=== PATIENT | male | born 1955 | race Caucasian/White ===

== ENCOUNTER 2022-09-03 10:38 | Inpatient (IN) | payer MEDICARE, SELFPAY ==
[2022-09-03] VITALS (13 sets, daily range): BP systolic 114–159; BP diastolic 74–106; PULSE 60–99; RESP 16–18; TEMP 36.7–36.8; O2SAT 95–100; BMI 27.4
--- NOTE | 2022-09-03 06:00 | USCV_ITS ---
Michael Miranda Age: 66 Gender: M : 1955 Exam Date: 09/03/2022 20:11 Ordering Phys: Katelyn Bernard MD Technologist: HERBERTH [place] [facility] [place]: slurred speech, dizziness today. 2021 - RT hemiparesis TIA. long-term smoker, continues smoking. No DM Risk Factors: slurred speech, dizziness today. 2021 - RT hemiparesis TIA. long-term smoker, continues smoking. No DM Previous Vascular Surgery: None Right Brachial BP: 135 / 81 Left Brachial BP: / Right Left Velocity (cm/s) Spectral Plaque Velocity (cm/s) Spectral Plaque Syst/Diast Broadening Syst/Diast Broadening 46.50/ 16.00 Min Homo Prox CCA 69.50 / 19.00 Min Homo 58.70/ 17.10 Min Hetro Mid CCA 77.70 / 25.60 Min Hetro 76.90/ 26.40 Mod Hetro Distal CCA 76.10 / 24.80 Mod Hetro 123.50/40.80 Mod Arun Prox ICA 131.20/ 34.70 Mod Arun 62.90/ 24.90 Mod Hetro Mid ICA 107.10/ 39.20 Mod Hetro 88.50/ 33.90 Min Hetro Distal ICA 83.20 / 34.10 Min Hetro 140.00 Min Hetro ECA 161.30 Min Hetro 1.61 ICA/CCA 1.69 Antegrade Vertebral Antegrade 53.80/ 20.70 cm/s 52.10/ 26.50 cm/s Tri Subclavian Tri 70.30 98.40 CONCLUSIONS Right ICA stenosis approximately 50%. Moderate calcified atheromatous plaque right carotid bulb/ICA. Left ICA stenosis 50-69%. Moderate calcified atheromatous plaque left carotid bulb/ICA. Normal antegrade Doppler flow noted in the right vertebral artery. Normal antegrade Doppler flow noted in the left vertebral artery. Jacob Sarmiento MD (Electronically Signed) Final Date: 04 September 2022 10:01 S
--- NOTE | 2022-09-03 10:45 | CT_ITS ---
WS: [id number] CT scan of the head, 09/03/2022 Clinical Data: Symptoms of acute stroke Comparison: None. DLP: 1144.5 mGy-cm All CT scans at [facility] use at least one of these dose optimization techniques: automated e xposure control; mA and/or kV adjustment per patient size (includes targeted exams where dose is matc hed to clinical indication); or iterative reconstruction. Findings: The ventricular system is mildly dilated without shift. No recent infarct or hemorrhage is seen. Ther e are no abnormal intracerebral masses. The cerebellum and brainstem are not remarkable. Bony windows of the skull and skull base show no fractures or erosions. The maxillary sinuses show al most total opacification. There is partial opacification of the ethmoid sinuses. The mastoid air cell s and internal auditory canals are normal. The sella turcica is intact. CT/CT head thrombolytic 95374 Impression: 1. Mild cerebral atrophy. 2. Chronic pansinusitis.
--- NOTE | 2022-09-03 10:45 | ECG_ITS ---
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 Measurements Intervals [place] Rate: 67 P: 77 [place]: 181 QRS: 49 QRSD: 95 T: 266 QT: 423 QTc: 447 Interpretive Statements SINUS RHYTHM ANTEROSEPTAL MYOCARDIAL INFARCTION , OF INDETERMINATE AGE [40+ ms Q WAVE IN V1-V4] MODERATE T-WAVE ABNORMALITY, CONSIDER LATERAL ISCHEMIA [-0.1+ mV T-WAVE IN I/aVL/V5/V6] MODERATE T-WAVE ABNORMALITY, CONSIDER INFERIOR ISCHEMIA [-0.1+ mV T-WAVE IN II/aVF] No previous ECG available for comparison Electronically Signed On 09-03-2022 23:09:14 CDT by Melody Jacobo M.D. [id number]
--- NOTE | 2022-09-03 10:50 | ED_ITS ---
HPI - Neuro Symptoms/Deficit General: Chief Complaint: Neuro Symptoms/Deficit Stated Complaint: TIA Time Seen by Provider: 09/03/22 10:45 Source: patient Mode of arrival: EMS History of Present Illness: 66-year-old male presents emergency room complaining difficulty speaking. He said woke up this morning and his speech seemed to be slurred. Last time he knows his speech seemed normal to him was around 8 PM last night his daughter noticed that his speech was slurred shortly after he got up this morning. He states he also felt a little bit dizzy sign difficulty with swallowing. He tells me if he still feels like his speech is slurred. Patient is a dentulous a little bit difficult to understand. There is no one at the bedside that can confirm his baseline speech pattern. He denies chest pain or abdominal pain or shortness of breath. Last Observed Normal: 20:00 Location: speech Severity: mild Relieving factors: none Exacerbating factors: none Associated symptoms: Deny chest pain, cough, diaphoresis, fevers/chills, headache(s), anorexia, malaise, nausea, seizures, short of breath, syncope, tingling, vertigo, vomiting or weakness Treatments Prior to Arrival: none Review of Systems Const: Denies: fever(s), chills, fatigue, malaise or diaphoresis ENMT: Denies: throat pain, ear or mastoid pain, nasal discharge or nasal congestion Card: Denies: chest pain, palpitations, irregular heart rhythm, edema or syncope Resp: Denies: dyspnea, productive cough or non-productive cough GI: Denies: abdominal pain, nausea or vomiting : Denies: flank pain, dysuria, urinary frequency or urinary urgency Skin/Breast: Denies: rash or pruritus Neuro: Reports: Slurred speech present; Denies: headache(s) or vertigo Psych: Reports: anxiety PFSH ED PFSH: Medical History (Updated 09/04/22 @ 06:13 by Getachew Curtis DO) HTN (hypertension) Hx of completed stroke NIH stroke score NIHSS: Level Of Consciousness - 1a: 0 Level Of Consciousness Questions - 1b: Both Correct Level Of Consciousness Commands - 1c: Both Correct Best Gaze - 2: Normal Visual [place] - 3: No Visual Loss Facial Palsy - 4: Normal Motor Arm Right - 5: No Drift Motor Arm Left - 5: No Drift Motor Leg Right - 6: No Drift Motor Leg Left - 6: No Drift Limb Ataxia - 7: Absent Sensory - 8: Normal Best Language - 9: No Aphasia Dysarthia - 10: Mild/Moderate Dysarthia Extinction And Inattention - 11: 0 Score: Total Score: 1 Physical Exam Const: GENERAL APPEARANCE: cooperative and comfortable ORIENTATION/CONSCIOUSNESS: Yes awake, Yes oriented to person, Yes oriented to place and Yes oriented to time HENMT: COMMON NORMALS: normocephalic, atraumatic and hearing grossly normal bilaterally HEAD & SCALP: normocephalic and atraumatic Resp: COMMON NORMALS: normal respiratory effort, No retractions, No use of accessory muscles and clear to auscultation bilaterally AUSCULTATION: clear to auscultation bilaterally Cardio: COMMON NORMALS: regular rate, regular rhythm and No murmurs present (Cardio) RATE: regular rate RHYTHM: regular rhythm GI: COMMON NORMALS: Soft to palpation and No hepatosplenomegaly present AUSCULTATION: Yes normoactive bowel sounds PALPATION: Yes Soft to palpation, No Tenderness to palpation present (GI), No Guarding due to palpation present (GI) and Yes No hepatosplenomegaly present Extremity: COMMON NORMALS: normal to inspection, capillary refill normal, no clubbing, cyanosis or edema, no calf tenderness and no pedal edema Neuro: SENSORIUM/ORIENTATION: Yes oriented to person, Yes oriented to place and Yes oriented to time Skin: COMMON NORMALS: no rashes or lesions noted GENERAL SKIN EXAM: no rashes or lesions noted Course Vital Signs: Vital signs: Vital Signs Temperature 98.0 F 09/04/22 05:46 Pulse Rate 75 09/04/22 05:46 Respiratory Rate 16 09/04/22 05:46 Blood Pressure 114/80 09/04/22 05:46 Pulse Oximetry 94 09/04/22 05:18 Oxygen Delivery Me thod 09/04/22 05:18 MDM - Neuro Symptoms/Deficit Medical Decision Making History of CVA with new onset of slurred speech. Family at the bedside states his speech is still slurred and has not resolved. He is outside the window for any tPA and stroke score is below what would be considered eligible for embolectomy. Repeat NIH evaluation after his initial work-up was completed and is unchanged. We will admit for evaluation for CVA patient tells me he is previously had a CVA but he is not taking any antiplatelet therapy or statin. He will need further evaluation and potential interventions for secondary prevention. Medical Records I reviewed the patient's medical records. Lab Data I reviewed the patient's lab results. 09/04/22 05:05 09/04/22 05:[address] 09/03/22 10:45 Impression: 1. Mild cerebral atrophy. 2. Chronic pansinusitis. Laboratory Results WBC 8.0 10^3/uL (4.0-10.0) 09/03/22 11:21 RBC 4.11 10^6/uL (4.1-5.3) 09/03/22 11:21 Hgb 13.6 g/dL (11.7-16.6) 09/03/22 11: Hct 39.6 % (42.0-52.0) L 09/03/22 11: MCV 96.4 fl (80-94) H 09/03/22 11:21 MCH 33.1 pg (28.0-34.0) 09/03/22 11:21 MCHC 34.3 g/dL (30.0-36.0) 09/03/22 11:21 RDW 12.5 % (12.1-15.1) 09/03/22 11:21 Plt Count 291 10^3/cmm (130-400) 09/03/22 11:21 MPV 9.9 fL (7.4-10.4) 09/03/22 11:21 Neut % (Auto) 77.4 % 09/03/22 11:21 Lymph % (Auto) 12.7 % 09/03/22 11:21 [place] % (Auto) 7.2 % 09/03/22 11:21 Eos % (Auto) 1.5 % 09/03/22 11:21 Baso % (Auto) 1.0 % 09/03/22 11:21 Neut # (Auto) 6.20 10^3/uL (1.8-7.7) 09/03/22 11:21 Lymph # (Auto) 1.0 10^3/uL (0.8-4.8) 09/03/22 11:21 [place] # (Auto) 0.6 10^3/uL (0.2-0.9) 09/03/22 11:21 Eos # (Auto) 0.1 10^3/uL (0.0-0.8) 09/03/22 11:21 Baso # (Auto) 0.1 10^3/uL (0.0-0.1) 09/03/22 11:21 Nucleated RBC % (auto) 0 % 09/03/22 11:21 Nucleated RBCs # 0.0 /100WBC 09/03/22 11:21 PT 14.30 SECONDS (12.1-14.9) 09/03/22 11:21 INR 1.07 (0.8-1.2) 09/03/22 11:21 APTT 28.2 SECONDS (23.9-36.7) 09/03/22 11:21 Sodium 134 mmol/L (136-145) L 09/03/22 11:21 Potassium 3.9 mmol/L (3.5-5.1) 09/03/22 11:21 Chloride 98 mmol/L (98-107) 09/03/22 11:21 Carbon Dioxide 26 mmol/L (22-29) 09/03/22 11:21 Anion Gap 13.9 (5-19) 09/03/22 11:21 BUN 7 mg/dL (8-23) L 09/03/22 11:21 Creatinine 0.8 mg/dL (0.7-1.2) 09/03/22 11:21 GFR Calculation 97.3 mL/min (90-130) 09/03/22 11:21 Glucose 91 mg/dL (65-115) 09/03/22 11:21 Calculated Osmolality 276 mOsm/kg (285-295) L 09/03/22 11:21 Calcium 9.1 mg/dL (8.5-10.5) 09/03/22 11:21 Total Bilirubin 0.6 mg/dL (0.15-1.2) 09/03/22 11:21 AST 22 U/L (0-40) 09/03/22 11:21 ALT 9 U/L (0-41) 09/03/22 11:21 Alkaline Phosphatase 94 U/L (40-130) 09/03/22 11:21 Total Protein 6.5 g/dL (6.6-8.7) L 09/03/22 11:21 Albumin 3.8 g/dL (3.5-5.2) 09/03/22 11:21 Globulin 2.7 g/dL (1.3-4.6) 09/03/22 11:21 Urine Color Yellow (Yellow) 09/03/22 12:31 Urine Appearance Clear (CLEAR) 09/03/22 12:31 Urine pH 6.5 (5-7) 09/03/22 12:31 Ur Specific [place] 1.005 (1.005-1.030) 09/03/22 12:31 Urine Protein Neg (Negative) 09/03/22 12:31 Urine Glucose (UA) Norm (Normal) 09/03/22 12:31 Urine Ketones 1+ (Negative) H 09/03/22 12:31 Urine Blood Neg (Negative) 09/03/22 12:31 Urine Nitrate Negative (Negative) 09/03/22 12:31 Urine Bilirubin Neg (Negative) 09/03/22 12:31 Urine Urobilinogen 4 mg/dL (Negative) H 09/03/22 12:31 Ur Leukocyte Esterase Negative (Negative) 09/03/22 12:31 Urine Opiates Screen Negative ng/mL (Negative) 09/03/22 12:31 Ur Barbiturates Screen Negative ng/mL (Negative) 09/03/22 12:31 Ur Phencyclidine Scrn Negative ng/mL (Negative) 09/03/22 12:31 Ur Amphetamines Screen Negative ng/mL (Negative) 09/03/22 12:31 U Benzodiazepines Scrn Negative ng/mL (Negative) 09/03/22 12:31 Urine Cocaine Screen Negative ng/mL (Negative) 09/03/22 12:31 U Marijuana (THC) Screen Positive ng/mL (Negative) H 09/03/22 12:31 Discharge Plan Discharge Patient Disposition: Admitted As Inpatient Admit Provider: Katelyn Bernard Clinical Impression: CVA (cerebral vascular accident) Condition: Stable Coding Level of Care Code 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
--- NOTE | 2022-09-03 11:03 | PC.PHAR ---
MEDICATIONS VERIFIED USING EXTERNAL MED LIST LAST FILL[facility]
[2022-09-03 11:30] LABS: Basophils # 0.1 10^3/uL (0.0-0.1); Eosinophils # 0.1 10^3/uL (0.0-0.8); Eosinophils % 1.5 %; Hematocrit 39.6 % (42.0-52.0); Hemoglobin 13.6 g/dL (11.7-16.6); Lymphocytes % 12.7 %; Mean Corpuscular HGB Conc 34.3 g/dL (30.0-36.0); Mean Corpuscular Hemoglobin 33.1 pg (28.0-34.0); Mean Corpuscular Volume 96.4 fl (80-94); Mean Platelet Volume 9.9 fL (7.4-10.4); Monocytes # 0.6 10^3/uL (0.2-0.9); Monocytes % 7.2 %; Neutrophils % 77.4 %; Nucleated Red Blood Cells % 0 %; Platelet Count 291 10^3/cmm (130-400); Red Blood Count 4.11 10^6/uL (4.1-5.3); Red Cell Distribution Width 12.5 % (12.1-15.1)
[2022-09-03 11:42] LABS: INR 1.07 (0.8-1.2); Partial Thromboplastin Time 28.2 SECONDS (23.9-36.7)
[2022-09-03 11:49] LABS: Alanine Aminotransferase 9 U/L (0-41); Albumin Level 3.8 g/dL (3.5-5.2); Alkaline Phosphatase 94 U/L (40-130); Anion Gap 13.9 (5-19); Aspartate Amino Transferase 22 U/L (0-40); Blood Urea Nitrogen 7 mg/dL (8-23); Calcium 9.1 mg/dL (8.5-10.5); Carbon Dioxide 26 mmol/L (22-29); Chloride 98 mmol/L (98-107); Globulin 2.7 g/dL (1.3-4.6); Glomerular Filtration Rate 97.3 mL/min (90-130); Glucose 91 mg/dL (65-115); Osmolality Calculated 276 mOsm/kg (285-295); Potassium 3.9 mmol/L (3.5-5.1); Sodium 134 mmol/L (136-145); Total Bilirubin 0.6 mg/dL (0.15-1.2); Total Protein 6.5 g/dL (6.6-8.7)
[2022-09-03 12:40] LABS: Add Urine Microscopic? NO; Charge for UA Resulting for Rev
[2022-09-03 12:49] LABS: Bilirubin Urine Neg (Negative); Blood Urine Neg (Negative); Glucose Urine UA Norm (Normal); Ketones Urine 1+ (Negative); Leukocyte Esterase Urine Negative (Negative); Nitrate Urine Negative (Negative); Protein Urine Neg (Negative); Specific Gravity, Urine 1.005 (1.005-1.030); Urine Appearance Clear (CLEAR); Urine Color Yellow (Yellow); Urobilinogen Urine 4 mg/dL (Negative); pH Urine 6.5 (5-7)
[2022-09-03 13:06] LABS: Amphetamines Screen Urine Negative (Negative); Barbiturates Screen Urine Negative (Negative); Benzodiazepines Screen Urine Negative (Negative); Cocaine Screen Urine Negative (Negative); Opiate Screen Urine Negative (Negative); PCP Screen Urine Negative (Negative); THC Screen Urine Positive (Negative)
--- NOTE | 2022-09-03 19:52 | USCV_ITS ---
RubenMichael Age: 66 Gender: M : 1955 Exam Date: 09/03/2022 20:43 Ordering Phys: Katelyn Bernard MD Technologist: HERBERTH [place] [facility] [place] Indication: dizzines, slurred speech today. 2021 RT hemiparesis TIA. Long-term smoker, continues smoking, no DM. BP: 135 / 81 HR: 65 Rhythm: Sinus Technical Quality: Adequate MEASUREMENTS (Male / Female) Normal Values 2D ECHO LV Diastolic Diameter PLAX 4.2 cm 4.2 - 5.9 / 3.9 - 5.3 cm LV Systolic Diameter PLAX 3.0 cm IVS Diastolic Thickness 1.2 cm 0.6 - 1.0 / 0.6 - 0.9 cm IVS Systolic Thickness 1.9 cm LVPW Diastolic Thickness 1.5 cm 0.6 - 1.0 / 0.6 - 0.9 cm LVPW Systolic Thickness 1.7 cm LVOT Diameter 1.9 cm LV Ejection Fraction 2D Teich 56.7 % LV Ejection Fraction MOD 2C 48.9 % LV Ejection Fraction 2C AL 48.9 % LA Diameter 3.5 cm LA Width 3.8 cm LA Height 3.8 cm RA Width 3.4 cm RA Height 4.0 cm Aorta at Sinotubular Diameter 3.2 cm IVC Diameter 1.1 cm M-MODE Aortic Annulus Diameter 3.5 cm LA Ao Ratio MM 0.9 DOPPLER AV Peak Velocity 105.0 cm/s LVOT Peak Velocity 72.0 cm/s AV Area Cont Eq vti 2.0 cm squared AV Area Cont Eq pk 2.0 cm squared MV Area PHT 3.7 cm squared Mitral E to A Ratio 0.8 MV E' Velocity 39.5 cm/s Mitral E to MV E' Ratio 9.6 Mitral E to LV E' Lateral Ratio 7.9 Mitral E to LV E' Septal Ratio 12.5 TR Peak Velocity 211.7 cm/s TR Peak Gradient 17.9 mmHg TV Peak E Velocity 51.0 cm/s Right Atrial Pressure 5.0 mmHg Pulmonary Artery Systolic Pressu 22.9 mmHg PV Peak Velocity 85.0 cm/s RV Acceleration Time 0.1 s RV Ejection Time 0.3 s RV AcT/ET 0.3 FINDINGS Left Ventricle Left ventricle is normal in size. LV systolic function is moderate to severely reduced with EF of 30-35%. Severe hypokinesis of mid to apical anterior, anterolateral, apical and inferoseptal hernandez are seen. Right Ventricle Normal in size and function Right Atrium Normal in size Left Atrium Normal in size Mitral Valve Structurally normal mitral valve. Mild mitral regurgitation. Aortic Valve No significant stenosis or regurgitation seen. Tricuspid Valve Trace tricuspid regurgitation. Insufficient TR jet to evaluate RVSP. Pulmonic Valve Not well visualized Pericardium Normal Aorta Normal in size IVC Appears to be normal CONCLUSIONS LV systolic function is moderate to severely reduced with EF of 30 to 35%. Above mentioned regional wall motion abnormalities are noted Mild mitral regurgitation Trace tricuspid regurgitation No comparison studies are available. Chandrakant Méndez MD (Electronically Signed) Final Date: 04 September 2022 10:23 S
[2022-09-03] MEDS: atorvastatin 40 mg Tablet PO (21:36)
[2022-09-03] MEDS: enoxaparin 40 mg/0.4 mL Syringe SUBCUT (21:37)
[2022-09-03] MEDS: sodium chloride 0.9% 1,000 ML 100 ML IV (21:38)
--- NOTE | 2022-09-03 22:54 | P.HP_ITS ---
Providers/Chief Complaint Admitting Physician: Katelyn Bernard MD Chief Complaint: TIA History of Present Illness Michael Miranda is a 66 year old male who presented to ER with slurred speech reportedly new onset, last known normal at 8 pm on 09/02/22. Out of tPA window. He is somewhat overweight historian therefore difficult to get an exact history from him. He states that last week he established care with a new primary care provider. He had previously lived in [place], recently moved to the area 3 months ago. States that he was on Klonopin and Abilify but recently his Klonopin was discontinued and instead he was started on clonidine. He seems to think that since making this change she has been having some slurred speech and trouble with his vision. He also feels off balance. He also reports some palpitations. Denies any chest pain dyspnea syncope. Review of Systems General: Reports: 10 or more systems reviewed and unremarkable except in HPI and below Const: Denies: fever(s), chills or body aches Eyes: Denies: change in vision, blurry vision or photophobia ENMT: Reports: hoarseness; Denies: throat pain, enlarged tonsils, odynophagia or nasal congestion Card: Denies: chest pain, palpitations, irregular heart rhythm, edema, swelling of feet/ankles, lightheadedness, pre-syncope, dyspnea on exertion or orthopnea Resp: Denies: dyspnea, productive cough, non-productive cough, wheezing, stridor, pain on inspiration, change in phlegm color, hemoptysis or chest congestion GI: Denies: abdominal pain, nausea, vomiting, hematemesis, coffee ground emesis, dysphagia, heartburn, diarrhea, constipation, GI cramping, change in stool character, hematochezia or melena : Denies: flank pain, dysuria, urinary frequency, urinary urgency, urinary hesitancy or hematuria Musc: Denies: neck pain, back pain, extremity pain, joint swelling, joint warmth or deformity Neuro: Denies: headache(s), numbness in extremities, weakness in extremities, sensory changes, difficulty walking, frequent falls, dizziness, vertigo, behavioral changes, Slurred speech present or seizure-like activity Psych: Denies: anxiety, depression, suicidal ideation or homicidal ideation Endo: Denies: polyuria, polydipsia, tired all the time, cold intolerance or hot flashes Russell/Lymph: Denies: easy bruising or easy bleeding Medications/Allergies Home Medications Medication Instructions Recorded Confirmed Last Taken Type aripiprazole 10 mg tablet 10 mg PO DAILY 09/03/22 09/03/22 Unknown History clonidine HCl 0.1 mg tablet 0.1 mg PO BEDTIME 09/03/22 09/03/22 09/02/22 History fluticasone fur. 200 mcg-umeclid 1 inh inhalation DAILY 09/03/22 09/03/22 09/03/22 History 62.5 mcg-vilant 25 mcg inhalat.powder (Trelegy Ellipta) trazodone 100 mg tablet 200 mg PO BEDTIME 09/03/22 09/03/22 09/02/22 History PFSH Acute PFSH: Medical History HTN (hypertension) Hx of completed stroke Vitals/I&O/Wt Last Vital Signs Temp 98.0 F 09/03/22 22:22 Pulse 63 09/03/22 22:22 Resp 17 09/03/22 22:22 BP 123/79 09/03/22 22:22 Pulse Ox 95 09/03/22 22:22 O2 Del Method 09/03/22 22:22 Weight last 48 hrs Weight 77.111 kg Physical Exam Narrative: General: No acute distress, AO x3, edentulous HEENT: PERRLA, pupils bilaterally equal and reactive, pallors not present Chest: Normal vesicular breath sounds, no added sounds, equal good air entry bilaterally CVS: S1-S2 regular, no murmurs, no tachycardia, no gallops, no rubs Abdomen: Soft, nontender, no organomegaly, bowel sounds present Neuro: No focal deficits, no facial deformity, AO x3, power 5/5 in all limbs Data 09/03/22 11:21 09/03/22 11:21 A&P Assessment and plan (1) CVA (cerebral vascular accident): CT head without acute events admit to telemetery monitoring carotid artery US, echocardiogram neuro checks q4h PT/OT/Speech eval nursing dysphagia screen permissive HTN to be allowed first 48 hrs ASA 81, atorvastatin 40mg daily check lipid panel, Hba1c Holding home dose clonidine for permissive HTN Attestations Medical Necessity Statement*: observation, anticipate less than 2 midnight stay Coding Level of Care Code Acute Code for Chg Fwd Diagnoses CVA (cerebral vascular accident) I63.9
[2022-09-03] MEDS: trazodone 100 mg Tablet 200 MG PO (23:10)
[2022-09-04] VITALS (14 sets, daily range): BP systolic 103–155; BP diastolic 67–95; PULSE 49–103; RESP 16–19; TEMP 36.5–36.8; O2SAT 94–99
[2022-09-04] MEDS: ALPRAZolam 0.5 mg Tablet PO (01:00)
[2022-09-04 05:13] LABS: Basophils # 0.1 10^3/uL (0.0-0.1); Basophils % 1.3 %; Eosinophils # 0.3 10^3/uL (0.0-0.8); Eosinophils % 4.9 %; Hematocrit 36.6 % (42.0-52.0); Hemoglobin 12.5 g/dL (11.7-16.6); Lymphocytes # 1.6 10^3/uL (0.8-4.8); Lymphocytes % 22.8 %; Mean Corpuscular HGB Conc 34.2 g/dL (30.0-36.0); Mean Corpuscular Hemoglobin 33.2 pg (28.0-34.0); Mean Corpuscular Volume 97.1 fl (80-94); Mean Platelet Volume 9.9 fL (7.4-10.4); Monocytes # 0.6 10^3/uL (0.2-0.9); Monocytes % 9.2 %; Neutrophils # 4.26 10^3/uL (1.8-7.7); Neutrophils % 61.5 %; Nucleated Red Blood Cells % 0 %; Platelet Count 261 10^3/cmm (130-400); Red Blood Count 3.77 10^6/uL (4.1-5.3); Red Cell Distribution Width 12.5 % (12.1-15.1); White Blood Count 6.9 10^3/uL (4.0-10.0)
--- NOTE | 2022-09-04 05:21 | ECG_ITS ---
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 Measurements Intervals [place] Rate: 64 P: 86 AL: 167 QRS: 59 QRSD: 104 T: 260 QT: 496 QTc: 515 Interpretive Statements SINUS RHYTHM ANTEROSEPTAL MYOCARDIAL INFARCTION , PROBABLY RECENT [40+ ms Q WAVE IN V1-V4] ACUTE CO Compared to ECG 09/03/2022 10:52:03 T-wave abnormality no longer present Possible ischemia no longer present Myocardial infarct finding still present Electronically Signed On 09-04-2022 16:46:48 CDT by Chandrakant Méndez M.D. [id number]
[2022-09-04] MEDS: sodium chloride 0.9% 1,000 ML 100 ML IV (05:22)
[2022-09-04 05:24] LABS: Estmated Average Glucose 103; Hemoglobin A1C 5.2 % (4.0-6.0)
[2022-09-04 05:33] LABS: Alanine Aminotransferase 8 U/L (0-41); Albumin Level 3.1 g/dL (3.5-5.2); Alkaline Phosphatase 81 U/L (40-130); Anion Gap 12.8 (5-19); Aspartate Amino Transferase 19 U/L (0-40); Blood Urea Nitrogen 6 mg/dL (8-23); Calcium 8.3 mg/dL (8.5-10.5); Carbon Dioxide 25 mmol/L (22-29); Chloride 104 mmol/L (98-107); Chol HDL Ratio 3.25 mg/dL (1.0-5.00); Cholesterol 117 mg/dL (0-200); Globulin 2.1 g/dL (1.3-4.6); Glucose 91 mg/dL (65-115); HDL Cholesterol 36 mg/dL (60-100); LDL Cholesterol Calculated 68 mg/dL (50-129); LDL HDL Ratio 1.89 RATIO (0.00-3.22); Osmolality Calculated 283 mOsm/kg (285-295); Potassium 3.8 mmol/L (3.5-5.1); Sodium 138 mmol/L (136-145); Total Bilirubin 0.4 mg/dL (0.15-1.2); Total Protein 5.2 g/dL (6.6-8.7); Triglycerides 67 mg/dL (0-150)
[2022-09-04 05:58] LABS: Magnesium 1.6 mg/dL (1.7-2.3)
[2022-09-04] MEDS: aspirin 81 mg EC Tablet PO (09:30)
--- NOTE | 2022-09-04 15:58 | PM.PN ---
Subjective Subjective: Patient was noted to have multiple VPCs on telemetry monitoring along with being in bigeminy rhythm. Mag was low at 1.6 and has been supplemented with 1 g IV. In the interim patient's echocardiogram has returned and shows LV systolic dysfunction with moderate to severely reduced EF of 30 to 35%. There are regional wall motion abnormalities by way of severe hypokinesis of the mid to apical anterior anterolateral and apical and inferoseptal hernandez. Patient still denies any chest pain however states that on the day he had his stroke he had significant palpitations. History is also taken from his daughter today who states that patient did complain of some chest discomfort 3 days ago. He has no known past history of CAD or TX in the past. Daughter states that he was diagnosed with a possible stroke back in February. Carotid ultrasound today also shows left ICA 50 to 69% stenosis. His other past comorbidities include a history of schizophrenia, and generalized anxiety disorder for which he takes Klonopin 0.5 mg in the a.m. and 0.5 mg at night. For some reason it appears his Klonopin was recently replaced with clonidine. Patient and daughter are unclear about the reason for switch. They visited mental health clinic in [place] and reportedly this is where the change was made. His other medications are Abilify and trazodone. Medications: Reviewed: Yes Vitals/I&O/Wt Last Vital Signs Temp 97.8 F 09/04/22 12:04 Pulse 103 H 09/04/22 12:04 Resp 19 H 09/04/22 12:04 BP 144/91 09/04/22 12:04 Pulse Ox 96 09/04/22 12:04 O2 Del Method 09/04/22 12:04 09/04/22 09/04/22 09/04/22 06:59 14:59 22:59 Intake Total 773.333 / 773.333 412 / 412 Output Total 600 / 600 600 / 600 Balance 173.333 / 173.333 -188 / -188 Weight last 48 hrs Weight 77.111 kg Physical Exam Narrative: General: No acute distress, AO x3 HEENT: PERRLA, pupils bilaterally equal and reactive, pallors not present Chest: Normal vesicular breath sounds, no added sounds, equal good air entry bilaterally CVS: S1-S2 regular, no murmurs, no tachycardia, no gallops, no rubs Abdomen: Soft, nontender, no organomegaly, bowel sounds present Neuro: No focal deficits, no facial deformity, AO x3, power 5/5 in all limbs Data 09/04/22 05:05 09/04/22 05:05 A&P Assessment and plan (1) CVA (cerebral vascular accident): CT head without acute events His symptoms are that of slurred speech. No other focal motor deficits Per daughter he had difficulty even saying her name. Speech appears to have improved since onset of symptoms. He is edentulous. carotid artery US with 50 to 60% left ICA stenosis, will refer for outpatient evaluation with vascular surgery. Telemetry without A-fib but shows multiple VPCs and bigeminy rhythm. Echocardiogram shows severely reduced EF of 30 to 35% with regional wall motion abnormalities. Patient denies any past history of CAD, unclear timeline as to when this may have developed. We will check a troponin series to evaluate for any potential recent events. PT/OT/Speech eval appreciated Discontinue IV fluids given evidence of cardiomyopathy and low EF. Clinically patient is not in decompensated heart failure at this time Continue ASA 81, atorvastatin 40mg daily Within normal limit lipid panel, Hba1c (2) Ventricular bigeminy: Continue to monitor on telemetry. Correct magnesium with 1 g IV today. Potassium is within range at 3.8. May be related to cardiomyopathy (3) Hypomagnesemia: Replete with IV magnesium (4) VPC (ventricular premature complex): (5) Cardiomyopathy: EF of 30 to 35% with regional wall motion abnormalities. Patient denies any current chest pain. EKG showing T wave inversion, indeterminate age EKG and trop series ordered Continue ASA 81mg daily , lipitor 40mg daily Awaiting troponin series may may help establish timeline of events (6) Nicotine dependence: nicotine patch added (7) TIANA (generalized anxiety disorder): resume home dose of klonopin 0.5mg BID Attestations Medical Necessity Statement*: change to inpatient admission given changes on echo, further cardiac evaluation Coding Level of Care Code Acute Code for Chg Fwd Diagnoses CVA (cerebral vascular accident) I63.9 Ventricular bigeminy I49.8 Hypomagnesemia E83.42 VPC (ventricular premature complex) I49.3 Cardiomyopathy I42.9 Nicotine dependence F17.200 TIANA (generalized anxiety disorder) F41.1
--- NOTE | 2022-09-04 16:05 | ECG_ITS ---
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 Measurements Intervals [place] Rate: 65 P: 88 SC: 170 QRS: 83 QRSD: 99 T: 261 QT: 453 QTc: 472 Interpretive Statements SINUS RHYTHM LOW QRS VOLTAGE IN PRECORDIAL LEADS [QRS DEFLECTION < 1.0 mV IN CHEST LEADS] ANTEROSEPTAL MYOCARDIAL INFARCTION , OF INDETERMINATE AGE [40+ ms Q WAVE IN V1-V4] MARKED T-WAVE ABNORMALITY, CONSIDER LATERAL ISCHEMIA [-0.5+ mV T-WAVE IN I/aVL/V5/V6] MODERATE T-WAVE ABNORMALITY, CONSIDER INFERIOR ISCHEMIA [-0.1+ mV T-WAVE IN II/aVF] Compared to ECG 09/04/2022 05:58:10 Low QRS voltage now present T-wave abnormality now present Possible ischemia now present Myocardial infarct finding still present Electronically Signed On 09-04-2022 16:27:48 CDT by Chandrakant Méndez M.D. [id number]
[2022-09-04] MEDS: nicotine 21 mg Patch 1 PATCH TRANSDERMA (16:50)
[2022-09-04 16:54] LABS: Troponin(5th) Baseline 140 ng/L (0-15)
[2022-09-04] MEDS: CLONazepam 0.5 mg Tablet PO (16:57)
--- NOTE | 2022-09-04 17:27 | ECG_ITS ---
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 Measurements Intervals [place] Rate: 64 P: 93 MA: 182 QRS: 77 QRSD: 92 T: 259 QT: 468 QTc: 485 Interpretive Statements SINUS RHYTHM ANTEROSEPTAL MYOCARDIAL INFARCTION , PROBABLY RECENT [40+ ms Q WAVE IN V1-V4] ACUTE MO Compared to ECG 09/04/2022 16:05:07 T-wave abnormality no longer present Possible ischemia no longer present Myocardial infarct finding still present Electronically Signed On 09-05-2022 7:43:04 CDT by Chandrakant Méndez M.D. [email or web address]/[id number]
--- NOTE | 2022-09-04 17:48 | P.CONIM_ITS ---
Providers/Reason For Consult Consulting Physician/Specialty*: RANDELL Jacobo MD/cardiology Reason for Consult*: Patient mid to the hospital with a CVA, has an abnormal EKG and echocardiogram showing LV dysfunction Requesting Physician: Dr. Bernard Attending Physician: Katelyn Bernard MD History of Present Illness History of Present Illness Michael Miranda is a 66 year old male with a history of schizophrenia, hepatitis C and severe COPD was admitted to hospital with features of a CVA. His main symptom was slurred speech and some facial weakness. His symptoms are almost subsided at this time. His echocardiogram revealed severe diffuse hypokinesia of the LV apex with ejection fraction of around 30 to 35%. His EKG showed diffuse giant inversions in the leads V2 to V6, II, III and aVF. He had minimal ST elevation in these leads as well. Apparently he never had any chest pain. He is not short of breath. No previous history for coronary disease, myocardial infarction or congestive heart failure. He had an episode of heart pounding all the night when he had the CVA. History lasted for several minutes and he felt like the heart is going to come out of the chest . He never had this symptom prior to this or following this episode. He has a chronic cough from the COPD. He also is on medication for schizophrenia from the behavioral health clinic. He is a chronic smoker. He also smokes marijuana. He is currently on Chantix and and has been smoking only 2 cigarettes a day lately. No alcohol abuse or any other substance abuse. He is adopted and has no information with the family. He lives with his daughter. Review of Systems Narrative: CONSTITUTIONAL: No fever or chills. 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 ENT: No hoarseness of voice, auditory disturbances or sore throat. CARDIOVASCULAR: As mentioned above. RESPIRATORY: As mentioned above GASTROINTESTINAL: No hematemesis or melena. GENITOURINARY: No dysuria or hematuria. INTEGUMENTARY: No skin rashes or history of skin cancer. NEURO: As mentioned above PSYCHIATRIC: No history of psychosis or major depression. HEMATOLOGIC: No bleeding disorders or significant anemia. ENDOCRINE: No history of polyuria or polydipsia. MUSCULOSKELETAL: No recent joint pain or swelling. ALLERGY/IMMUNOLOGY: As mentioned above. Medications/Allergies Home Medications Medication Instructions Recorded Confirmed Last Taken Type aripiprazole 10 mg tablet 10 mg PO DAILY 09/03/22 09/03/22 Unknown History clonidine HCl 0.1 mg tablet 0.1 mg PO BEDTIME 09/03/22 09/03/22 09/02/22 History fluticasone fur. 200 mcg-umeclid 1 inh inhalation DAILY 09/03/22 09/03/22 09/03/22 History 62.5 mcg-vilant 25 mcg inhalat.powder (Trelegy Ellipta) trazodone 100 mg tablet 200 mg PO BEDTIME 09/03/22 09/03/22 09/02/22 History Allergies Allergy/AdvReac Type Severity Reaction Status Date / Time No Known Allergies Allergy Verified 09/04/22 20:53 Current Medications Generic Name Dose Route Start Last Admin Trade Name Freq PRN Reason Stop Dose Admin Aspirin 81 mg 09/04/22 09:00 09/04/22 09:30 Aspirin 81 Mg Ec Tablet PO 81 mg DAILY SUDHAKAR Administration Atorvastatin Calcium 40 mg 09/03/22 21:00 09/03/22 21:36 Atorvastatin 40 Mg Tablet PO 40 mg BEDTIME SUDHAKAR Administration Clonazepam 0.5 mg 09/04/22 15:55 09/04/22 16:57 Clonazepam 0.5 Mg Tablet PO 0.5 mg BID PRN Administration anxiety Enoxaparin Sodium 40 mg 09/03/22 19:52 09/03/22 21:37 Enoxaparin 40 Mg/0.4 Ml Syringe SUBCUT 40 mg Q24H SUDHAKAR Administration Nicotine 1 patch 09/04/22 16:41 09/04/22 16:50 Nicotine 21 Mg Patch TRANSDERMA 1 patch DAILY SUDHAKAR Administration Trazodone HCl 200 mg 09/03/22 23:00 09/03/22 23:10 Trazodone 100 Mg Tablet PO 200 mg BEDTIME SUDHAKAR Administration PFSH Acute PFSH: Medical History HTN (hypertension) Hx of completed stroke Vitals/I&O/Wt Last Vital Signs Temp 98.0 F 09/04/22 16:30 Pulse 59 L 09/04/22 16:30 Resp 17 09/04/22 16:30 BP 155/95 09/04/22 16:30 Pulse Ox 98 03/22/23 16:30 O2 Del Method 09/04/22 16:30 09/04/22 09/04/22 09/04/22 06:59 14:59 22:59 Intake Total 773.333 / 773.333 412 / 412 1400 / 1812 Output Total 600 / 600 600 / 600 Balance 173.333 / 173.333 -188 / -188 1400 / 1212 Weight last 48 hrs Weight 170 lb Physical Exam Narrative: GENERAL: The patient is alert and oriented times three. Not in any acute distress. HEENT: No significant pallor, icterus or lymphadenopathy.Oral cavity: There are no mucous membrane lesions. NECK: Trachea appears to be central. No masses noted. No JVD or thyromegaly appreciated. RESPIRATORY: Chest is symmetrical. No intercostals muscle retraction or any accessory muscle activation. There is no chest wall tenderness. Breath sounds are heard bilaterally. No rales or rhonchi heard. No evidence of any consolidation. BREASTS: Deferred. HEART: The heart sounds are normal. No S3 or S4. No significant murmurs. No pericardial rub ABDOMEN: No vessel pulsations or distention. No tenderness. No organomegaly appreciated. Bowel sounds are normally heard. : Deferred. RECTAL: Deferred. LYMPHATIC: No lymphadenopathy noted in the neck. EXTREMITIES: No edema or cyanosis. No clubbing. MUSCULOSKELETAL: No acute joint deformities or swelling SKIN: There are no significant rashes or ecchymosis NEUROPSYCHIATRIC: The patient is alert and oriented x3. Appears to be in a good mood. No tremors or rigidity noted. Data 09/04/22 05:05 09/04/22 05:05 Other Labs: Laboratory Last Values WBC 6.9 10^3/uL (4.0-10.0) 09/04/22 05:05 RBC 3.77 10^6/uL (4.1-5.3) L 09/04/22 05:05 Hgb 12.5 g/dL (11.7-16.6) 09/04/22 05:05 Hct 36.6 % (42.0-52.0) L 09/04/22 05:05 MCV 97.1 fl (80-94) H 09/04/22 05:05 MCH 33.2 pg (28.0-34.0) 09/04/22 05:05 MCHC 34.2 g/dL (30.0-36.0) 09/04/22 05:05 RDW 12.5 % (12.1-15.1) 09/04/22 05:05 Plt Count 261 10^3/cmm (130-400) 09/04/22 05:05 MPV 9.9 fL (7.4-10.4) 09/04/22 05:05 Neut % (Auto) 61.5 % 09/04/22 05:05 Lymph % (Auto) 22.8 % 09/04/22 05:05 [place] % (Auto) 9.2 % 09/04/22 05:05 Eos % (Auto) 4.9 % 09/04/22 05:05 Baso % (Auto) 1.3 % 09/04/22 05:05 Neut # (Auto) 4.26 10^3/uL (1.8-7.7) 09/04/22 05:05 Lymph # (Auto) 1.6 10^3/uL (0.8-4.8) 09/04/22 05:05 [place] # (Auto) 0.6 10^3/uL (0.2-0.9) 09/04/22 05:05 Eos # (Auto) 0.3 10^3/uL (0.0-0.8) 09/04/22 05:05 Baso # (Auto) 0.1 10^3/uL (0.0-0.1) 09/04/22 05:05 Nucleated RBC % (auto) 0 % 09/04/22 05:05 Nucleated RBCs # 0.0 /100WBC 09/04/22 05:05 PT 14.30 SECONDS (12.1-14.9) 09/03/22 11:21 INR 1.07 (0.8-1.2) 09/03/22 11:21 APTT 28.2 SECONDS (23.9-36.7) 09/03/22 11:21 Sodium 138 mmol/L (136-145) 09/04/22 05:05 Potassium 3.8 mmol/L (3.5-5.1) 09/04/22 05:05 Chloride 104 mmol/L (98-107) 09/04/22 05:05 Carbon Dioxide 25 mmol/L (22-29) 09/04/22 05:05 Anion Gap 12.8 (5-19) 09/04/22 05:05 BUN 6 mg/dL (8-23) L 09/04/22 05:05 Creatinine 0.9 mg/dL (0.7-1.2) 09/04/22 05:05 GFR Calculation 85.0 mL/min (90-130) L 09/04/22 05:05 Glucose 91 mg/dL (65-115) 09/04/22 05:05 Estimat Average Glucose 103 09/04/22 05:05 Hemoglobin A1c 5.2 % (4.0-6.0) 09/04/22 05:05 Calculated Osmolality 283 mOsm/kg (285-295) L 09/04/22 05:05 Calcium 8.3 mg/dL (8.5-10.5) L 09/04/22 05:05 Magnesium 1.6 mg/dL (1.7-2.3) L 09/04/22 05:05 Total Bilirubin 0.4 mg/dL (0.15-1.2) 09/04/22 05:05 AST 19 U/L (0-40) 09/04/22 05:05 ALT 8 U/L (0-41) 09/04/22 05:05 Alkaline Phosphatase 81 U/L (40-130) 09/04/22 05:05 Troponin T Baseline 140 ng/L (0-15) H* 09/04/22 15:45 Total Protein 5.2 g/dL (6.6-8.7) L 09/04/22 05:05 Albumin 3.1 g/dL (3.5-5.2) L 09/04/22 05:05 Globulin 2.1 g/dL (1.3-4.6) 09/04/22 05:05 Triglycerides 67 mg/dL (0-150) 09/04/22 05:05 Cholesterol 117 mg/dL (0-200) 09/04/22 05:05 LDL Cholesterol, Calc 68 mg/dL (50-129) 09/04/22 05:05 HDL Cholesterol 36 mg/dL (60-100) L 09/04/22 05:05 LDL/HDL Ratio 1.89 RATIO (0.00-3.22) 09/04/22 05:05 Cholesterol/HDL Ratio 3.25 mg/dL (1.0-5.00) 09/04/22 05:05 Urine Color Yellow (Yellow) 09/03/22 12:31 Urine Appearance Clear (CLEAR) 09/03/22 12:31 Urine pH 6.5 (5-7) 09/03/22 12:31 Ur Specific [place] 1.005 (1.005-1.030) 09/03/22 12:31 Urine Protein Neg (Negative) 09/03/22 12:31 Urine Glucose (UA) Norm (Normal) 09/03/22 12:31 Urine Ketones 1+ (Negative) H 09/03/22 12:31 Urine Blood Neg (Negative) 09/03/22 12:31 Urine Nitrate Negative (Negative) 09/03/22 12:31 Urine Bilirubin Neg (Negative) 09/03/22 12:31 Urine Urobilinogen 4 mg/dL (Negative) H 09/03/22 12:31 Ur Leukocyte Esterase Negative (Negative) 09/03/22 12:31 Urine Opiates Screen Negative ng/mL (Negative) 09/03/22 12:31 Ur Barbiturates Screen Negative ng/mL (Negative) 09/03/22 12:31 Ur Phencyclidine Scrn Negative ng/mL (Negative) 09/03/22 12:31 Ur Amphetamines Screen Negative ng/mL (Negative) 09/03/22 12:31 U Benzodiazepines Scrn Negative ng/mL (Negative) 09/03/22 12:31 Urine Cocaine Screen Negative ng/mL (Negative) 09/03/22 12:31 U Marijuana (THC) Screen Positive ng/mL (Negative) H 09/03/22 12:31 Echo: My impression: ?LV systolic function is moderate to severely reduced with EF of ?30 to 35%.? Above mentioned regional wall motion abnormalities ?are noted ?Mild mitral regurgitation ?Trace tricuspid regurgitation ?No comparison studies are available. EKG 1: My Interpretation: Normal this rhythm with a poor R wave progression anterolaterally and inferior T wave inversions with a minimal ST elevation A&P Assessment and plan (1) Cardiomyopathy: I reviewed the patient's echocardiogram. He was found to have severe diffuse hypokinesia of the LV apex. The features may suggest a Takotsubo syndrome. Lesli arently he never had chest pain. He has no evidence of heart failure. Hemodynamically seems to be stable. For further evaluation of his symptoms, a Myocardial perfusion imaging would be appropriate. I also may start him on spironolactone 25 mg p.o. daily (2) HTN (hypertension): The blood pressure is of stage II. I may start him on a small dose of her SHELLY inhibitor namely lisinopril 5 mg p.o. daily. I will be careful not to drop the blood pressure too low (3) Abnormal EKG: Most likely this is related to Takotsubo syndrome. Underlying coronary artery disease cannot be excluded. (4) VPC (ventricular premature complex): Currently asymptomatic. (5) CVA (cerebral vascular accident): His neurological symptoms have improved significantly. Plan I may go ahead and do a Myocardial perfusion imaging tomorrow to evaluate for any underlying coronary ischemia. May be kept on Mag-Tab SR 84 mg p.o. twice daily for the ventricular arrhythmia. He to be closely monitored on telemetry. Based on the perfusion scan results, further recommendations will be made. Currently the patient has no clinical evidence of any heart failure. Consult Attestations Medical Necessity Statement: Patient requires continued hospital stay for close monitoring and further management Coding Level of Care Code 45152 Diagnoses Cardiomyopathy I42.9 HTN (hypertension) I10 Abnormal EKG R94.31 VPC (ventricular premature complex) I49.3 CVA (cerebral vascular accident) I63.9
[2022-09-04] MEDS: enoxaparin 80 mg/0.8 mL Syringe SUBCUT (18:17)
[2022-09-04 18:55] LABS: Troponin 5 2HR Delta 7.4 ABS# (0-10)
[2022-09-04 18:56] LABS: Troponin 5 2HR 147.4 ng/L (0-15)
[2022-09-04] MEDS: ipratropium-albuterol 3 mL Neb INHALATION (20:30)
--- NOTE | 2022-09-04 20:37 | ECG_ITS ---
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 Measurements Intervals [place] Rate: 60 P: 79 MS: 158 QRS: 55 QRSD: 93 T: 252 QT: 452 QTc: 454 Interpretive Statements SINUS RHYTHM LOW QRS VOLTAGE IN PRECORDIAL LEADS [QRS DEFLECTION < 1.0 mV IN CHEST LEADS] ANTEROSEPTAL MYOCARDIAL INFARCTION , OF INDETERMINATE AGE [40+ ms Q WAVE IN V1-V4] MARKED T-WAVE ABNORMALITY, CONSIDER LATERAL ISCHEMIA [-0.5+ mV T-WAVE IN I/aVL/V5/V6] MODERATE T-WAVE ABNORMALITY, CONSIDER INFERIOR ISCHEMIA [-0.1+ mV T-WAVE IN II/aVF] Compared to ECG 09/04/2022 17:27:42 Low QRS voltage now present T-wave abnormality now present Possible ischemia now present Myocardial infarct finding still present Electronically Signed On 09-05-2022 7:42:39 CDT by Chandrakant Méndez M.D. [id number]
[2022-09-04] MEDS: trazodone 100 mg Tablet 200 MG PO (20:49)
[2022-09-04] MEDS: atorvastatin 40 mg Tablet PO (20:49)
[2022-09-04] MEDS: metoprolol tartrate 25 mg Tablet 12.5 MG PO (20:49)
[2022-09-04] MEDS: lisinopril 5 mg Tablet PO (20:50)
[2022-09-04 21:48] LABS: Troponin 5 6HR 164.5 ng/L (0-15); Troponin 5 6HR Delta 24.5 ng/L (0-12)
--- NOTE | 2022-09-04 22:20 | PC.NURSE ---
Referred pt to physician for review of elevated troponins and delta, as well as bradycardia. Pt to remain on telemetry, con't to monitor for s/sx of CP, SOB.
[2022-09-05] VITALS (11 sets, daily range): BP systolic 94–119; BP diastolic 59–82; PULSE 56–73; RESP 16–19; TEMP 36.4–36.7; O2SAT 95–98
[2022-09-05] MEDS: CLONazepam 0.5 mg Tablet PO ×3 (00:59→21:09)
[2022-09-05] MEDS: ipratropium-albuterol 3 mL Neb INHALATION ×3 (01:09→20:39)
[2022-09-05] MEDS: enoxaparin 80 mg/0.8 mL Syringe SUBCUT ×2 (06:19→18:31)
--- NOTE | 2022-09-05 06:27 | ECG_ITS ---
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 Interpretive Statements NAME OF STUDY: LEXISCAN SESTAMIBI STRESS TEST INDICATION: Cardiomyopathy, PROCEDURE: At the baseline, the EKG sinus rhythm with diffuse T wave inversions and half to [address] elevations .The baseline heart was 60 bpm with a blood pressue of 115/71 mm of Hg Lexiscan was infused over a period of 20 seconds. A total of 0.4 milligrams of Lexiscan was infused. The stress phase was continued for a total of 5 minutes. Heart rate at the end of the stress phase was 77 bpm with a blood pressure 108/64 mm of Hg. The EKG at the peak infusion revealed no significant changes. Sestamibi was injected 20 seconds after the Lexiscan infusion. Heart rate at the end of the recovery phase was 73 bpm with a blood pressure of 103/59 mm of Hg. occasional PVCs were noted during the recovery phase CONCLUSION: 1. No significant EKG changes with the LexiScan infusion 2. LexiScan induced occasional asymptomatic PVCs during the recovery phase 3. Normal blood pressure and heart rate response 4. Sestamibi/sestamibi perfusion scan pending; see separate report. Electronically Signed On 09-07-2022 14:16:21 CDT by Melody Jacobo M.D. [id number]
[2022-09-05] MEDS: regadenoson 0.4 Mg/5 ml Syringe IVP (07:19)
[2022-09-05] MEDS: lisinopril 5 mg Tablet PO (10:09)
[2022-09-05] MEDS: ARIPiprazole 10 mg Tablet PO (10:09)
[2022-09-05] MEDS: aspirin 81 mg EC Tablet PO (10:09)
[2022-09-05] MEDS: nicotine 21 mg Patch 1 PATCH TRANSDERMA (10:09)
[2022-09-05] MEDS: metoprolol tartrate 25 mg Tablet 12.5 MG PO ×2 (10:12→21:10)
--- NOTE | 2022-09-05 13:32 | PC.OT ---
OT TREATMENT HELD TODAY DUE TO ELEVATED TROPONIN LEVELS.
[2022-09-05] MEDS: diphenhydrAMINE 25 mg Capsule PO ×2 (15:12→21:09)
[2022-09-05] MEDS: predniSONE 20 mg Tablet 50 MG PO ×2 (15:12→21:09)
--- NOTE | 2022-09-05 17:20 | P.PN_ITS ---
Subjective Subjective: Overnight patient had evidence of increasing troponins, Lovenox had been added at full dose. This morning he is chest pain-free. He did undergo a stress test earlier today after cardiology consultation. Stress test shows signs of reversible ischemia. Patient is now being planned for an angiogr am. He is agreeable to proceed. Denies any current chest pain dyspnea or palpitations. His speech appears to be more clear today. Medications: Reviewed: Yes Vitals/I&O/Wt Last Vital Signs Temp 98.1 F 09/05/22 11:35 Pulse 65 09/05/22 14:00 Resp 16 09/05/22 13:27 BP 119/82 09/05/22 11:35 Pulse Ox 97 09/05/22 13:27 O2 Del Method 09/05/22 13:27 09/05/22 09/05/22 09/05/22 06:59 14:59 22:59 Intake Total 1200 / 3492 480 / 480 Output Total 1000 / 1600 Balance 200 / 1892 480 / 480 Physical Exam Narrative: General: No acute distress, AO x3 HEENT: PERRLA, pupils bilaterally equal and reactive, pallors not present Chest: Normal vesicular breath sounds, no added sounds, equal good air entry bilaterally CVS: S1-S2 regular, no murmurs, no tachycardia, no gallops, no rubs Abdomen: Soft, nontender, no organomegaly, bowel sounds present Neuro: No focal deficits, no facial deformity, AO x3, power 5/5 in all limbs Data 09/04/22 05:05 09/04/22 05:05 A&P Assessment and plan (1) Cardiomyopathy: EF of 30 to 35% with regional wall motion abnormalities. Likely ischemic cardiomyopathy from an NSTEMI. Elevated troponins, ST depression related to NSTEMI. Patient denies any current chest pain. Stress test this morning showed moderate to large area of reduced tracer uptake in the apical segments, mid anterior anteroseptal and inferoseptal segments with significant reversibility. Patient is planned for a cardiac cath tomorrow, reported past history of contrast allergy, will need premedication. Continue ASA 81mg daily, Lovenox 1 mg/kg every 12 hours, lipitor 40mg daily (2) CVA (cerebral vascular accident): CT head without acute events His symptoms are that of slurred speech. No other focal motor deficits. Slurred speech is also starting to clear up. Overall clinical presentation more consistent with a TIA. carotid artery US with 50 to 60% left ICA stenosis, will refer for outpatient evaluation with vascular surgery. Telemetry without A-fib but shows multiple VPCs and bigeminy rhythm. Echocardiogram shows severely reduced EF of 30 to 35% with regional wall motion abnormalities. PT/OT/Speech eval appreciated Continue ASA 81, atorvastatin 40mg daily Within normal limit lipid panel, Hba1c (3) Ventricular bigeminy: Related to cardiomyopathy (4) Hypomagnesemia: Replete with IV magnesium (5) VPC (ventricular premature complex): (6) Nicotine dependence: nicotine patch added (7) TIANA (generalized anxiety disorder): resume home dose of klonopin 0.5mg BID Attestations Medical Necessity Statement*: NSTEMI, plan for cardiac cath tomorrow Coding Level of Care Code Acute Code for Chg Fwd Diagnoses Cardiomyopathy I42.9 CVA (cerebral vascular accident) I63.9 Ventricular bigeminy I49.8 Hypomagnesemia E83.42 VPC (ventricular premature complex) I49.3 Nicotine dependence F17.200 TIANA (generalized anxiety disorder) F41.1
[2022-09-05] MEDS: famotidine 20 mg Tablet PO (17:30)
--- NOTE | 2022-09-05 18:37 | NMCV_ITS ---
NM jessee perf SPECT r/s* [id number] Michael Miranda Age: 66 Gender: M : 1955 Exam Date: 09/05/2022 06:26 Ordering Phys: Melody Jacobo MD ([email or web address]) Technologist: RADHA Malhotra Exam Location: [facility] Indications: CHEST PAIN STRESS TEST [facility] IMAGE PROTOCOL Rest/Stress 1 Lexiscan Day Radiopharmaceutical Dose (mCi) Administration Site Administered by Rest: Tc-99m 10.7 IV RADHA Yepez Sestamibi Stress:Tc-99m 32.6 IV RADHA Yepez Sestamibi Rest: 05-Sep-2022 60 Discovery 630 Stress: 05-Sep-2022 30 Discovery 630 0.4mg Lexiscan. Images obtained in supine and prone position. SPECT RESULTS Technical Quality: Excellent Raw Data Analysis: Normal Image Corrections: No attenuation or motion correction applied Summed Stress Score: 18 Summed Rest Score: 10 Summed Difference Score: 8 PERFUSION FINDINGS Moderate to severely decreased tracer uptake in all the apical segments including the LV apex. Minimal to moderately decreased tracer uptake in the mid anterior, anteroseptal and inferoseptal segments. Some reversibility was noted in all the segments. FUNCTIONAL RESULTS (calculated via Gated SPECT) Stress Image LV EF (%): 53 Stress EDV (mL):125 TID: 1.01 Stress ESV (mL):59 FUNCTIONAL FINDINGS: Segmental wall motion analysis revealed moderate diffuse hypokinesia of the LV apex. Moderate diffuse hypokinesia of the septum. IMPRESSIONS 1. Myocardial perfusion imaging revealing moderate to large area of moderate to severely decreased tracer uptake in all the apical segments, mid anterior, anteroseptal and inferoseptal segments with significant reversibility, suggesting myocardial scarring with ischemia in the distribution of all the 3 coronary arteries. The total ischemic burden was 35% of the total myocardium. 2. LV ejection fraction of 53%. 3. LV wall motion analysis revealed diffuse hypokinesia of the LV apex and septum 4. Mildly dilated LV cavity with end-systolic volume of 59 ml. No similar previous studies are available for comparison. Dr Melody Jacobo MD [facility] (Electronically Signed) Final Date: 05 September 2022 10:32 S
--- NOTE | 2022-09-05 20:50 | P.PN_ITS ---
Subjective Subjective: Abdomen Myocardial perfusion imaging today. He was found to have a moderate area of reversible defect in the distribution of all the 3 coronary arteries, involving 35% of the total myocardium. Patient is remaining pain- free. No fever, chills or cough. No other specific complaints. Medications: Medication Review Details: Current Medications Acetaminophen (Acetaminophen 325 Mg Tablet) 650 mg PO Q6H PRN PRN Reason: Mild/Mod Pain Or Temp >/= 101 Albuterol/Ipratropium (Ipratropium-Albuterol 3 Ml Neb) 3 ml INHALATION Q6H.RESP SUDHAKAR Last Admin: 09/05/22 20:39 Dose: 3 ml Aminophylline (Aminophylline 25 Mg/Ml Sdv 10 Ml) 25 mg IVP Q2M PRN PRN Reason: see dose instructions Stop: 09/06/22 06:27 Aripiprazole (Aripiprazole 10 Mg Tablet) 10 mg PO DAILY [facility] Last Admin: 09/05/22 10:09 Dose: 10 mg Aspirin (Aspirin 81 Mg Ec Tablet) 81 mg PO DAILY [facility] Last Admin: 09/05/22 10:09 Dose: 81 mg Aspirin (Aspirin 325 Mg Tablet) 325 mg PO ONCE ONE Stop: 09/05/22 20:50 Atorvastatin Calcium (Atorvastatin 40 Mg Tablet) 40 mg PO BEDTIME SUDHAKAR Last Admin: 09/04/22 20:49 Dose: 40 mg Clonazepam (Clonazepam 0.5 Mg Tablet) 0.5 mg PO BID PRN PRN Reason: anxiety Last Admin: 09/05/22 10:12 Dose: 0.5 mg Diphenhydramine HCl (Diphenhydramine 25 Mg Capsule) 25 mg PO Q8H SUDHAKAR Stop: 09/06/22 10:00 Last Admin: 09/05/22 15:12 Dose: 25 mg Enoxaparin Sodium (Enoxaparin 80 Mg/0.8 Ml Syringe) 80 mg SUBCUT Q12H SUDHAKAR Last Admin: 09/05/22 18:31 Dose: 80 mg Famotidine (Famotidine 20 Mg Tablet) 20 mg PO BID [facility] Last Admin: 09/05/22 17:30 Dose: 20 mg Sodium Chloride (Sodium Chloride 0.9%) 1,000 mls @ 50 mls/hr IV .Q20H ONE Stop: 09/06/22 16:48 Lisinopril (Lisinopril 5 Mg Tablet) 5 mg PO DAILY [facility] Last Admin: 09/05/22 10:09 Dose: 5 mg Metoprolol Tartrate (Metoprolol Tartrate 25 Mg Tablet) 12.5 mg PO BID@0900,2100 [facility] Last Admin: 09/05/22 10:12 Dose: 12.5 mg Nicotine (Nicotine 21 Mg Patch) 1 patch TRANSDERMA DAILY [facility] Last Admin: 09/05/22 10:09 Dose: 1 patch Nitroglycerin (Nitroglycerin 0.4 Mg Sublingual Tablet) 0.4 mg SUBLINGUAL Q5M PRN PRN Reason: CHEST PAIN Stop: 09/06/22 06:27 Ondansetron HCl (Ondansetron 2 Mg/Ml Sdv 2 Ml) 4 mg IVP Q2M PRN PRN Reason: NAUSEA Prednisone (Prednisone 20 Mg Tablet) 50 mg PO Q6H [facility] Stop: 09/06/22 10:00 Last Admin: 09/05/22 15:12 Dose: 50 mg Spironolactone (Spironolactone 25 Mg Tablet) 25 mg PO DAILY [facility] Trazodone HCl (Trazodone 100 Mg Tablet) 200 mg PO BEDTIME [facility] Last Admin: 09/04/22 20:49 Dose: 200 mg Vitals/I&O/Wt Last Vital Signs Temp 98.1 F 09/05/22 11:35 Pulse 62 09/05/22 20:40 Resp 16 09/05/22 20:40 BP 119/82 09/05/22 11:35 Pulse Ox 95 09/05/22 20:40 O2 Del Method 09/05/22 20:40 09/05/22 09/05/22 09/05/22 06:59 14:59 22:59 Intake Total 1200 / 3492 480 / 480 Output Total 1000 / 1600 240 / 240 Balance 200 / 1892 480 / 480 -240 / 240 Physical Exam Narrative: GENERAL: The patient is alert and oriented times three. Not in any acute distress. Has some generalized wasting HEENT: No significant pallor, icterus or lymphadenopathy.Oral cavity: There are no mucous membrane lesions. NECK: Trachea appears to be central. No masses noted. No JVD or thyromegaly a ppreciated. RESPIRATORY: Chest is symmetrical. No intercostals muscle retraction or any accessory muscle activation. There is no chest wall tenderness. Breath sounds are heard bilaterally. No rales or rhonchi heard. No evidence of any consolidation. BREASTS: Deferred. HEART: The heart sounds are normal. No S3 or S4. Short systolic murmur in the left sternal border. No diastolic murmurs.. No pericardial rub ABDOMEN: No vessel pulsations or distention. No tenderness. No organomegaly appreciated. Bowel sounds are normally heard. : Deferred. RECTAL: Deferred. LYMPHATIC: No lymphadenopathy noted in the neck. EXTREMITIES: No edema or cyanosis. No clubbing. MUSCULOSKELETAL: No acute joint deformities or swelling SKIN: There are no significant rashes or ecchymosis NEUROPSYCHIATRIC: The patient is alert and oriented x3. Appears to be in a good mood. No tremors or rigidity noted. Data 09/04/22 05:05 09/04/22 05:05 Other Labs: Laboratory Last Values WBC 6.9 10^3/uL (4.0-10.0) 09/04/22 05:05 RBC 3.77 10^6/uL (4.1-5.3) L 09/04/22 05:05 Hgb 12.5 g/dL (11.7-16.6) 09/04/22 05:05 Hct 36.6 % (42.0-52.0) L 09/04/22 05:05 MCV 97.1 fl (80-94) H 09/04/22 05:05 MCH 33.2 pg (28.0-34.0) 09/04/22 05:05 MCHC 34.2 g/dL (30.0-36.0) 09/04/22 05:05 RDW 12.5 % (12.1-15.1) 09/04/22 05:05 Plt Count 261 10^3/cmm (130-400) 09/04/22 05:05 MPV 9.9 fL (7.4-10.4) 09/04/22 05:05 Neut % (Auto) 61.5 % 09/04/22 05:05 Lymph % (Auto) 22.8 % 09/04/22 05:05 Hayes % (Auto) 9.2 % 09/04/22 05:05 Eos % (Auto) 4.9 % 09/04/22 05:05 Baso % (Auto) 1.3 % 09/04/22 05:05 Neut # (Auto) 4.26 10^3/uL (1.8-7.7) 09/04/22 05:05 Lymph # (Auto) 1.6 10^3/uL (0.8-4.8) 09/04/22 05:05 Hayes # (Auto) 0.6 10^3/uL (0.2-0.9) 09/04/22 05:05 Eos # (Auto) 0.3 10^3/uL (0.0-0.8) 09/04/22 05:05 Baso # (Auto) 0.1 10^3/uL (0.0-0.1) 09/04/22 05:05 Nucleated RBC % (auto) 0 % 09/04/22 05:05 Nucleated RBCs # 0.0 /100WBC 09/04/22 05:05 PT 14.30 SECONDS (12.1-14.9) 09/03/22 11:21 INR 1.07 (0.8-1.2) 09/03/22 11:21 APTT 28.2 SECONDS (23.9-36.7) 09/03/22 11:21 Sodium 138 mmol/L (136-145) 09/04/22 05:05 Potassium 3.8 mmol/L (3.5-5.1) 09/04/22 05:05 Chloride 104 mmol/L (98-107) 09/04/22 05:05 Carbon Dioxide 25 mmol/L (22-29) 09/04/22 05:05 Anion Gap 12.8 (5-19) 09/04/22 05:05 BUN 6 mg/dL (8-23) L 09/04/22 05:05 Creatinine 0.9 mg/dL (0.7-1.2) 09/04/22 05:05 GFR Calculation 85.0 mL/min (90-130) L 09/04/22 05:05 Glucose 91 mg/dL (65-115) 09/04/22 05:05 Estimat Average Glucose 103 09/04/22 05:05 Hemoglobin A1c 5.2 % (4.0-6.0) 09/04/22 05:05 Calculated Osmolality 283 mOsm/kg (285-295) L 09/04/22 05:05 Calcium 8.3 mg/dL (8.5-10.5) L 09/04/22 05:05 Magnesium 1.6 mg/dL (1.7-2.3) L 09/04/22 05:05 Total Bilirubin 0.4 mg/dL (0.15-1.2) 09/04/22 05:05 AST 19 U/L (0-40) 09/04/22 05:05 ALT 8 U/L (0-41) 09/04/22 05:05 Alkaline Phosphatase 81 U/L (40-130) 09/04/22 05:05 Troponin T Baseline 140 ng/L (0-15) H* 09/04/22 15:45 Troponin T 120 Minute 147.4 ng/L (0-15) H 09/04/22 18:07 Delta Troponin T 7.4 ABS# (0-10) 09/04/22 18:07 Troponin T Hi Sens 6Hr 164.5 ng/L (0-15) H 09/04/22 21:11 Troponin T Hi Sens 6Hr Delta 24.5 ng/L (0-12) H* 09/04/22 21:11 Total Protein 5.2 g/dL (6.6-8.7) L 09/04/22 05:05 Albumin 3.1 g/dL (3.5-5.2) L 09/04/22 05:05 Globulin 2.1 g/dL (1.3-4.6) 09/04/22 05:05 Triglycerides 67 mg/dL (0-150) 09/04/22 05:05 Cholesterol 117 mg/dL (0-200) 09/04/22 05:05 LDL Cholesterol, Calc 68 mg/dL (50-129) 09/04/22 05:05 HDL Cholesterol 36 mg/dL (60-100) L 09/04/22 05:05 LDL/HDL Ratio 1.89 RATIO (0.00-3.22) 09/04/22 05:05 Cholesterol/HDL Ratio 3.25 mg/dL (1.0-5.00) 09/04/22 05:05 Urine Color Yellow (Yellow) 09/03/22 12:31 Urine Appearance Clear (CLEAR) 09/03/22 12:31 Urine pH 6.5 (5-7) 09/03/22 12:31 Ur Specific [place] 1.005 (1.005-1.030) 09/03/22 12:31 Urine Protein Neg (Negative) 09/03/22 12:31 Urine Glucose (UA) Norm (Normal) 09/03/22 12:31 Urine Ketones 1+ (Negative) H 09/03/22 12:31 Urine Blood Neg (Negative) 09/03/22 12:31 Urine Nitrate Negative (Negative) 09/03/22 12:31 Urine Bilirubin Neg (Negative) 09/03/22 12:31 Urine Urobilinogen 4 mg/dL (Negative) H 09/03/22 12:31 Ur Leukocyte Esterase Negative (Negative) 09/03/22 12:31 Urine Opiates Screen Negative ng/mL (Negative) 09/03/22 12:31 Ur Barbiturates Screen Negative ng/mL (Negative) 09/03/22 12:31 Ur Phencyclidine Scrn Negative ng/mL (Negative) 09/03/22 12:31 Ur Amphetamines Screen Negative ng/mL (Negative) 09/03/22 12:31 U Benzodiazepines Scrn Negative ng/mL (Negative) 09/03/22 12:31 Urine Cocaine Screen Negative ng/mL (Negative) 09/03/22 12:31 U Marijuana (THC) Screen Positive ng/mL (Negative) H 09/03/22 12:31 Other data: MPI from today ?1.? Myocardial perfusion imaging revealing moderate to large area of moderate ?to severely decreased tracer uptake in all the apical segments, mid anterior, ?anteroseptal and inferoseptal segments with significant reversibility, ?suggesting myocardial scarring with ischemia in the distribution of all the 3 ?coronary arteries.? The total ischemic burden was 35% of the total myocardium. ?2.? LV ejection fraction of 53%. ?3.? LV wall motion analysis revealed diffuse hypokinesia of the LV apex and ?septum ?4.? Mildly dilated LV cavity with end-systolic volume of 59? ml. ?No similar previous studies are available for comparison. A&P Assessment and plan (1) Non-ST elevation myocardial infarction (NSTEMI) of indeterminate age: Patient was found to have elevated troponin T with a positive delta at 6 hours. The elevated troponin T along with the EKG may sinus tach non-ST elevation myocardial infarction. Patient may be continued on the current treatment of subcu Lovenox, beta-isaac, aspirin and statin (2) Cardiomyopathy: The Myocardial perfusion imaging was reviewed. Patient was found to have a moderate area of ischemia in the distribution of all the 3 coronary arteries. In view of the patient's LV dysfunction and abnormal Myocardial perfusion imaging, he is at high risk for recurrent coronary event. For further evaluation of his coronary status, cardiac catheterization would be appropriate. This was discussed the patient and his daughter in detail. The risk and benefits were discussed. The risk of bleeding, hematoma, vascular injury, myocardial infarction, myocardial perforation, malignant cardiac arrhythmias ,CVA, renal failure and other concomitant complications were explained in detail. Patient and the daughter understood this well and consented to proceed. We may go ahead and do schedule the procedure as early as possible. He has a history of some allergy. For this reason, we may premedicate him. Patient apparently had urticarial rashes with the seafood. Possibility of him developing dye reaction even after pretreatment also was discussed. These discussions were understood well. (3) HTN (hypertension): Patient is currently normotensive. May continue on the current medications. (4) Abnormal EKG: He EKG changes are suggestive of extensive anterolateral and inferior wall ischemia. (5) VPC (ventricular premature complex): Currently asymptomatic. (6) CVA (cerebral vascular accident): His neurological symptoms have improved significantly. Currently has no focal motor deficits. Possibility of recurrence of CVA with the cardiac elevation also was discussed. Patient and the family understood this well. Plan Based on the angiogram findings, further recommendations will be made. The plan was also discussed with Dr Bernard-concurred with the plan Attestations Medical Necessity Statement*: Patient requires continued hospital stay for close monitoring and further management Coding Level of Care Code 86899 Diagnoses Non-ST elevation myocardial infarction (NSTEMI) of indeterminate age Cardiomyopathy I42.9 HTN (hypertension) I10 Abnormal EKG R94.31 VPC (ventricular premature complex) I49.3 CVA (cerebral vascular accident) I63.9
[2022-09-05] MEDS: aspirin 325 mg Tablet PO (21:09)
[2022-09-05] MEDS: atorvastatin 40 mg Tablet PO (21:10)
[2022-09-05] MEDS: sodium chloride 0.9% 1,000 ML 50 ML IV (21:10)
[2022-09-05] MEDS: trazodone 100 mg Tablet 200 MG PO (21:11)
[2022-09-06] VITALS (16 sets, daily range): BP systolic 90–155; BP diastolic 52–93; PULSE 58–72; RESP 16–22; TEMP 36.2–36.8; O2SAT 95–100
[2022-09-06] MEDS: predniSONE 20 mg Tablet 50 MG PO (02:21)
[2022-09-06] MEDS: diphenhydrAMINE 25 mg Capsule PO (05:38)
--- NOTE | 2022-09-06 06:26 | XACV_ITS ---
Exam Room: [facility] Ht: 168 cm Wt: 77 kg BSA: 1.91 m2 Gender: Male : 1955 Any Known Allergies: No known allergies Exam Priority: Routine Procedure(s): Procedure Description: Diagnostic procedure Procedure Description: Left Heart Catheterization Procedure Description: Left ventriculography Procedure Description: Coronary Angiography Donnell DODD; Diagnostic Cath Status: Urgent Diagnostic Findings * The left main is a medium caliber short vessel with no significant stenotic lesion. * The left anterior descending artery is a medium caliber vessel which was found to have moderate diffuse calcification in the proximal to mid segment. Right after the second septal green end worker, the artery appears to be totally occluded. There is a large diagonal branch comes off the artery just before the occlusion and was found to have mild diffuse disease. The proximal and mid LAD was found to have diffused rounded 20 to 30% irregular narrowing. Grade 2 left to left and right to left collaterals were noted filling of the distal LAD. This appears to be a wraparound vessel. * The left left circumflex artery artery is a medium caliber nondominant vessel which also was found to have mild diffuse disease with moderate calcification in the proximal segment. No significant stenotic lesions. * The right coronary artery is a relatively large caliber dominant vessel with mild to moderate diffuse irregular narrowing in the proximal and mid segment. The lesions were ranging anywhere from 30 to 50%. The PDA and the PLV branches also were found to have mild diffuse disease. Zgjg-ew-jqwiz collaterals were noted filling of the distal LAD. PCI Status: Urgent Interventional Findings * Procedure detail:We engaged left main artery with XB 3.0 guide catheter. IV heparin was administered to maintain anticoagulation. 0.014 run-through guidewire was used to try to attempt crossing chronic total occlusion of mid LAD. It was unsuccessful. We escalated the wires to commercial helicopter pilot 50 and then to Fielder XT. Wires were going into dissection plane and could not be redirected into the true lumen distally. At this time we aborted further attempts at crossing the totally occluded segment. Medical management was decided. Guide wire and catheter were removed. Patient left the car barn laborer in a stable condition. . Conclusions 1. 66-year-old white male is admitted to hospital with strokelike symptoms. The echocardiogram revealed severe diffuse hypokinesia of the LV apex. Ejection fraction was around 30 to 35%. He also was found to have elevated troponin T with a significant delta at 6 hours. The Myocardial perfusion imaging revealed a moderate area of ischemia involving the apical region. In view of the patient's LV dysfunction and the abnormal perfusion scan, in order to further evaluate the coronary status, a cardiac catheterization was recommended. Patient underwent left heart catheterization with left and right coronary angiogram and LV angiogram today. The findings are as follows. 2. Subtotal occlusion of the mid LAD with a grade 2 left to left and right left collaterals. Moderate diffuse calcification in the proximal to mid left anterior descending artery. Mild to moderate diffuse disease in the other vessels. LV ejection fraction of 40%. Diffuse hypokinesia of the anteroapical region. LVEDP 21 mmHg. Based on his angiogram findings, it was thought to be appropriate to consider PCI of the LAD lesion. The angiogram was reviewed and discussed with Dr. Méndez. Dr. Méndez concurred with this plan. Dr. Méndez took over further management this patient at this point. 3. Unsuccessful revascularization attempt for HEALTH CARE COACH as wires could not cross the occluded segment. Recommendations * Aggressive medical therapy. If develops any symptoms in future, CABG vs HEALTH CARE COACH reattempt can be considered. * Dual antiplatelet therapy with aspirin and Plavix. * Guideline directed heart failure therapy. * Outpatient cardiology follow up in 4 weeks. Interventional RX Recommendation: medical therapy and/or counseling Diagnostic RX Recommendation: PCI w/o planned CABG Anticoagulation: Heparin Ventriculography Ejection Fraction: 40.0 % LV EDP: 21 mmHg Left Ventriculography Findings: * The LV gram was performed in the MORA projection. The LV cavity appears to be mildly dilated.The LV gram was of suboptimal quality. Moderate diffuse hypokinesia of the anteroapical segments are noted. Overall ejection fraction around 40%. No significant mitral valve prolapse or mitral regurgitation. The LVEDP was 21 mmHg. Pressures Phase:Rest AO : 105 / 56 ( 76 ) @ 8:36:00 AM 105 / 56 ( 76 ) @ 8:36:00 AM 104 / 59 ( 74 ) @ 8:49:00 AM LV : 107 / 9 / 19 @ 8:35:00 AM 104 / 10 / 21 @ 8:36:00 AM 104 / 11 / 21 @ 8:36:00 AM Valves Phase:DefaultPhase AV : 0.0 @ 8:30:02 AM 0.0 @ 8:30:02 AM AV Mean Gradient: 0.0 @ 8:30:02 AM 0.0 @ 8:30:02 AM Clinical Evaluation EBL: 5mL-10mL Procedural Details Procedure Consent Obtained. Admit Source: In Patient. Pre-Procedure Time Out. Identified patient by full name and date of as verbalized by the patient/guarantor. Does the consent match the physician's order: Yes. Accurate & Complete Informed Consent: Yes. Inpatient/Outpatient History & Physical on Chart: Yes. If H&P is completed, is and addenduem needed: No; If yes, is the addendum complete: N/A. Visualize and Verify Site with Patient/Guarantor: N/A. Relevant Radiology Images available: N/A. The risks, benefits, and alternatives of sedation and/or procedure were discussed by physician. The patient agrees to continue. Procedure started. [facility] Clinical Fraility Score: 4: Vulnerable. Childcare Center Administrator Indications: Worsening Angina. Chest Pain Symptom Assessment: Typical Angina Symptoms. Correct patient, site and procedure confirmed by cath team. Current diagnosis: Nstemi, abnormal stress test. PERRLA. Strong, equal hand spindraw operator bilaterally. Lungs clear x 5 lobes. IV Site on Arrival: 20 gauge in the right forearm. IV Fluids: 0.9% NaCl at KVO. 500 mL infused prior to car barn laborer. Pre Procedural Pulses: bilateral radial was 2+. Pre Procedural Pulses: bilateral dorsalis pedis was 3+. Pre Procedural Pulses: bilateral posterior tibial was 2+. Oxygen started at 2liters/min via nasal canula. right radial was prepped with chloroprep then draped in the usual sterile fashion. right groin was prepped with chloroprep then draped in the usual sterile fashion. Physician notified. Baseline sample Acquired. HR: 60 BPM. Physician arrived. Physician scrubbed in. Immediate Pre-Procedure Time Out. Correct Patient: Yes; Correct Procedure: Yes; Correct Site: Yes; Correct Patient Position: Yes; Correct Supplies: Yes; Dried Flammable Prep: Yes; Blood Products Available: N/A;. Lidocaine 1% infiltrated to the right radial. Arterial access obtained. A 5 guamanian Lucas catheter in over the exchange wire. Multiple views taken of left coronary artery. NS bolus discontinued. Rate now infusing at 75ml/hr. Catheter removed over the exchange wire. A 5 guamanian JR4 catheter in over wire. Multiple views taken of right coronary artery. Catheter removed over the exchange wire. A 5 guamanian Angled Pig catheter in over wire. Pigtail advanced to left ventricle. Wire out. EDP Sample taken: LV 107/9,19; HR: 52 BPM; SpO2: 94%. LV gram performed in MORA @ 10 mL/second for a total of 30 mL. EDP Sample taken: LV 104/10,21; HR: 51 BPM; SpO2: 93%. Pullback taken: LV 104/11,21; AO 105/56(76); Mean: 0mmHg, Peak to Peak: 0mmHg, SEP: 5sec/min; HR: 51 BPM; SpO2: 93%. Catheter removed over the exchange wire. Dr. Méndez arrived to review Cine films. Physician scrubbed out. Physician review of cine films. Inventory: Co-commercial helicopter pilot, Endoflator. Patient's family updated. Dr. Méndez scrubbed in to perform intervention. PCI Indication: NSTE. 6 guamanian XB 3 guide catheter was inserted over the wire. Runthrough guidewire was advanced through the guide catheter to lesion in the mid LAD. Human Resources Operations Manager 50 guidewire was advanced through the guide catheter to lesion in the mid LAD. Unable to cross lesion with Human Resources Operations Manager 50. Human Resources Operations Manager 50 removed. Asahi Fielder XT guidewire was advanced through the guide catheter to lesion in the mid LAD. Unable to cross lesion in mid lad. Asahi fielder XT removed. Unable to cross. Runthrough wire out. Human Resources Operations Manager 50 advanced to lesion in mid LAD. OTW Sprinter balloon advanced over commercial helicopter pilot 50 and directed to lesion in the mid LAD. Human Resources Operations Manager 50 guidewire out. Runthrough wire in through OTW balloon. Unable to cross, Balloon and wire out. Angiography performed. Guide catheter over over exchange wire. A TR Band was successful obtaining hemostatsis at the Right Radial artery insertion site. Post Procedure: Pulses reassessed and unchanged. PERRLA. Strong, equal hand spindraw operator bilaterally. No VTE prophylaxis required. Medication's Wasted: Nitro = 49.6 mg, Fentanyl 50mcg, verapamil 5mg , Lidocaine 2ml, Heparin 1000 unit. Post-op diagnosis: Totally occluded mid LAD, status post unsuccessful revascularization attempt. Complications: None. Estimated blood loss: 5mL-10mL. Responsiveness - Normal response to verbal stimuli; alert and oriented, PERRLA. Airway - Unaffected, no intervention required; spontaneous ventilation. Circulation: W/N/L, pulses unchanged. Nausea/Vomiting: No. Total IV fluids: 190 mL. Procedure completed. Patient transferred by wheelchair to CPRU. Vital chart was stopped. Access Site Site: Right Radial artery Sheath Size: 6 Fr Hemostasis Method: TR Band Hemostasis Success: Successful Procedure Medications Start: 7:14 AM Stop: 7:14 AM Medication: Versed Amount: 1 mg Route: I.V. Start: 7:14 AM Stop: 7:14 AM Medication: Fentanyl Amount: 50 mcg Route: I.V. Start: 7:17 AM Stop: 7:17 AM Medication: Solu-Medrol (methylprednisolone) Amount: 125 mg Route: I.V. Start: 7:19 AM Stop: 7:19 AM Medication: Versed Amount: 1 mg Route: I.V. Start: 7:19 AM Stop: 7:19 AM Medication: Nitrogylcerin Amount: 200 mcg Route: I.A. Start: 7:20 AM Stop: 7:20 AM Medication: 0.9% Saline Amount: 250 ml Route: I.V. bolus Start: 7:29 AM Stop: 7:29 AM Medication: Heparin Amount: 5000 units Route: I.V. Start: 7:47 AM Stop: 7:47 AM Medication: Nitrogylcerin Amount: 200 mcg Route: I.A. Start: 7:48 AM Stop: 7:48 AM Medication: Heparin Amount: 3000 units Route: I.V. Start: 7:59 AM Stop: 7:59 AM Medication: Heparin Amount: 1000 units Route: I.V. Start: 8:08 AM Stop: 8:08 AM Medication: Heparin Amount: 1000 units Route: I.V. I, the attending physician, have reviewed and verified all procedure medications. Yes, all medications given per verbal order History/Risk Factors Hypertension: Yes Dyslipidemia: No Peripheral Arterial Disease (PAD): No Myocardial Infarction (AR): No Obesity: No Renal Disease: No Prior Interventions PCI: No CABG: No Valve Surgery: No Report Signatures Interventional Workflow Finalized by Chandrakant Méndez MD on 09/11/2022 12:50 PM Diagnostic Workflow Finalized by Dr Melody Jacobo MD [facility] on 09/06/2022 04:07 PM
--- NOTE | 2022-09-06 07:09 | P.HPUD_ITS ---
Surgery/Procedure H&P Update DATE OF PROCEDURE: September 06, 2022 DATE H&P PERFORMED: 09/04/22 H&P UPDATE INFORMATION: I have reviewed H&P completed within last 30 days, I have examined patient prior to procedure and No changes to prior documentation PREOP DIAGNOSIS: ASHD PRIMARY INDICATION FOR PROCEDURE: NSTEMI/Cardiomyopathy/ abnormal stress test PLANNED PROCEDURE: [facility] with coronary angio and possible PCI PATIENT REASSESSED PRIOR TO SEDATION, WITH NO CHANGE NOTED: Yes PHYSICAL EXAM: alert, oriented x 3, clear to auscultation bilaterally and regular rate & rhythm AIRWAY EVAL/ANESTHESIA PLAN: normal airway, see other exam findings, ASA III, Monitored Anesthesia, Local Anesthesia, Risks, benefits & alternatives of sedation and/or procedure discussed and Patient agrees to continue as planned
--- NOTE | 2022-09-06 10:28 | PC.NURSE ---
Around 0845: Patient transferred to CPRU from dental laboratory technician post procedure. TR band to patients right wrist clean, dry, et intact. Pea-sized hematoma noted. No drainage. Vitals WDL. No c/o pain or discomfort. Will continue to monitor closely. Around 1000: Transfer orders received. TR band to patients right wrist clean, dry, et intact. No change to pea-sized hematoma. No drainage. Vitals WDL. No c/o pain or discomfort. Report given to CESAR Nash. Patient transferred from CPRU to CSU via wheelchair. All belongings sent with patients.
[2022-09-06] MEDS: nicotine 21 mg Patch 1 PATCH TRANSDERMA (11:45)
[2022-09-06] MEDS: ARIPiprazole 10 mg Tablet PO (11:46)
[2022-09-06] MEDS: ipratropium-albuterol 3 mL Neb INHALATION ×2 (13:34→21:08)
[2022-09-06] MEDS: CLONazepam 0.5 mg Tablet PO ×2 (14:23→22:24)
--- NOTE | 2022-09-06 15:08 | PM.PN ---
Subjective Subjective: Patient underwent a left heart catheterization with left and right coronary angiogram and LV angiogram today. He was found to have subtotal occlusion of the mid LAD with a grade 2 right to left and some left to left collaterals. Has only mild disease in the other vessels. PCI was attempted by Dr. Méndez. Unfortunately the lesions were a very heavily calcified. Medications: Medication Review Details: Current Medications Acetaminophen (Acetaminophen 325 Mg Tablet) 650 mg PO Q6H PRN PRN Reason: Mild/Mod Pain Or Temp >/= 101 Albuterol/Ipratropium (Ipratropium-Albuterol 3 Ml Neb) 3 ml INHALATION Q6H.RESP [facility] Last Admin: 09/06/22 13:34 Dose: 3 ml Aripiprazole (Aripiprazole 10 Mg Tablet) 10 mg PO DAILY [facility] Last Admin: 09/06/22 11:46 Dose: 10 mg Aspirin (Aspirin 81 Mg Ec Tablet) 81 mg PO DAILY [facility] Last Admin: 09/05/22 10:09 Dose: 81 mg Atorvastatin Calcium (Atorvastatin 40 Mg Tablet) 40 mg PO BEDTIME [facility] Last Admin: 09/05/22 21:10 Dose: 40 mg Clonazepam (Clonazepam 0.5 Mg Tablet) 0.5 mg PO BID PRN PRN Reason: anxiety Last Admin: 09/06/22 14:23 Dose: 0.5 mg Clopidogrel Bisulfate (Clopidogrel 75 Mg Tablet) 75 mg PO DAILY ONE Stop: 09/07/22 06:01 Famotidine (Famotidine 20 Mg Tablet) 20 mg PO BID [facility] Last Admin: 09/05/22 17:30 Dose: 20 mg Sodium Chloride (Sodium Chloride 0.9%) 1,000 mls @ 50 mls/hr IV .Q20H ONE Stop: 09/06/22 16:48 Last Admin: 09/05/22 21:10 Dose: 50 mls/hr Isosorbide Mononitrate (Isosorbide Mononitrate Er 30 Mg Tablet) 30 mg PO DAILY [facility] Losartan Potassium (Losartan 50 Mg Tablet) 25 mg PO DAILY [facility] Metoprolol Tartrate (Metoprolol Tartrate 25 Mg Tablet) 12.5 mg PO BID@0900,2100 [facility] Last Admin: 09/05/22 21:10 Dose: 12.5 mg Nicotine (Nicotine 21 Mg Patch) 1 patch TRANSDERMA DAILY [facility] Last Admin: 09/06/22 11:45 Dose: 1 patch Ondansetron HCl (Ondansetron 2 Mg/Ml Sdv 2 Ml) 4 mg IVP Q2M PRN PRN Reason: NAUSEA Spironolactone (Spironolactone 25 Mg Tablet) 25 mg PO DAILY [facility] Trazodone HCl (Trazodone 100 Mg Tablet) 200 mg PO BEDTIME [facility] Last Admin: 09/05/22 21:11 Dose: 200 mg Vitals/I&O/Wt Last Vital Signs Temp 97.4 F L 09/06/22 03:39 Pulse 63 09/06/22 13:37 Resp 16 09/06/22 13:37 BP 154/90 09/06/22 11:58 Pulse Ox 96 09/06/22 13:37 O2 Del Method 09/06/22 13:37 09/06/22 09/06/22 09/06/22 06:59 14:59 22:59 Intake Total 480 / 480 Balance 480 / 480 Physical Exam Narrative: GENERAL: The patient is alert and oriented times three. Not in any acute distress. Generalized emaciation is present HEENT: No significant pallor, icterus or lymphadenopathy.Oral cavity: There are no mucous membrane lesions. NECK: Trachea appears to be central. No masses noted. No JVD or thyromegaly appreciated. RESPIRATORY: Chest is symmetrical. No intercostals muscle retraction or any accessory muscle activation. There is no chest wall tenderness. Breath sounds are heard bilaterally. No rales or rhonchi heard. No evidence of any consolidation. BREASTS: Deferred. HEART: The heart sounds are normal. No S3 or S4. No significant murmurs. No pericardial rub ABDOMEN: No vessel pulsations or distention. No tenderness. No organomegaly appreciated. Bowel sounds are normally heard. : Deferred. RECTAL: Deferred. LYMPHATIC: No lymphadenopathy noted in the neck. EXTREMITIES: Right groin has no hematoma bleeding MUSCULOSKELETAL: No acute joint deformities or swelling SKIN: There are no significant rashes or ecchymosis NEUROPSYCHIATRIC: The patient is alert and oriented x3. Appears to be in a good mood. No tremors or rigidity noted. Data 09/04/22 05:05 09/04/22 05:05 Other Labs: Laboratory Last Values WBC 6.9 10^3/uL (4.0-10.0) 09/04/22 05:05 RBC 3.77 10^6/uL (4.1-5.3) L 09/04/22 05:05 Hgb 12.5 g/dL (11.7-16.6) 09/04/22 05:05 Hct 36.6 % (42.0-52.0) L 09/04/22 05:05 MCV 97.1 fl (80-94) H 09/04/22 05:05 MCH 33.2 pg (28.0-34.0) 09/04/22 05:05 MCHC 34.2 g/dL (30.0-36.0) 09/04/22 05:05 RDW 12.5 % (12.1-15.1) 09/04/22 05:05 Plt Count 261 10^3/cmm (130-400) 09/04/22 05:05 MPV 9.9 fL (7.4-10.4) 09/04/22 05:05 Neut % (Auto) 61.5 % 09/04/22 05:05 Lymph % (Auto) 22.8 % 09/04/22 05:05 [place] % (Auto) 9.2 % 09/04/22 05:05 Eos % (Auto) 4.9 % 09/04/22 05:05 Baso % (Auto) 1.3 % 09/04/22 05:05 Neut # (Auto) 4.26 10^3/uL (1.8-7.7) 09/04/22 05:05 Lymph # (Auto) 1.6 10^3/uL (0.8-4.8) 09/04/22 05:05 [place] # (Auto) 0.6 10^3/uL (0.2-0.9) 09/04/22 05:05 Eos # (Auto) 0.3 10^3/uL (0.0-0.8) 09/04/22 05:05 Baso # (Auto) 0.1 10^3/uL (0.0-0.1) 09/04/22 05:05 Nucleated RBC % (auto) 0 % 09/04/22 05:05 Nucleated RBCs # 0.0 /100WBC 09/04/22 05:05 PT 14.30 SECONDS (12.1-14.9) 09/03/22 11:21 INR 1.07 (0.8-1.2) 09/03/22 11:21 APTT 28.2 SECONDS (23.9-36.7) 09/03/22 11:21 Sodium 138 mmol/L (136-145) 09/04/22 05:05 Potassium 3.8 mmol/L (3.5-5.1) 09/04/22 05:05 Chloride 104 mmol/L (98-107) 09/04/22 05:05 Carbon Dioxide 25 mmol/L (22-29) 09/04/22 05:05 Anion Gap 12.8 (5-19) 09/04/22 05:05 BUN 6 mg/dL (8-23) L 09/04/22 05:05 Creatinine 0.9 mg/dL (0.7-1.2) 09/04/22 05:05 GFR Calculation 85.0 mL/min (90-130) L 09/04/22 05:05 Glucose 91 mg/dL (65-115) 09/04/22 05:05 Estimat Average Glucose 103 09/04/22 05:05 Hemoglobin A1c 5.2 % (4.0-6.0) 09/04/22 05:05 Calculated Osmolality 283 mOsm/kg (285-295) L 09/04/22 05:05 Calcium 8.3 mg/dL (8.5-10.5) L 09/04/22 05:05 Magnesium 1.6 mg/dL (1.7-2.3) L 09/04/22 05:05 Total Bilirubin 0.4 mg/dL (0.15-1.2) 09/04/22 05:05 AST 19 U/L (0-40) 09/04/22 05:05 ALT 8 U/L (0-41) 09/04/22 05:05 Alkaline Phosphatase 81 U/L (40-130) 09/04/22 05:05 Troponin T Baseline 140 ng/L (0-15) H* 09/04/22 15:45 Troponin T 120 Minute 147.4 ng/L (0-15) H 09/04/22 18:07 Delta Troponin T 7.4 ABS# (0-10) 09/04/22 18:07 Troponin T Hi Sens 6Hr 164.5 ng/L (0-15) H 09/04/22 21:11 Troponin T Hi Sens 6Hr Delta 24.5 ng/L (0-12) H* 09/04/22 21:11 Total Protein 5.2 g/dL (6.6-8.7) L 09/04/22 05:05 Albumin 3.1 g/dL (3.5-5.2) L 09/04/22 05:05 Globulin 2.1 g/dL (1.3-4.6) 09/04/22 05:05 Triglycerides 67 mg/dL (0-150) 09/04/22 05:05 Cholesterol 117 mg/dL (0-200) 09/04/22 05:05 LDL Cholesterol, Calc 68 mg/dL (50-129) 09/04/22 05:05 HDL Cholesterol 36 mg/dL (60-100) L 09/04/22 05:05 LDL/HDL Ratio 1.89 RATIO (0.00-3.22) 09/04/22 05:05 Cholesterol/HDL Ratio 3.25 mg/dL (1.0-5.00) 09/04/22 05:05 Urine Color Yellow (Yellow) 09/03/22 12:31 Urine Appearance Clear (CLEAR) 09/03/22 12:31 Urine pH 6.5 (5-7) 09/03/22 12:31 Ur Specific [place] 1.005 (1.005-1.030) 09/03/22 12:31 Urine Protein Neg (Negative) 09/03/22 12:31 Urine Glucose (UA) Norm (Normal) 09/03/22 12:31 Urine Ketones 1+ (Negative) H 09/03/22 12:31 Urine Blood Neg (Negative) 09/03/22 12:31 Urine Nitrate Negative (Negative) 09/03/22 12:31 Urine Bilirubin Neg (Negative) 09/03/22 12:31 Urine Urobilinogen 4 mg/dL (Negative) H 09/03/22 12:31 Ur Leukocyte Esterase Negative (Negative) 09/03/22 12:31 Urine Opiates Screen Negative ng/mL (Negative) 09/03/22 12:31 Ur Barbiturates Screen Negative ng/mL (Negative) 09/03/22 12:31 Ur Phencyclidine Scrn Negative ng/mL (Negative) 09/03/22 12:31 Ur Amphetamines Screen Negative ng/mL (Negative) 09/03/22 12:31 U Benzodiazepines Scrn Negative ng/mL (Negative) 09/03/22 12:31 Urine Cocaine Screen Negative ng/mL (Negative) 09/03/22 12:31 U Marijuana (THC) Screen Positive ng/mL (Negative) H 09/03/22 12:31 A&P Assessment and plan (1) Non-ST elevation myocardial infarction (NSTEMI) of indeterminate age: Patient s/p cardiac catheterization, revealing subtotal occlusion of the mid LAD. PCI was attempted but was unsuccessful. At this point, we may optimize the medical treatment. Patient may take the isosorbide mononitrate 30 mg p.o. daily. (2) Cardiomyopathy: Patient is on the spironolactone. As a bridge to worse Entresto, I may start him on losartan 25 mg p.o. daily. The blood pressure needs to be closely monitored. (3) HTN (hypertension): Patient is currently normotensive. May continue on the current medications. (4) Abnormal EKG: He EKG changes are suggestive of extensive anterolateral and inferior wall ischemia. (5) VPC (ventricular premature complex): Currently asymptomatic.May continue on the current medications. (6) CVA (cerebral vascular accident): The current management as per the primary attending. Plan Patient continues to improve with no new symptoms, he may be discharged home tomorrow. In the event of the patient developing any unusual chest pain, palpitations, SOB or any other new symptoms, advised to contact our office. I may see the patient back in the office in 6 months Appointment with the nurse practitioner at the [facility], in a week Attestations Medical Necessity Statement*: Patient requires continued hospital stay for close monitoring and further management Coding Level of Care Code 49355 Diagnoses Non-ST elevation myocardial infarction (NSTEMI) of indeterminate age Cardiomyopathy I42.9 HTN (hypertension) I10 Abnormal EKG R94.31 VPC (ventricular premature complex) I49.3 CVA (cerebral vascular accident) I63.9
[2022-09-06] MEDS: famotidine 20 mg Tablet PO (17:52)
--- NOTE | 2022-09-06 18:15 | P.PN_ITS ---
Subjective Subjective: patient udnerwent cardiac cath today, found to have subtotal occlusion of the LAD. Stents unable to be placed. Currently he is chest pain free, denies new complaints at this time Medications: Reviewed: Yes Medication Review Details: Current Medications Acetaminophen (Acetaminophen 325 Mg Tablet) 650 mg PO Q6H PRN PRN Reason: Mild/Mod Pain Or Temp >/= 101 Albuterol/Ipratropium (Ipratropium-Albuterol 3 Ml Neb) 3 ml INHALATION Q6H.RESP [facility] Last Admin: 09/06/22 13:34 Dose: 3 ml Aripiprazole (Aripiprazole 10 Mg Tablet) 10 mg PO DAILY [facility] Last Admin: 09/06/22 11:46 Dose: 10 mg Aspirin (Aspirin 81 Mg Ec Tablet) 81 mg PO DAILY [facility] Last Admin: 09/05/22 10:09 Dose: 81 mg Atorvastatin Calcium (Atorvastatin 40 Mg Tablet) 40 mg PO BEDTIME [facility] Last Admin: 09/05/22 21:10 Dose: 40 mg Clonazepam (Clonazepam 0.5 Mg Tablet) 0.5 mg PO BID PRN PRN Reason: anxiety Last Admin: 09/06/22 14:23 Dose: 0.5 mg Clopidogrel Bisulfate (Clopidogrel 75 Mg Tablet) 75 mg PO DAILY ONE Stop: 09/07/22 06:01 Famotidine (Famotidine 20 Mg Tablet) 20 mg PO BID [facility] Last Admin: 09/05/22 17:30 Dose: 20 mg Sodium Chloride (Sodium Chloride 0.9%) 1,000 mls @ 50 mls/hr IV .Q20H ONE Stop: 09/06/22 16:48 Last Admin: 09/05/22 21:10 Dose: 50 mls/hr Isosorbide Mononitrate (Isosorbide Mononitrate Er 30 Mg Tablet) 30 mg PO DAILY [facility] Losartan Potassium (Losartan 50 Mg Tablet) 25 mg PO DAILY [facility] Metoprolol Tartrate (Metoprolol Tartrate 25 Mg Tablet) 12.5 mg PO BID@0900,2100 [facility] Last Admin: 09/05/22 21:10 Dose: 12.5 mg Nicotine (Nicotine 21 Mg Patch) 1 patch TRANSDERMA DAILY [facility] Last Admin: 09/06/22 11:45 Dose: 1 patch Ondansetron HCl (Ondansetron 2 Mg/Ml Sdv 2 Ml) 4 mg IVP Q2M PRN PRN Reason: NAUSEA Spironolactone (Spironolactone 25 Mg Tablet) 25 mg PO DAILY [facility] Trazodone HCl (Trazodone 100 Mg Tablet) 200 mg PO BEDTIME [facility] Last Admin: 09/05/22 21:11 Dose: 200 mg Vitals/I&O/Wt Last Vital Signs Temp 97.4 F L 09/06/22 03:39 Pulse 63 09/06/22 13:37 Resp 16 09/06/22 13:37 BP 154/90 09/06/22 11:58 Pulse Ox 96 09/06/22 13:37 O2 Del Method 09/06/22 13:37 09/06/22 09/06/22 09/06/22 06:59 14:59 22:59 Intake Total 480 / 480 1000 / 1480 Output Total 250 / 250 Balance 480 / 480 750 / 1230 Physical Exam Narrative: General: No acute distress, AO x3 HEENT: PERRLA, pupils bilaterally equal and reactive, pallors not present Chest: Normal vesicular breath sounds, no added sounds, equal good air entry bilaterally CVS: S1-S2 regular, no murmurs, no tachycardia, no gallops, no rubs Abdomen: Soft, nontender, no organomegaly, bowel sounds present Neuro: No focal deficits, no facial deformity, AO x3, power 5/5 in all limbs Data 09/04/22 05:05 09/04/22 05:05 A&P Assessment and plan (1) Cardiomyopathy: EF of 30 to 35% with regional wall motion abnormalities. Likely ischemic cardiomyopathy from an NSTEMI. Elevated troponins, ST depression related to NSTEMI. Patient denies any current chest pain. Stress test this morning showed moderate to large area of reduced tracer uptake in the apical segments, mid anterior anteroseptal and inferoseptal segments with significant reversibility. Patient is planned for a cardiac cath tomorrow, reported past history of contrast allergy, will need premedication. Continue ASA 81mg daily, Lovenox 1 mg/kg every 12 hours, lipitor 40mg daily (2) CVA (cerebral vascular accident): CT head without acute events His symptoms are that of slurred speech. No other focal motor deficits. Slurred speech is also starting to clear up. Overall clinical presentation more consistent with a TIA. carotid artery US with 50 to 60% left ICA stenosis, will refer for outpatient evaluation with vascular surgery. Telemetry without A-fib but shows multiple VPCs and bigeminy rhythm. Echocardiogram shows severely reduced EF of 30 to 35% with regional wall motion abnormalities. PT/OT/Speech eval appreciated Continue ASA 81, atorvastatin 40mg daily Within normal limit lipid panel, Hba1c (3) Ventricular bigeminy: Related to cardiomyopathy (4) Hypomagnesemia: Replete with IV magnesium (5) VPC (ventricular premature complex): (6) Nicotine dependence: nicotine patch added (7) TIANA (generalized anxiety disorder): resume home dose of klonopin 0.5mg BID Plan Plan for today: found to have proximal LAd stenosis on cardiac cath, unable to be stented. Plan to continue medical managament. Currently chest pain free. Continue ASA, statin, added losartan and imdur. Attestations Medical Necessity Statement*: optimize medical management, s/p cardiac cath today, monitor over next 24 hrs, if remains chets pain free, plan for discharge in the upcoming 24 hrs Coding Level of Care Code Acute Code for [facility] Fwd Diagnoses Cardiomyopathy I42.9 CVA (cerebral vascular accident) I63.9 Ventricular bigeminy I49.8 Hypomagnesemia E83.42 VPC (ventricular premature complex) I49.3 Nicotine dependence F17.200 TIANA (generalized anxiety disorder) F41.1
[2022-09-06] MEDS: metoprolol tartrate 25 mg Tablet 12.5 MG PO (20:53)
[2022-09-06] MEDS: atorvastatin 40 mg Tablet PO (20:53)
[2022-09-06 21:00] LABS: Glucose Point of Care 180 mg/dL (70-110)
[2022-09-06] MEDS: trazodone 100 mg Tablet 200 MG PO (22:24)
[2022-09-07] VITALS (8 sets, daily range): BP systolic 108–153; BP diastolic 63–94; PULSE 57–80; RESP 16–19; TEMP 36.6–36.7; O2SAT 95–97
[2022-09-07] MEDS: clopidogrel 75 mg Tablet PO (05:13)
[2022-09-07 06:36] LABS: Glucose Point of Care 125 mg/dL (70-110)
--- NOTE | 2022-09-07 06:50 | P.PN_ITS ---
Subjective Subjective: Patient doing well. No chest pain. Vitals/I&O/Wt Last Vital Signs Temp 97.9 F 09/07/22 05:00 Pulse 57 L 09/07/22 06:00 Resp 19 H 09/07/22 05:00 BP 128/75 09/07/22 05:00 Pulse Ox 96 09/07/22 05:00 O2 Del Method 09/07/22 05:00 09/06/22 09/06/22 09/07/22 14:59 22:59 06:59 Intake Total 480 / 480 1720 / 2200 720 / 2920 Output Total 250 / 250 500 / 750 Balance 480 / 480 1470 / 1950 220 / 2170 Physical Exam Narrative: GENERAL: Patient is alert, awake and oriented x3. [] NECK: No jugular vein distension. [] HEENT: No cyanosis. No icterus. No pallor. [] HEART: Regular S1 and S2. No murmur, rub or gallop. [] LUNGS: Clear to auscultate bilaterally. [] CENTRAL NERVOUS SYSTEM: Grossly nonfocal. [] EXTREMITIES: Lower extremities with 1+ edema bilaterally. Pulses palpable in the lower extremities, both dorsalis pedis and posterior tibial. [] Data 09/04/22 05:05 09/04/22 05:05 A&P Assessment and plan (1) Non-ST elevation myocardial infarction (NSTEMI) of indeterminate age: Patient s/p cardiac catheterization, revealing [employer] of LAD that we attempted PCI but wire could not cross totally occluded segment (2) Cardiomyopathy: Continue losartan and metoprolol (3) HTN (hypertension): Patient is currently normotensive. May continue on the current medications. (4) Abnormal EKG: (5) VPC (ventricular premature complex): Currently asymptomatic. May continue on the current medications. (6) CVA (cerebral vascular accident): The current management as per the primary attending. Plan Patient is doing well. He is ready to be discharged from cardiology standpoint. Attestations Medical Necessity Statement*: Care expected to cross 2 midnights. Coding Level of Care Code Acute Code for [facility] Diagnoses Non-ST elevation myocardial infarction (NSTEMI) of indeterminate age Cardiomyopathy I42.9 HTN (hypertension) I10 Abnormal EKG R94.31 VPC (ventricular premature complex) I49.3 CVA (cerebral vascular accident) I63.9
[2022-09-07] MEDS: ipratropium-albuterol 3 mL Neb INHALATION (09:12)
[2022-09-07] MEDS: nicotine 21 mg Patch 1 PATCH TRANSDERMA (09:42)
[2022-09-07] MEDS: isosorbide mononitrate ER 30 mg Tablet PO (09:43)
[2022-09-07] MEDS: spironolactone 25 mg Tablet PO (09:44)
[2022-09-07] MEDS: famotidine 20 mg Tablet PO (09:44)
[2022-09-07] MEDS: losartan 50 mg Tablet 25 MG PO (09:44)
[2022-09-07] MEDS: aspirin 81 mg EC Tablet PO (09:44)
[2022-09-07] MEDS: CLONazepam 0.5 mg Tablet PO (10:04)
--- NOTE | 2022-09-07 10:48 | P.DS_ITS ---
Discharge Providers Date of Admission: 09/04/22 15:58 Date of Discharge: September 07, 2022 Attending Provider at Admission: Katelyn Bernard MD Attending Provider at Discharge: Katelyn Bernard MD Diagnoses at Discharge Discharge Diagnosis (1) Cardiomyopathy: Status: Acute (2) CVA (cerebral vascular accident): Status: Acute (3) Ventricular bigeminy: Status: Acute (4) Hypomagnesemia: Status: Acute (5) VPC (ventricular premature complex): Status: Acute (6) Nicotine dependence: Status: Acute (7) TIANA (generalized anxiety disorder): Status: Acute Reason for Visit Reason for Visit: TIA Hospital Course Hospital Course Mr. Miranda is a 66-year-old male who presented to the emergency room on September 03, 2022 initially with strokelike symptoms. He had complained of a slurred speech which was new onset. This was confirmed by his family. He was out of the tPA window as last known normal was over 24 hours ago. Patient thought his symptoms were related to switching his Klonopin to clonidine recently. He is a poor historian overall. He had complained of some vague chest palpitations on the day prior to admission. EKG here showed ST segment depression, with some progressive changes over the next 24 hours. Troponin series showed elevated troponins with a delta greater than 10 at 2 and 6 hrs. His echocardiogram showed signs of ischemic cardiomyopathy with EF of 30 to 35%. He is clinically euvolemic presently. Stress test was performed which returned abnormal. Patient underwent cardiac cath due to an NSTEMI on September 06, 2022. He was found to have a subtotal occlusion of the LAD, unfortunately was unable to be stented. Patient has been evaluated by cardiology, medical management is recommended for now. Patient is being discharged with several new medications including aspirin, Plavix, atorvastatin, losartan, metoprolol, Aldactone. He has been resumed on his Klonopin at the time of discharge, a 5-day prescription has been provided, for further assessment and refills, referred to his primary care provider. Patient asked for referral to a new primary care physician in 1 has been provided to him. Uncertain why Klonopin was switched to clonidine, if this was an error or due to patient's hypertension. Since he is on multiple other meds new medications that affect blood pressure, his clonidine has now been discontinued. 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 Physical Exam Narrative: General: No acute distress, AO x3 HEENT: PERRLA, pupils bilaterally equal and reactive, pallors not present Chest: Normal vesicular breath sounds, no added sounds, equal good air entry bilaterally CVS: S1-S2 regular, no murmurs, no tachycardia, no gallops, no rubs Abdomen: Soft, nontender, no organomegaly, bowel sounds present Neuro: No focal deficits, no facial deformity, AO x3, power 5/5 in all limbs Discharge Data Studies Completed and Pending Completed Studies During Hospitalization Category Date Time Status CT head thrombolytic 75466 Stat Cat Scan 09/03/22 10:45 Completed Cardiac Stress Test MIBI [Sestamibi Stress Test Request Exams 09/05/22 06:27 Draft ] Routine NM jessee perf SPECT r/s* 39300 Routine Nuc Med 09/05/22 18:37 Completed CV carotid duplex BI* [id number] Routine Ultrasound 09/03/22 06:00 Completed CV. 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 Mild cerebral atrophy. 2. Chronic pansinusitis. Laboratory Results WBC 6.9 10^3/uL (4.0-10.0) 09/04/22 05:05 RBC 3.77 10^6/uL (4.1-5.3) L 09/04/22 05:05 Hgb 12.5 g/dL (11.7-16.6) 09/04/22 05:05 Hct 36.6 % (42.0-52.0) L 09/04/22 05:05 MCV 97.1 fl (80-94) H 09/04/22 05:05 MCH 33.2 pg (28.0-34.0) 09/04/22 05:05 MCHC 34.2 g/dL (30.0-36.0) 09/04/22 05:05 RDW 12.5 % (12.1-15.1) 09/04/22 05:05 Plt Count 261 10^3/cmm (130-400) 09/04/22 05:05 MPV 9.9 fL (7.4-10.4) 09/04/22 05:05 Neut % (Auto) 61.5 % 09/04/22 05:05 Lymph % (Auto) 22.8 % 09/04/22 05:05 [place] % (Auto) 9.2 % 09/04/22 05:05 Eos % (Auto) 4.9 % 09/04/22 05:05 Baso % (Auto) 1.3 % 09/04/22 05:05 Neut # (Auto) 4.26 10^3/uL (1.8-7.7) 09/04/22 05:05 Lymph # (Auto) 1.6 10^3/uL (0.8-4.8) 09/04/22 05:05 [place] # (Auto) 0.6 10^3/uL (0.2-0.9) 09/04/22 05:05 Eos # (Auto) 0.3 10^3/uL (0.0-0.8) 09/04/22 05:05 Baso # (Auto) 0.1 10^3/uL (0.0-0.1) 09/04/22 05:05 Nucleated RBC % (auto) 0 % 09/04/22 05:05 Nucleated RBCs # 0.0 /100WBC 09/04/22 05:05 PT 14.30 SECONDS (12.1-14.9) 09/03/22 11:21 INR 1.07 (0.8-1.2) 09/03/22 11:21 APTT 28.2 SECONDS (23.9-36.7) 09/03/22 11:21 Sodium 138 mmol/L (136-145) 09/04/22 05:05 Potassium 3.8 mmol/L (3.5-5.1) 09/04/22 05:05 Chloride 104 mmol/L (98-107) 09/04/22 05:05 Carbon Dioxide 25 mmol/L (22-29) 09/04/22 05:05 Anion Gap 12.8 (5-19) 09/04/22 05:05 BUN 6 mg/dL (8-23) L 09/04/22 05:05 Creatinine 0.9 mg/dL (0.7-1.2) 09/04/22 05:05 GFR Calculation 85.0 mL/min (90-130) L 09/04/22 05:05 Glucose 91 mg/dL (65-115) 09/04/22 05:05 POC Glucose 125 mg/dL (70-110) H 09/07/22 06:29 Estimat Average Glucose 103 09/04/22 05:05 Hemoglobin A1c 5.2 % (4.0-6.0) 09/04/22 05:05 Calculated Osmolality 283 mOsm/kg (285-295) L 09/04/22 05:05 Calcium 8.3 mg/dL (8.5-10.5) L 09/04/22 05:05 Magnesium 1.6 mg/dL (1.7-2.3) L 09/04/22 05:05 Total Bilirubin 0.4 mg/dL (0.15-1.2) 09/04/22 05:05 AST 19 U/L (0-40) 09/04/22 05:05 ALT 8 U/L (0-41) 09/04/22 05:05 Alkaline Phosphatase 81 U/L (40-130) 09/04/22 05:05 Troponin T Baseline 140 ng/L (0-15) H* 09/04/22 15:45 Troponin T 120 Minute 147.4 ng/L (0-15) H 09/04/22 18:07 Delta Troponin T 7.4 ABS# (0-10) 09/04/22 18:07 Troponin T Hi Sens 6Hr 164.5 ng/L (0-15) H 09/04/22 21:11 Troponin T Hi Sens 6Hr Delta 24.5 ng/L (0-12) H* 09/04/22 21:11 Total Protein 5.2 g/dL (6.6-8.7) L 09/04/22 05:05 Albumin 3.1 g/dL (3.5-5.2) L 09/04/22 05:05 Globulin 2.1 g/dL (1.3-4.6) 09/04/22 05:05 Triglycerides 67 mg/dL (0-150) 09/04/22 05:05 Cholesterol 117 mg/dL (0-200) 09/04/22 05:05 LDL Cholesterol, Calc 68 mg/dL (50-129) 09/04/22 05:05 HDL Cholesterol 36 mg/dL (60-100) L 09/04/22 05:05 LDL/HDL Ratio 1.89 RATIO (0.00-3.22) 09/04/22 05:05 Cholesterol/HDL Ratio 3.25 mg/dL (1.0-5.00) 09/04/22 05:05 Urine Color Yellow (Yellow) 09/03/22 12:31 Urine Appearance Clear (CLEAR) 09/03/22 12:31 Urine pH 6.5 (5-7) 09/03/22 12:31 Ur Specific [place] 1.005 (1.005-1.030) 09/03/22 12:31 Urine Protein Neg (Negative) 09/03/22 12:31 Urine Glucose (UA) Norm (Normal) 09/03/22 12:31 Urine Ketones 1+ (Negative) H 09/03/22 12:31 Urine Blood Neg (Negative) 09/03/22 12:31 Urine Nitrate Negative (Negative) 09/03/22 12:31 Urine Bilirubin Neg (Negative) 09/03/22 12:31 Urine Urobilinogen 4 mg/dL (Negative) H 09/03/22 12:31 Ur Leukocyte Esterase Negative (Negative) 09/03/22 12:31 Urine Opiates Screen Negative ng/mL (Negative) 09/03/22 12:31 Ur Barbiturates Screen Negative ng/mL (Negative) 09/03/22 12:31 Ur Phencyclidine Scrn Negative ng/mL (Negative) 09/03/22 12:31 Ur Amphetamines Screen Negative ng/mL (Negative) 09/03/22 12:31 U Benzodiazepines Scrn Negative ng/mL (Negative) 09/03/22 12:31 Urine Cocaine Screen Negative ng/mL (Negative) 09/03/22 12:31 U Marijuana (THC) Screen Positive ng/mL (Negative) H 09/03/22 12:31 Additional Data from Hospital Stay [address] [address] Nuclear Medicine Report Signed Patient: Michael Miranda Unit #: [id number] : 1955 Age/Sex: 66 / M ADM Date: 09/03/22 [facility]: [facility] Room/Bed: 277-[address]: Katelyn Bernard MD Ordering Provider/Ordering MD: Melody Jacobo MD Date of Service: 09/05/22 Procedure(s): NM jessee perf SPECT r/s* [id number] Accession Number(s): [id number] Report Number: [id number] ?NM jessee perf SPECT r/s* [id number] ?Michael Miranda ?Age:? ? 66 ? ? Gender: ? ? M ?:? ? 1955 ?Exam Date: ? ? 09/05/2022 06:26 ?Ordering Phys: ? ? Melody Jacobo ? Tino REYES ? ([email or web address]) ?Technologist:? ? ? Ailyn Torrez, ? HUNTER TRAPPER ?Exam Location:? ? ? [facility] ?MRN:? ? [id number] ?Account Number: ? ? ? [id number] ?Indications:? ? ? CHEST PAIN ?STRESS TEST ?[facility] ?IMAGE PROTOCOL? ? ? Rest/Stress 1? Lexiscan ? Day ? Radiopharmaceutical ? Dose (mCi) ? Administration Site ? ? ? Administered by ?Rest:? Tc-99m? 10.7 ? IV? RADHA Yepez ? Sestamibi ?Stress:Tc-99m? 32.6 ? IV? RADHA Yepez ? Sestamibi ?Rest:? ? 05-Sep-2022 ? 60 ? Discovery 630 ?Stress: ? ? 05-Sep-2022? 30 ? Discovery 630 ?0.4mg Lexiscan. Images obtained in supine and prone position. ?SPECT RESULTS ?Technical Quality: ? ? ? Excellent ?Raw Data Analysis:? ? ? Normal ?Image Corrections:? ? ? No attenuation or motion correction applied ?Summed Stress Score:? 18 ?Summed Rest Score: ? ? ? 10 ?Summed Difference Score: ? 8 ?PERFUSION FINDINGS ?Moderate to severely decreased tracer uptake in all the apical segments ?including the LV apex.? Minimal to moderately decreased tracer uptake in the ?mid anterior, anteroseptal and inferoseptal segments.? Some reversibility was ?noted in all the segments. ?FUNCTIONAL RESULTS ? ? (calculated via Gated SPECT) ? Stress Image LV EF (%):? ? 53 ? Stress EDV (mL):125? TID:? 1.01 ? Stress ESV (mL):59 ?FUNCTIONAL FINDINGS: ?Segmental wall motion analysis revealed moderate diffuse hypokinesia of the LV ?apex.? Moderate diffuse hypokinesia of the septum. ?IMPRESSIONS ?1.? Myocardial perfusion imaging revealing moderate to large area of moderate ?to severely decreased tracer uptake in all the apical segments, mid anterior, ?anteroseptal and inferoseptal segments with significant reversibility, ?suggesting myocardial scarring with ischemia in the distribution of all the 3 ?coronary arteries.? The total ischemic burden was 35% of the total myocardium. ?2.? LV ejection fraction of 53%. ?3.? LV wall motion analysis revealed diffuse hypokinesia of the LV apex and ?septum ?4.? Mildly dilated LV cavity with end-systolic volume of 59? ml. ?No similar previous studies are available for comparison. Procedures Performed Cardiac cath Vitals Last Vital Signs Temp 97.8 F 09/07/22 08:38 Pulse 80 09/07/22 09:12 Resp 16 09/07/22 09:12 BP 153/94 09/07/22 08:38 Pulse Ox 96 09/07/22 09:12 O2 Del Method 09/07/22 09:12 Discharge Plan Discharge Patient Disposition: Home Condition: Stable Prescriptions: New losartan 50 mg Tablet 25 mg PO DAILY 30 Days Qty: 30 0RF isosorbide mononitrate 30 mg Tablet Extended Release 24 Hr 30 mg PO DAILY 30 Days Qty: 30 2RF clonazepam 0.5 mg Tablet 0.5 mg PO BID PRN (Reason: anxiety) 5 Days Qty: 10 0RF clopidogrel 75 mg Tablet 75 mg PO DAILY 30 Days Qty: 30 2RF aspirin 81 mg Tablet,Delayed Release (Dr/Ec) 81 mg PO DAILY 30 Days Qty: 30 2RF famotidine 20 mg Tablet 20 mg PO BID 30 Days Qty: 60 2RF metoprolol tartrate 25 mg Tablet 25 mg PO BID@0900,2100 30 Days Qty: 60 2RF spironolactone 25 mg Tablet 25 mg PO DAILY 30 Days Qty: 30 0RF atorvastatin 40 mg Tablet 40 mg PO BEDTIME 30 Days Qty: 30 2RF Continued trazodone 100 mg tablet 200 mg PO BEDTIME aripiprazole 10 mg Tablet 10 mg PO DAILY Discontinued clonidine HCl 0.1 mg tablet 0.1 mg PO BEDTIME Trelegy Ellipta 200-62.5-25 mcg blister with device 1 inh INHALATION DAILY Discharge Orders: Discharge Order (Routine); Ordered 09/07/22 Ordered By: Katelyn Bernard Other Ambulatory Orders: Comprehensive Metabolic Panel (Routine) Timeframe: 3 Days Facility: [facility] - Location: Lab - Main Lab Ordered By: Katelyn Bernard Referrals: [facility] [Other] (You have been arranged with [facility] for home health services. If you have any questions or concerns please reach out to them at [phone].) Angelica Alfaro NP [Referring] - Nikkie Melendez FNP [Nurse Practitioner] - 09/12/22 11:15 am Justice Sprague MD [Physician] - 6 Weeks Discharge Diet: Cardiac Discharge Activity: Resume usual activity Patient Instructions: Ischemic Stroke (DC), Opioid Safety Discharge Attestations Time Spent in Discharge Care*: greater than 30 min Quality Metrics Clinical Quality Measures [ Acute Myocardial Infaction { Clinical Trial Participant: No; Contraindication to aspirin: None; Aspirin prescribed; Contraindication to statin: None; Statin prescribed; Contraindication to PCI: None; PCI performed;}] Coding Level of Care Code Acute Code for [facility] Fwd Diagnoses Cardiomyopathy I42.9 CVA (cerebral vascular accident) I63.9 Ventricular bigeminy I49.8 Hypomagnesemia E83.42 VPC (ventricular premature complex) I49.3 Nicotine dependence F17.200 TIANA (generalized anxiety disorder) F41.1
[2022-09-07 11:05] LABS: Glucose Point of Care 106 mg/dL (70-110)
--- NOTE | 2022-09-07 11:19 | PC.SOCIAL ---
IMM Update pg 2 of IMM updated and reviewed w/ patient. Copy provided and Copy dated, initialed and placed in chart.
[2022-09-07] MEDS: metoprolol tartrate 25 mg Tablet PO (11:54)
[2022-09-07 12:27] LABS: Alanine Aminotransferase 19 U/L (0-41); Albumin Level 3.5 g/dL (3.5-5.2); Alkaline Phosphatase 83 U/L (40-130); Blood Urea Nitrogen 15 mg/dL (8-23); Calcium 8.9 mg/dL (8.5-10.5); Carbon Dioxide 26 mmol/L (22-29); Chloride 95 mmol/L (98-107); Globulin 2.4 g/dL (1.3-4.6); Glomerular Filtration Rate 75.2 mL/min (90-130); Glucose 92 mg/dL (65-115); Osmolality Calculated 268 mOsm/kg (285-295); Sodium 129 mmol/L (136-145); Total Bilirubin 0.3 mg/dL (0.15-1.2); Total Protein 5.9 g/dL (6.6-8.7)
[2022-09-07 12:34] LABS: Anion Gap 12.1 (5-19); Potassium 4.1 mmol/L (3.5-5.1)
[2022-09-07 12:35] LABS: Aspartate Amino Transferase 36 U/L (0-40)
== END 2022-09-07 13:00 | disposition home health service (06) | DRG 280 ==
LOC: ER 18:53 → MEDSURG 19:03 → CSU 09-06 10:37
PROVIDERS: Internal Medicine; Internal Medicine Cardiovascular Disease; Admitting Provider Student in an Organized Health Care Education/Training Program; Emergency Provider Family Medicine; Visit Provider Student in an Organized Health Care Education/Training Program
PROC: B2111ZZ Fluoroscopy of Multiple Coronary Arteries using Low Osmolar Contrast (ICD-10-PCS; principal; 2022-09-06 08:45)
DX: I21.4 Non-ST elevation (NSTEMI) myocardial infarction (principal); I50.21 Acute systolic (congestive) heart failure; G45.9 Transient cerebral ischemic attack, unspecified; I11.0 Hypertensive heart disease with heart failure; Z86.73 Personal history of transient ischemic attack (TIA), and cerebral infarction without residual deficits; F20.9 Schizophrenia, unspecified; F41.1 Generalized anxiety disorder; E83.42 Hypomagnesemia; I25.5 Ischemic cardiomyopathy; B19.20 Unspecified viral hepatitis C without hepatic coma; J44.9 Chronic obstructive pulmonary disease, unspecified; I25.10 Atherosclerotic heart disease of native coronary artery without angina pectoris
CPT/HCPCS: 36415; 36416; 70450; 78452; 80053; 80061; 80306; 81003; 82962; 83036; 83735; 84484; 85025; 85610; 85730; 92523; 92610; 93005; 93017; 93306; 93458; 93880; 94640; 96365; 96367; 96372; 96374; 96375; 97116; 97161; 97165; 99152; 99153; 99285; A9500; C1725; C1769; C1887; C1894; G0378; J1644; J1650; J2250; J2785; J2930; J3010; J3475; J3490; J7030; J7512; Q9967

== ENCOUNTER → 2022-09-12 11:08 | Outpatient (BNVA) | payer MEDICARE, SELFPAY | PROVIDERS: PCP Nurse Practitioner Family; Visit Provider Specialist | DX: I42.9 Cardiomyopathy, unspecified (principal); I10 Essential (primary) hypertension; F17.200 Nicotine dependence, unspecified, uncomplicated; Z79.82 Long term (current) use of aspirin; I25.2 Old myocardial infarction | CPT/HCPCS: 99214 ==

== ENCOUNTER 2024-01-19 04:57 | Observation (INO) | payer MEDICARE, SELFPAY ==
[2024-01-19] VITALS (89 sets, daily range): BP systolic 106–171; BP diastolic 55–98; PULSE 53–88; RESP 15–39; TEMP 36.5–37.3; O2SAT 90–98; BMI 19.3
--- NOTE | 2024-01-19 05:09 | ECG_ITS ---
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 Measurements Intervals [place] Rate: 75 P: 92 VA: 175 QRS: -31 QRSD: 149 T: 74 QT: 442 QTc: 495 Interpretive Statements SINUS RHYTHM WITH OCCASIONAL SUPRAVENTRICULAR PREMATURE COMPLEXES LEFT AXIS DEVIATION [QRS AXIS < -30] LEFT BUNDLE BRANCH BLOCK [120+ ms QRS DURATION, 80+ ms Q/S IN V1/V2, 85+ ms R IN I/aVL/V5/V6] Compared to ECG 09/04/2022 20:37:39 Left-axis deviation now present Left bundle-branch block now present Myocardial infarct finding no longer present T-wave abnormality no longer present Possible ischemia no longer present Electronically Signed On 01-19-2024 14:10:22 CDT by Evens Gloria M.D. [id number]
--- NOTE | 2024-01-19 05:17 | XRR_ITS ---
PROCEDURE INFORMATION: Exam: XR Chest Exam date and time: 01/19/2024 5:20 AM Age: 68 years old Clinical indication: Patient HX: C/O RT sided chest wall pain; Additional info: Right rib/chest pain TECHNIQUE: Imaging protocol: Radiologic exam of the chest. Views: 1 view. COMPARISON: No relevant prior studies available. FINDINGS: Lungs: Unremarkable. No consolidation. Pleural spaces: Unremarkable. No pleural effusion. No pneumothorax. Heart/Mediastinum: Unremarkable. No cardiomegaly. Bones/joints: Unremarkable. XR/XR chest 1V 36796 IMPRESSION: No acute findings.
--- NOTE | 2024-01-19 05:27 | ED_ITS ---
Documented by User: Ernesto Mcclure MD 01/19/24 05:35 HPI - General Adult 2 General: Chief complaint: General Medical Stated complaint: rib pain Time Seen by Provider: 01/19/24 05:16 Source: patient and EMS History of Present Illness: Patient is a 68-year-old male with a history of schizophrenia who also has a history of coronary artery disease with LA back in 2022 who presents with complaints of sharp right-sided chest pain. History is somewhat limited due to his mental health disease however he tells me that he thought he was having a heart attack tonight and woke up with sharp chest pain. He points to the right side of his chest as the location of his pain. He did not have this pain before going to bed. Onset (ago): minute(s) (~45) Radiation: non-radiation Associated symptoms: Reports chest pain; Deny nausea or vomiting Review of Systems 2 Const: Denies: fever(s) or chills Card: Reports: chest pain GI: Denies: abdominal pain, nausea or vomiting PFSH ED 2 PFSH: Medical History (Updated 01/19/24 @ 10:51 by Getachew Curtis DO) Schizophrenia Hyperlipidemia GERD (gastroesophageal reflux disease) Coronary artery disease Carotid artery disease Nicotine dependence Cardiomyopathy CVA (cerebral vascular accident) HTN (hypertension) Hx of completed stroke Surgical History (Updated 01/19/24 @ 10:25 by Dio Jordan MD) S/P cholecystectomy S/P tonsillectomy Social History (Updated 01/19/24 @ 10:26 by Dio Jordan MD) Smoking and tobacco/nicotine status: current every day tobacco/nicotine user Alcohol intake: never Substance/Drug Use: former Physical Exam 2 Const: COMMON NORMALS: no acute distress, average body habitus and alert O RIENTATION/CONSCIOUSNESS: Yes awake OTHER: Fairly disheveled 68-year-old male with history of schizophrenia in no acute distress HENMT: COMMON NORMALS: normocephalic and atraumatic HEAD & SCALP: n ormocephalic and atraumatic TEETH & GINGIVA: Yes edentulous Eye: COMMON NORMALS: conjunctivae normal CONJUNCTIVA: Yes conjunctivae normal Neck/C-Spine: GENERAL: Yes normal visual inspection Resp: COMMON NORMALS: normal respiratory effort, No retractions and No use of accessory muscles OTHER: Patient reports chest wall tenderness on the right lateral chest wall. No skin rashes or lesions. Cardio: COMMON NORMALS: regular rhythm and Peripheral pulses 2+ throughout RHYTHM: regular rhythm PERIPHERAL PULSES: Peripheral pulses 2+ throughout GI: COMMON NORMALS: Soft to palpation and non-tender PALPATION: Yes Soft to palpation Extremity: COMMON NORMALS: full ROM and no pedal edema Neuro: COMMON NORMALS: no focal motor deficits SENSORIUM/ORIENTATION: Yes alert Skin: COMMON NORMALS: no rashes or lesions noted GENERAL SKIN EXAM: no rashes or lesions noted Course 2 Vital Signs: Vital signs: Vital Signs Temperature 97.7 F 01/19/24 04:58 Pulse Rate 57 L 01/19/24 09:04 Respiratory Rate 18 01/19/24 10:11 Blood Pressure 168/81 01/19/24 08:41 Pulse Oximetry 95 01/19/24 10:11 Oxygen Delivery Me thod Room Air 01/19/24 08:57 MDM - General Adult Medical Decision Making Patient is a 68-year-old male with a history of schizophrenia as well as coronary artery disease who presents with chest pain that started upon waking early this morning. EKG is sinus rhythm with a left bundle branch block. No criteria meeting STEMI. Chest x-ray was obtained which does not show any acute cardiothoracic findings per my interpretation. Basic labs have been ordered including a CBC, CMP, lipase and troponin. Patient will be turned over to Dr. Curtis pending labs and repeat evaluation. Lab Data 01/19/24 05:54 01/19/24 05:54 Radiology Impressions Chest X-Ray 01/19/24 05:17 IMPRESSION: No acute findings. Laboratory Results WBC 7.74 10^3/uL (3.29-11.43) 01/19/24 05:54 RBC 2.92 10^6/uL (3.85-5.65) L 01/19/24 05:54 Hgb 9.90 g/dL (11.27-16.99) L 01/19/24 05:54 Hct 29.4 % (37-53) L 01/19/24 05:54 MCV 100.7 fl (82-101) 01/19/24 05:54 MCH 33.9 pg (27-33) H 01/19/24 05:54 MCHC 33.7 g/dL (30-55) 01/19/24 05:54 RDW 13.2 % (12.1-15.1) 01/19/24 05:54 Plt Count 273 10^3/cmm (157-399) 01/19/24 05:54 MPV 8.6 fL (7.4-10.4) 01/19/24 05:54 Neut % (Auto) 80.4 % 01/19/24 05:54 Lymph % (Auto) 8.0 % 01/19/24 05:54 Blanco % (Auto) 8.3 % 01/19/24 05:54 Eos % (Auto) 2.2 % 01/19/24 05:54 Baso % (Auto) 0.6 % 01/19/24 05:54 Neut # (Auto) 6.22 10^3/uL (1.8-7.7) 01/19/24 05:54 Lymph # (Auto) 0.6 10^3/uL (0.8-4.8) L 01/19/24 05:54 Blanco # (Auto) 0.6 10^3/uL (0.2-0.9) 01/19/24 05:54 Eos # (Auto) 0.2 10^3/uL (0.0-0.8) 01/19/24 05:54 Baso # (Auto) 0.1 10^3/uL (0.0-0.1) 01/19/24 05:54 Nucleated RBC % (auto) 0 % 01/19/24 05:54 Nucleated RBCs # 0.0 /100WBC 01/19/24 05:54 Sodium 127 mmol/L (136-145) L 01/19/24 05:54 Potassium 4.4 mmol/L (3.5-5.1) 01/19/24 05:54 Chloride 91 mmol/L (98-107) L 01/19/24 05:54 Carbon Dioxide 26 mmol/L (22-29) 01/19/24 05:54 Anion Gap 14.4 (5-19) 01/19/24 05:54 BUN 12 mg/dL (8-23) 01/19/24 05:54 Creatinine 0.7 mg/dL (0.7-1.2) 01/19/24 05:54 GFR Calculation 112.8 mL/min (90-130) 01/19/24 05:54 Glucose 100 mg/dL (65-115) 01/19/24 05:54 Calculated Osmolality 264 mOsm/kg (285-295) L 01/19/24 05:54 Calcium 8.6 mg/dL (8.5-10.5) 01/19/24 05:54 Total Bilirubin 0.2 mg/dL (0.15-1.2) 01/19/24 05:54 AST 20 U/L (0-40) 01/19/24 05:54 ALT 15 U/L (0-41) 01/19/24 05:54 Alkaline Phosphatase 100 U/L (40-130) 01/19/24 05:54 Troponin T Baseline 23 ng/L (0-15) H 01/19/24 05:54 Troponin T 120 Minute 23.06 ng/L (0-15) H 01/19/24 07:47 Delta Troponin T 0.06 ABS# (0-10) 01/19/24 07:47 Total Protein 5.0 g/dL (6.6-8.7) L 01/19/24 05:54 Albumin 3.1 g/dL (3.5-5.2) L 01/19/24 05:54 Globulin 1.9 g/dL (1.3-4.6) 01/19/24 05:54 Lipase 27 U/L (13-60) 01/19/24 05:54 XR interpretation done by ED provider, pending radiology final review ED provider radiology interpretation(s): Emphysematous changes, mild hyperexpansion noted, old healed rib fractures noted in the left ribs, no acute cardiothoracic findings noted. EKG Data EKG 1: I personally reviewed and interpreted this EKG as follows: EKG interpretation date: 01/19/24 EKG interpretation time: 05:31 Interpretation: Sinus rhythm, rate of 75 bpm. Left bundle branch block noted. Left bundle branch block is new compared to previous EKG in August 2022. Negative Sgarbossa criteria Computer generated interpretation: Chest X-Ray 01/19/24 05:17 IMPRESSION: No acute findings. Discharge Plan Discharge Patient Disposition: Admitted As Inpatient Admit Provider: Dio Jordan Clinical Impression: Chest pain, Cardiomyopathy, Coronary artery disease Condition: Stable Sign Out Sign Out Data: Patient Sign Out occurred on 01/19/24 at 06:13. Patient's care was discussed, and care was transferred from Ernesto Mcclure MD to Getachew Curtis DO. Coding Level of Care Code ED House Cleaner Supervisor for Chg Fwd Documented by User: Getachew Curtis DO 01/19/24 10:51 HPI - General Adult 2 General: Chief complaint: General Medical Stated complaint: rib pain Time Seen by Provider: 01/19/24 05:16 [facility] ED 2 PFSH: Medical History (Updated 01/19/24 @ 10:51 by Getachew Curtis DO) Schizophrenia Hyperlipidemia GERD (gastroesophageal reflux disease) Coronary artery disease Carotid artery disease Nicotine dependence Cardiomyopathy CVA (cerebral vascular accident) HTN (hypertension) Hx of completed stroke Surgical History (Updated 01/19/24 @ 10:25 by Dio Jordan MD) S/P cholecystectomy S/P tonsillectomy Social History (Updated 01/19/24 @ 10:26 by Dio Jordan MD) Smoking and tobacco/nicotine status: current every day tobacco/nicotine user Alcohol intake: never Substance/Drug Use: former Course 2 Vital Signs: Vital signs: Vital Signs Temperature 97.7 F 01/19/24 04:58 Pulse Rate 57 L 01/19/24 09:04 Respiratory Rate 18 01/19/24 10:11 Blood Pressure 168/81 01/19/24 08:41 Pulse Oximetry 95 01/19/24 10:11 Oxygen Delivery Me thod Room Air 01/19/24 08:57 MDM - General Adult Medical Decision Making Patient is a 68-year-old male with a history of schizophrenia as well as coronary artery disease who presents with chest pain that started upon waking early this morning. EKG is sinus rhythm with a left bundle branch block. No criteria meeting STEMI. Chest x-ray was obtained which does not show any acute cardiothoracic findings per my interpretation. Basic labs have been ordered including a CBC, CMP, lipase and troponin. Patient will be turned over to Dr. Curtis pending labs and repeat evaluation. Chart reviewed patient continues to have pain. Previously had angiogram which showed subtotal chronic occlusion of the proximal LAD they had attempted to cross the lesion to stent it but unable to do so and in the chart it recommended medical management and his symptoms persisted they would consider repeat attempt for stenting or possible referral for by single-vessel bypass. Discussed Dr. Méndez who had seen him previously and done his angiogram. He recommends admission for further evaluation due to possible repeat stress testing. Discussed Dr. Jordan. He asked that we have Dr. Méndez see the patient. Lab Data 01/19/24 05:54 01/19/24 05:54 Radiology Impressions Chest X-Ray 01/19/24 05:17 IMPRESSION: No acute findings. Laboratory Results WBC 7.74 10^3/uL (3.29-11.43) 01/19/24 05:54 RBC 2.92 10^6/uL (3.85-5.65) L 01/19/24 05:54 Hgb 9.90 g/dL (11.27-16.99) L 01/19/24 05:54 Hct 29.4 % (37-53) L 01/19/24 05:54 MCV 100.7 fl (82-101) 01/19/24 05:54 MCH 33.9 pg (27-33) H 01/19/24 05:54 MCHC 33.7 g/dL (30-55) 01/19/24 05:54 RDW 13.2 % (12.1-15.1) 01/19/24 05:54 Plt Count 273 10^3/cmm (157-399) 01/19/24 05:54 MPV 8.6 fL (7.4-10.4) 01/19/24 05:54 Neut % (Auto) 80.4 % 01/19/24 05:54 Lymph % (Auto) 8.0 % 01/19/24 05:54 Blanco % (Auto) 8.3 % 01/19/24 05:54 Eos % (Auto) 2.2 % 01/19/24 05:54 Baso % (Auto) 0.6 % 01/19/24 05:54 Neut # (Auto) 6.22 10^3/uL (1.8-7.7) 01/19/24 05:54 Lymph # (Auto) 0.6 10^3/uL (0.8-4.8) L 01/19/24 05:54 Blanco # (Auto) 0.6 10^3/uL (0.2-0.9) 01/19/24 05:54 Eos # (Auto) 0.2 10^3/uL (0.0-0.8) 01/19/24 05:54 Baso # (Auto) 0.1 10^3/uL (0.0-0.1) 01/19/24 05:54 Nucleated RBC % (auto) 0 % 01/19/24 05:54 Nucleated RBCs # 0.0 /100WBC 01/19/24 05:54 Sodium 127 mmol/L (136-145) L 01/19/24 05:54 Potassium 4.4 mmol/L (3.5-5.1) 01/19/24 05:54 Chloride 91 mmol/L (98-107) L 01/19/24 05:54 Carbon Dioxide 26 mmol/L (22-29) 01/19/24 05:54 Anion Gap 14.4 (5-19) 01/19/24 05:54 BUN 12 mg/dL (8-23) 01/19/24 05:54 Creatinine 0.7 mg/dL (0.7-1.2) 01/19/24 05:54 GFR Calculation 112.8 mL/min (90-130) 01/19/24 05:54 Glucose 100 mg/dL (65-115) 01/19/24 05:54 Calculated Osmolality 264 mOsm/kg (285-295) L 01/19/24 05:54 Calcium 8.6 mg/dL (8.5-10.5) 01/19/24 05:54 Total Bilirubin 0.2 mg/dL (0.15-1.2) 01/19/24 05:54 AST 20 U/L (0-40) 01/19/24 05:54 ALT 15 U/L (0-41) 01/19/24 05:54 Alkaline Phosphatase 100 U/L (40-130) 01/19/24 05:54 Troponin T Baseline 23 ng/L (0-15) H 01/19/24 05:54 Troponin T 120 Minute 23.06 ng/L (0-15) H 01/19/24 07:47 Delta Troponin T 0.06 ABS# (0-10) 01/19/24 07:47 Total Protein 5.0 g/dL (6.6-8.7) L 01/19/24 05:54 Albumin 3.1 g/dL (3.5-5.2) L 01/19/24 05:54 Globulin 1.9 g/dL (1.3-4.6) 01/19/24 05:54 Lipase 27 U/L (13-60) 01/19/24 05:54 EKG Data EKG 1: Computer generated interpretation: Chest X-Ray 01/19/24 05:17 IMPRESSION: No acute findings. Discharge Plan Discharge Patient Disposition: Admitted As Inpatient Admit Provider: Dio Jordan Clinical Impression: Chest pain, Cardiomyopathy, Coronary artery disease Condition: Stable Sign Out Sign Out Data: Patient Sign Out occurred on 01/19/24 at 06:13. Patient's care was discussed, and care was transferred from Ernesto Mcclure MD to Getachew Curtis DO. Coding Level of Care Code ED House Cleaner Supervisor for Chg Anne Marie
[2024-01-19] MEDS: aspirin 325 mg Tablet PO (05:35)
[2024-01-19 06:04] LABS: Basophils # 0.1 10^3/uL (0.0-0.1); Basophils % 0.6 %; Eosinophils # 0.2 10^3/uL (0.0-0.8); Eosinophils % 2.2 %; Hematocrit 29.4 % (37-53); Lymphocytes # 0.6 10^3/uL (0.8-4.8); Mean Corpuscular HGB Conc 33.7 g/dL (30-55); Mean Corpuscular Hemoglobin 33.9 pg (27-33); Mean Corpuscular Volume 100.7 fl (82-101); Mean Platelet Volume 8.6 fL (7.4-10.4); Monocytes # 0.6 10^3/uL (0.2-0.9); Monocytes % 8.3 %; Neutrophils # 6.22 10^3/uL (1.8-7.7); Neutrophils % 80.4 %; Nucleated Red Blood Cells % 0 %; Platelet Count 273 10^3/cmm (157-399); Red Blood Count 2.92 10^6/uL (3.85-5.65); Red Cell Distribution Width 13.2 % (12.1-15.1); White Blood Count 7.74 10^3/uL (3.29-11.43)
[2024-01-19 06:35] LABS: Alanine Aminotransferase 15 U/L (0-41); Albumin Level 3.1 g/dL (3.5-5.2); Alkaline Phosphatase 100 U/L (40-130); Anion Gap 14.4 (5-19); Aspartate Amino Transferase 20 U/L (0-40); Blood Urea Nitrogen 12 mg/dL (8-23); Calcium 8.6 mg/dL (8.5-10.5); Carbon Dioxide 26 mmol/L (22-29); Chloride 91 mmol/L (98-107); Creatinine Clr Calc Pharmacy 77.1507; Globulin 1.9 g/dL (1.3-4.6); Glomerular Filtration Rate 112.8 mL/min (90-130); Glucose 100 mg/dL (65-115); Lipase 27 U/L (13-60); Osmolality Calculated 264 mOsm/kg (285-295); Potassium 4.4 mmol/L (3.5-5.1); Sodium 127 mmol/L (136-145); Total Bilirubin 0.2 mg/dL (0.15-1.2)
[2024-01-19 06:36] LABS: Troponin(5th) Baseline 23 ng/L (0-15)
--- NOTE | 2024-01-19 07:37 | ECG_ITS ---
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 Measurements Intervals [place] Rate: 58 P: 86 AL: 183 QRS: 28 QRSD: 138 T: 79 QT: 443 QTc: 436 Interpretive Statements SINUS BRADYCARDIA INTRAVENTRICULAR CONDUCTION DELAY [130+ ms QRS DURATION] ANTEROSEPTAL MYOCARDIAL INFARCTION , OF INDETERMINATE AGE [40+ ms Q WAVE IN V1-V4] Compared to ECG 01/19/2024 05:09:19 Intraventricular conduction delay now present Myocardial infarct finding now present Sinus rhythm no longer present Left-axis deviation no longer present Left bundle-branch block no longer present Electronically Signed On 01-19-2024 14:16:50 CDT by Evens Gloria M.D. [id number]
[2024-01-19 08:08] LABS: Troponin 5 2HR 23.06 ng/L (0-15); Troponin 5 2HR Delta 0.06 ABS# (0-10)
[2024-01-19] MEDS: ipratropium-albuterol 3 mL Neb INHALATION ×4 (08:56→19:32)
[2024-01-19] MEDS: morphine 4 mg/mL SDV 1 mL 2 MG IVP ×2 (10:11→13:30)
--- NOTE | 2024-01-19 10:21 | P.HP_ITS ---
Providers/Chief Complaint 2 Admitting Physician: Dio Jordan MD Primary Care Provider: Angelica Alfaro NP Chief Complaint: rib pain History of Present Illness Michael Miranda is a 68 year old male with history of schizophrenia, carotid artery disease, coronary artery disease among others who presents to the hospital with chest discomfort. He reports he has been under quite a bit of stress lately, trying to quit smoking. He was coughing quite a bit yesterday, and finally had a cigarette which stopped the coughing. He states he used to smoke 2 to 3 packs/day and is cut down to about a half a pack a day. Around 2 AM he was sleeping, and had onset of chest discomfort all over his chest. It is difficult to quantify. He reports that it is better but he still has significant right- sided chest discomfort. No nausea or vomiting. I do not really get a history of any exertional chest discomfort from them. He cannot categorize the discomfort any further. History is somewhat difficult. Past history was significant for coronary cath in 09/05 where it was identified he had an ischemic cardiomyopathy with an EF of 35% and a chronic total occlusion of the LAD was most significant. This was attempted to be crossed but unsuccessful. It was recommended if he had further symptoms consideration of one-vessel bypass versus trying to cross the occlusion again. He denies any blood in stool, black or tarry stool, severe reflux. Review of Systems 2 General: Reports: 10 or more systems reviewed and unremarkable except in HPI and below Card: Reports: chest pain Resp: Reports: non-productive cough and wheezing; Denies: dyspnea or productive cough GI: Denies: abdominal pain, nausea, vomiting, hematochezia or melena Medications/Allergies Home Medications Medication Instructions Recorded Confirmed Last Taken Type aripiprazole 10 mg tablet 10 mg PO DAILY 09/03/22 09/12/22 Unknown History trazodone 100 mg tablet 200 mg PO BEDTIME 09/03/22 09/12/22 09/02/22 History aspirin 81 mg tablet,delayed 81 mg PO DAILY 30 days #30 tabs 09/07/22 09/12/22 Unknown Rx release atorvastatin 40 mg tablet 40 mg PO BEDTIME 30 days #30 tabs 09/07/22 09/12/22 Unknown Rx clopidogrel 75 mg tablet 75 mg PO DAILY 30 days #30 tabs 03/25/23 03/30/23 Unknown Rx famotidine 20 mg tablet 20 mg PO BID 30 days #60 tabs 09/07/22 09/12/22 Unknown Rx isosorbide mononitrate 30 mg 30 mg PO DAILY 30 days #30 tabs 09/07/22 09/12/22 Unknown Rx tablet,extended release 24 hr metoprolol tartrate 25 mg tablet 25 mg PO BID@0900,2100 30 days #60 09/07/22 09/12/22 Unknown Rx tabs clonazepam 0.5 mg tablet 0.25 mg PO BID 09/12/22 09/12/22 Unknown History Allergies Allergy/AdvReac Type Severity Reaction Status Date / Time shrimp Allergy Severe ALGY-Swell Verified 09/06/22 07:18 Lip/Tongue/Throat Penicillins Allergy Unknown Unknown Verified 09/12/22 11:18 PFSH Acute 2 PFSH: Medical History (Updated 01/19/24 @ 10:36 by Dio Jordan MD) Schizophrenia Hyperlipidemia GERD (gastroesophageal reflux disease) Coronary artery disease Carotid artery disease Nicotine dependence Cardiomyopathy CVA (cerebral vascular accident) HTN (hypertension) Hx of completed stroke Surgical History (Updated 01/19/24 @ 10:25 by Dio Jordan MD) S/P cholecystectomy S/P tonsillectomy Social History (Updated 01/19/24 @ 10:26 by Dio Jordan MD) Smoking and tobacco/nicotine status: current every day tobacco/nicotine user Alcohol intake: never Substance/Drug Use: former Vitals/I&O/Wt Last Vital Signs Temp 97.7 F 01/19/24 04:58 Pulse 57 L 01/19/24 09:04 Resp 18 01/19/24 10:11 BP 168/81 01/19/24 08:41 Pulse Ox 95 01/19/24 10:11 O2 Del Method Room Air 01/19/24 08:57 Weight last 48 hrs Weight 54.431 kg Physical Exam 2 Narrative: General exam is white male, somewhat emotional, describing right chest pain which is still present. HEENT: Atraumatic normocephalic. Oropharynx is clear. Neck is supple no lymphadenopathy thyromegaly Cardiovascular regular rate and rhythm, heart sounds distant. Chest is barrel- shaped. Some pain to palpation of his right chest. Lungs bilateral expiratory wheezes. No crackles. Abdomen is soft nontender with positive bowel sounds. No obvious organomegaly exams deferred Extremities no cyanosis clubbing edema, cap refill brisk Skin no rash Neuro no focal deficits. Data 01/19/24 05:54 01/19/24 05:54 Other Labs: Chest x-ray by my review demonstrates no infiltrate, COPD is noted Previous EF 35% in 09/05 Please see angiogram results 09/05 with chronic total occlusion of mid LAD Previous carotid ultrasound 09/05 demonstrated carotid artery disease 50 to 69% LFTs are normal Troponin 23 with repeat of 23 Albumin 3.1 Lipase 27 I have ordered a urinalysis EKG by my read demonstrates initial EKG with sinus rhythm, left axis deviation, left bundle branch block. Repeat EKG demonstrates sinus rhythm, borderline left axis deviation, borderline intraventricular conduction delay. Does not quite make the cut off for a left bundle. Q waves are noted anteriorly. Significant T wave inversion that was present in 2022 is gone away. A&P Assessment and plan (1) Chest pain: Patient is a difficult historian Chest discomfort currently seems more on the right side, and is reproducible with palpation Serial troponins and EKGs Continue Plavix and aspirin, as well as statin and beta-isaac Telemetry Cardiology consultation. Will discuss with them regarding repeating echocardiogram Qualifiers: Chest pain type: unspecified Qualified Code(s): R07.9 - Chest pain, unspecified (2) Elevated troponin: Appears to be a type II elevation, see above (3) Hyponatremia: Patient with hyponatremia. This could be secondary to significant free water intake, schizophrenia/antipsychotic Repeat BMP tomorrow Hold any IV fluids if possible (4) Anemia: Patient with anemia Check stool Hemoccult Iron studies as well as B12 and folate Monitor closely for any worsening considering antiplatelets, DVT prophylaxis, steroids Protonix 40 mg IV every 12 hours currently (5) Nicotine dependence: Nicotine patch Abstinence (6) COPD (chronic obstructive pulmonary disease): Presentation is also consistent with an acute COPD exacerbation DuoNeb every 4 hours, budesonide twice daily Prednisone 40 mg daily, first dose now No need for antibiotic at this time Plan Schizophrenia. Continue home medicine once list has been reconciled. Other medical problems as outlined in past medical history Attestations 2 Medical Necessity Statement*: Will need less than 2 midnight stay for evaluation and treatment of chest discomfort. Diagnoses Chest pain R07.9 Chest pain type: unspecified Elevated troponin R79.89 Hyponatremia E87.1 Anemia D64.9 Nicotine dependence F17.200 COPD (chronic obstructive pulmonary disease) J44.9 Time Spent (min) 54
[2024-01-19] MEDS: predniSONE 20 mg Tablet 40 MG PO (10:40)
--- NOTE | 2024-01-19 10:46 | PC.PHAR ---
[id number] OVER MED LIST TODAY. PT TAKES INVEGA 6MG TABLET CURRENTLY AND IS GETTING READY TO START INVEGA SUSTENNA INJECTIONS.
--- NOTE | 2024-01-19 11:26 | ECG_ITS ---
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 Measurements Intervals [place] Rate: 60 P: 88 DE: 195 QRS: 19 QRSD: 129 T: 83 QT: 419 QTc: 422 Interpretive Statements SINUS RHYTHM ANTEROSEPTAL MYOCARDIAL INFARCTION , OF INDETERMINATE AGE [40+ ms Q WAVE IN V1-V4] Compared to ECG 01/19/2024 07:37:04 Sinus bradycardia no longer present Intraventricular conduction delay no longer present Myocardial infarct finding still present Electronically Signed On 01-19-2024 14:17:05 CDT by Evens Gloria M.D. [id number]
[2024-01-19] MEDS: aspirin 81 mg EC Tablet PO (11:38)
[2024-01-19] MEDS: pantoprazole 40 mg SDV IVP ×2 (11:38→23:13)
[2024-01-19] MEDS: enoxaparin 40 mg/0.4 mL Syringe SUBCUT (11:38)
[2024-01-19 11:42] LABS: Ferritin 163 ng/mL (30-400); Iron 26 ug/dL (59-158); Total Iron Binding Capacity 199 mcg/dl; Unsaturated Iron Binding 173 ug/dL (112-347)
[2024-01-19 11:48] LABS: Thyroid Stimulating Hormone 7.18 uIU/mL (0.27-4.20)
[2024-01-19 11:58] LABS: Vitamin B12 420 pg/mL (232-1245)
[2024-01-19 11:59] LABS: Folate Level 12.7 ng/mL (4.5-32.2)
--- NOTE | 2024-01-19 12:05 | USCV_ITS ---
Michael Miranda Age: 68 Gender: M : 1955 Exam Date: 01/19/2024 12:33 Ordering Phys: Dio Jordan MD Technologist: Exam Location: [facility] – [place] Indication: BP: / HR: Rhythm: Sinus Technical Quality: Poor MEASUREMENTS (Male / Female) Normal Values FINDINGS Left Ventricle Right Ventricle Right Atrium Left Atrium Mitral Valve Aortic Valve Tricuspid Valve Pulmonic Valve Pericardium Aorta IVC CONCLUSIONS Technically very poor quality echocardiogram. Cardiac structures not visualized because of extremely limited ultrasonic windows.Can not assess LV systolic function Chandrakant Méndez MD (Electronically Signed) Final Date: 19 January 2024 18:12 S
[2024-01-19 12:23] LABS: Troponin 5 6HR 22.13 ng/L (0-15)
[2024-01-19 12:25] LABS: Troponin 5 6HR Delta -0.87 ng/L (0-12)
[2024-01-19] MEDS: nicotine 21 mg Patch 1 PATCH TRANSDERMA (12:29)
[2024-01-19] MEDS: iron sucrose 200 MG in sodium chloride 0.9% (100 ml) 100 ML 220 MG IV (13:32)
--- NOTE | 2024-01-19 13:56 | P.CONIM_ITS ---
Providers/Reason For Consult 2 Consulting Physician/Specialty*: Chandrakant Méndez MD/ Cardiology Reason for Consult*: Chest pain Requesting Physician: Dr Curtis Attending Physician: Dio Jordan MD Primary Care Provider: Angelica Alfaro NP History of Present Illness History of Present Illness Michael Miranda is a 68 year old male with past medical history of ischemic cardiomyopathy, [employer] who presented with chest pain symptoms. He woke up with significant chest discomfort all over the chest however currently having only right-sided chest pain. Worse with palpation and inspiration. No exertional symptoms. He has COPD as well. EKG shows sinus rhythm with prior anteroseptal infarct findings. Review of Systems 2 General: Reports: 10 or more systems reviewed and unremarkable except in HPI and below Card: Reports: chest pain Resp: Reports: non-productive cough and wheezing; Denies: dyspnea or productive cough GI: Denies: abdominal pain, nausea, vomiting, hematochezia or melena Medications/Allergies Home Medications Medication Instructions Recorded Confirmed Last Taken Type trazodone 100 mg tablet 200 mg PO BEDTIME 09/03/22 01/19/24 01/18/24 History clopidogrel 75 mg tablet 75 mg PO DAILY 30 days #30 tabs 09/07/22 01/19/24 01/18/24 Rx isosorbide mononitrate 30 mg 30 mg PO DAILY 30 days #30 tabs 09/07/22 01/19/24 01/18/24 Rx tablet,extended release 24 hr albuterol sulfate 90 mcg/actuation 1 - 2 puff inhalation .Q4-6H PRN 01/19/24 01/19/24 Unknown History aerosol inhaler COUGH/CONGESTION aspirin 81 mg tablet,delayed 81 mg PO QAM 01/19/24 01/19/24 01/18/24 History release fluticasone fur. 200 mcg-umeclid 1 inh inhalation DAILY 01/19/24 01/19/24 01/18/24 History 62.5 mcg-vilant 25 mcg inhalat.powder (Trelegy Ellipta) hydroxyzine pamoate 25 mg capsule 25 - 50 mg PO BEDTIME 01/19/24 01/19/24 01/18/24 History ibuprofen 800 mg tablet 800 mg PO Q8H PRN PAIN OR 01/19/24 01/19/24 Unknown History INFLAMMATION lamotrigine 150 mg tablet 150 mg PO DAILY 01/19/24 01/19/24 01/18/24 History mirtazapine 15 mg tablet 15 mg PO DAILY 01/19/24 01/19/24 01/18/24 History paliperidone 6 mg tablet,extended 6 mg PO DAILY 01/19/24 01/19/24 01/18/24 History release 24 hr paliperidone palmitate 156 mg/mL 156 mg IM .MONTHLY 01/19/24 01/19/24 Unknown History intramuscular syringe (Invega SustUnified Office) paliperidone palmitate 234 mg/1.5 234 mg IM .MONTHLY 01/19/24 01/19/24 Unknown History mL intramuscular syringe (Invega DataRank) varenicline 0.5 mg (11)-1 mg (42) See Rx Instructions .Route .COMPLEX 01/19/24 01/19/24 01/18/24 History tablets in a dose pack Allergies Allergy/AdvReac Type Severity Reaction Status Date / Time shrimp Allergy Severe ALGY-Swell Verified 09/06/22 07:18 Lip/Tongue/Throat Penicillins Allergy Unknown Unknown Verified 09/12/22 11:18 Current Medications Generic Name Dose Route Start Last Admin Trade Name Freq PRN Reason Stop Dose Admin Albuterol/Ipratropium 3 ml 01/19/24 11:11 01/19/24 11:30 Ipratropium-Albuterol 3 Ml Neb INHALATION 3 ml Q4H SUDHAKAR Administration Aspirin 81 mg 01/19/24 11:11 01/19/24 11:38 Aspirin 81 Mg Ec Tablet PO 81 mg DAILY SUDHAKAR Administration Enoxaparin Sodium 40 mg 01/19/24 11:11 01/19/24 11:38 Enoxaparin 40 Mg/0.4 Ml Syringe SUBCUT 40 mg Q24H SUDHAKAR Administration Morphine Sulfate 2 mg 01/19/24 11:11 01/19/24 13:30 Morphine 4 Mg/Ml Sdv 1 Ml IVP 2 mg Q4H PRN Administration SEVERE PAIN Nicotine 1 patch 01/19/24 12:25 01/19/24 12:29 Nicotine 21 Mg Patch TRANSDERMA 1 patch DAILY SUDHAKAR Administration Pantoprazole Sodium 40 mg 01/19/24 11:11 01/19/24 11:38 Pantoprazole 40 Mg Sdv IVP 40 mg Q12H SUDHAKAR Administration Prednisone 40 mg 01/19/24 10:30 01/19/24 10:40 Prednisone 20 Mg Tablet PO 40 mg DAILY SUDHAKAR Administration PFSH Acute 2 PFSH: Medical History Schizophrenia Hyperlipidemia GERD (gastroesophageal reflux disease) Coronary artery disease Carotid artery disease Nicotine dependence Cardiomyopathy CVA (cerebral vascular accident) HTN (hypertension) Hx of completed stroke Surgical History S/P cholecystectomy S/P tonsillectomy Social History Smoking and tobacco/nicotine status: current every day tobacco/nicotine user Alcohol intake: never Substance/Drug Use: former Vitals/I&O/Wt Last Vital Signs Temp 99.2 F 01/19/24 11:11 Pulse 68 01/19/24 11:37 Resp 16 01/19/24 11:30 BP 162/89 01/19/24 10:59 Pulse Ox 96 01/19/24 11:30 O2 Del Method Room Air 01/19/24 11:30 01/18/24 01/19/24 01/19/24 22:59 06:59 14:59 Intake Total 240 / 240 Output Total 300 / 300 Balance -60 / -60 Weight last 48 hrs Weight 122 lb 5.705 oz Weight 120 lb Physical Exam 2 Narrative: GENERAL: Patient is alert, awake and oriented x3. [] NECK: No jugular vein distension. [] HEENT: No cyanosis. No icterus. No pallor. [] HEART: Regular S1 and S2. No murmur, rub or gallop. [] LUNGS: Clear to auscultate bilaterally. [] CENTRAL NERVOUS SYSTEM: Grossly nonfocal. [] EXTREMITIES: Lower extremities with 1+ edema bilaterally Data 01/20/24 04:07 01/20/24 04:07 A&P Assessment and plan (1) Coronary artery disease: (2) Nicotine dependence: (3) Cardiomyopathy: (4) Chest pain: Qualifiers: Chest pain type: unspecified Qualified Code(s): R07.9 - Chest pain, unspecified (5) HTN (hypertension): Plan Patient's chest pain symptoms are atypical. Troponins have not trended up. Will obtain echocardiogram. If there is significant change, only then will need stress test. Low likelihood of CAD being because of his symptoms. Thank you for involving us with care of this patient. Will continue to follow. Please call with questions. Consult Attestations 2 Medical Necessity Statement: Care expected to cross 2 midnights. Coding Level of Care Code Acute Code for [facility] Fwd Diagnoses Coronary artery disease I25.10 Nicotine dependence F17.200 Cardiomyopathy I42.9 Chest pain R07.9 Chest pain type: unspecified HTN (hypertension) I10
[2024-01-19 15:45] LABS: Bilirubin Urine Negative (Negative); Blood Urine 2+ (Negative); Glucose Urine UA Negative (Normal); Ketones Urine Negative (Negative); Leukocyte Esterase Urine Negative (Negative); Nitrate Urine Negative (Negative); Protein Urine Negative (Negative); Specific Gravity, Urine 1.004 (1.005-1.030); Urine Appearance Clear (CLEAR); Urine Color Yellow (Yellow); Urobilinogen Urine 0.2 mg/dL (Negative)
[2024-01-19 15:51] LABS: Bacteria Urine None Seen /hpf; Hyaline Casts Urine 0-4 /lpf; RBC Urine 21-50 /hpf (0-2); Squamous Epithelial Cell Urine 0-5 /hpf (0-5); WBC Urine 0-5 /hpf (0-5)
[2024-01-19 15:57] LABS: Add Urine Culture? Yes
[2024-01-19] MEDS: oxyCODONE 5 mg IR Tab/Cap PO (18:21)
[2024-01-19] MEDS: budesonide 0.5 mg/2 mL Neb INHALATION (19:32)
[2024-01-19] MEDS: metoprolol tartrate 25 mg Tablet PO (20:06)
[2024-01-19] MEDS: atorvastatin 40 mg Tablet PO (20:06)
[2024-01-19] MEDS: LORazepam 0.5 mg Tablet PO (20:06)
--- NOTE | 2024-01-19 20:48 | PC.NURSE ---
Report called to CSU at this time
[2024-01-19] MEDS: trazodone 100 mg Tablet 200 MG PO (21:30)
[2024-01-20] VITALS (11 sets, daily range): BP systolic 135–140; BP diastolic 61–86; PULSE 54–73; RESP 20–26; TEMP 36.6–36.8; O2SAT 83–96
[2024-01-20] MEDS: ipratropium-albuterol 3 mL Neb INHALATION ×4 (01:12→11:42)
[2024-01-20 05:02] LABS: Basophils % 0.3 %; Eosinophils % 0.1 %; Hematocrit 30.4 % (37-53); Lymphocytes # 0.7 10^3/uL (0.8-4.8); Lymphocytes % 5.5 %; Mean Corpuscular HGB Conc 34.2 g/dL (30-55); Mean Corpuscular Hemoglobin 33.8 pg (27-33); Mean Corpuscular Volume 98.7 fl (82-101); Mean Platelet Volume 8.9 fL (7.4-10.4); Monocytes # 0.9 10^3/uL (0.2-0.9); Monocytes % 7.1 %; Neutrophils # 11.04 10^3/uL (1.8-7.7); Neutrophils % 86.5 %; Nucleated Red Blood Cells % 0 %; Platelet Count 327 10^3/cmm (157-399); Red Blood Count 3.08 10^6/uL (3.85-5.65); White Blood Count 12.77 10^3/uL (3.29-11.43)
[2024-01-20 05:29] LABS: Alanine Aminotransferase 18 U/L (0-41); Alkaline Phosphatase 98 U/L (40-130); Anion Gap 15.4 (5-19); Aspartate Amino Transferase 19 U/L (0-40); Blood Urea Nitrogen 13 mg/dL (8-23); Calcium 8.6 mg/dL (8.5-10.5); Carbon Dioxide 25 mmol/L (22-29); Chloride 94 mmol/L (98-107); Globulin 2.7 g/dL (1.3-4.6); Glomerular Filtration Rate 134.8 mL/min (90-130); Glucose 106 mg/dL (65-115); Magnesium 1.7 mg/dL (1.7-2.3); Osmolality Calculated 271 mOsm/kg (285-295); Potassium 4.4 mmol/L (3.5-5.1); Sodium 130 mmol/L (136-145); Total Bilirubin 0.2 mg/dL (0.15-1.2); Total Protein 5.7 g/dL (6.6-8.7)
--- NOTE | 2024-01-20 08:17 | PM.PN ---
Subjective Subjective: Patient is overall doing well. no chest pain Vitals/I&O/Wt Last Vital Signs Temp 98.2 F 01/20/24 04:00 Pulse 63 01/20/24 06:00 Resp 20 H 01/20/24 05:51 BP 135/61 01/20/24 04:00 Pulse Ox 93 01/20/24 05:51 O2 Del Method Nasal Cannula 01/20/24 05:51 O2 Flow Rate 2 01/20/24 05:51 01/19/24 01/20/24 01/20/24 22:59 06:59 14:59 Intake Total 240 / 590 Balance 240 / 290 Weight last 48 hrs Weight 126 lb Weight 122 lb 5.705 oz Weight 120 lb Physical Exam Narrative: GENERAL: Patient is alert, awake and oriented x3. [] NECK: No jugular vein distension. [] HEENT: No cyanosis. No icterus. No pallor. [] HEART: Regular S1 and S2. No murmur, rub or gallop. [] LUNGS: Clear to auscultate bilaterally. [] CENTRAL NERVOUS SYSTEM: Grossly nonfocal. [] EXTREMITIES: Lower extremities with 1+ edema bilaterally Data 01/20/24 04:07 01/20/24 04:07 A&P Assessment and plan (1) Coronary artery disease: (2) Nicotine dependence: (3) Cardiomyopathy: (4) Chest pain: Qualifiers: Chest pain type: unspecified Qualified Code(s): R07.9 - Chest pain, unspecified (5) HTN (hypertension): Plan Patient staying chest pain . Echo was very limited quality. At this time medical therapy is appropriate. Outpatient cardiology follow-up. Attestations Medical Necessity Statement*: Care expected to cross 2 midnights. Coding Level of Care Code Acute Code for [facility] Fwd Diagnoses Coronary artery disease I25.10 Nicotine dependence F17.200 Cardiomyopathy I42.9 Chest pain R07.9 Chest pain type: unspecified HTN (hypertension) I10
--- NOTE | 2024-01-20 08:20 | PM.DCS ---
Discharge Providers Date of Admission: 01/19/24 11:11 Date of Discharge: January 20, 2024 Attending Provider at Admission: Dio Jordan MD Attending Provider at Discharge: Dio Jordan MD Primary Care Provider: Angelica Alfaro NP Diagnoses at Discharge Discharge Diagnosis (1) Coronary artery disease: Status: Acute (2) Nicotine dependence: Status: Acute (3) Cardiomyopathy: Status: Acute (4) Chest pain: Status: Acute Qualifiers: Chest pain type: unspecified Qualified Code(s): R07.9 - Chest pain, unspecified (5) HTN (hypertension): Status: Acute Reason for Visit Reason for Visit: rib pain Hospital Course Hospital Course Michael is a 68-year-old white male with schizophrenia, carotid disease, coronary artery disease and cardiomyopathy) that presented to the hospital with chest discomfort. He reported he started having right sided chest discomfort after coughing yesterday. He has been trying to quit smoking. He has had no fevers or productivity to the cough. Even smoked a cigarette, felt better. He came in because of the chest discomfort, and there was concern as his troponin was elevated so he was admitted. During the course of his hospital stay, he had no significant concerning trend regarding his troponin. Cardiology evaluated him and thought this was atypical chest pain, not likely to be cardiac. Echocardiogram was performed, which did not demonstrate good enough quality to have a meaningful reading. Patient had no recurrent pain. Because of his wheezing on exam on admission he was treated for COPD exacerbation with nebs, and prednisone. By 8 he was markedly better, and it was thought he could be discharged home. Incidental findings during the hospital stay included microscopic hematuria for which she was referred to urology. He also has a history of laryngeal nodes for which he was referred to ENT. He will also see his primary care provider in 3 to 5 days. Anemia was found, iron deficient, for which she was given an iron infusion. I recommended he stop his ibuprofen which she was taking a significant amount each day and follow-up with his primary care provider. He will still need screening colonoscopy, possible EGD if he is not [place]. He and his sister were informed of the incidental findings, the hospital stay, and given the ability to ask questions and agreed with the plan. He is to stop smoking. He will follow-up with cardiology as well secondary to his cardiomyopathy which is ischemic. For his COPD exacerbation, he will discharge on 3 days of prednisone. Dose was lowered secondary to schizophrenia and concern of risk of psychosis with higher dose prednisone. Physical Exam Narrative: General exam no distress Neck is supple Cardiovascular regular rate rhythm Lungs clear Abdomen soft, benign Extremities no cyanosis clubbing edema Discharge Data Studies Completed and Pending Completed Studies During Hospitalization Category Date Time Status XR chest 1V [id number] Stat Exams 01/19/24 05:17 Completed CV. echo complete* [id number] Routine Ultrasound 01/19/24 12:05 Completed Pending at discharge Category Date Time Status Occult Blood Stool [Immunochemical Fecal OCB] Routine Lab 01/19/24 09:54 Uncollected Urine Culture Routine Lab 01/19/24 13:36 Received Radiology Impressions Chest X-Ray 01/19/24 05:17 IMPRESSION: No acute findings. Laboratory Results WBC 12.77 10^3/uL (3.29-11.43) H 01/20/24 04:07 RBC 3.08 10^6/uL (3.85-5.65) L 01/20/24 04:07 Hgb 10.40 g/dL (11.27-16.99) L 01/20/24 04:07 Hct 30.4 % (37-53) L 01/20/24 04:07 MCV 98.7 fl (82-101) 01/20/24 04:07 MCH 33.8 pg (27-33) H 01/20/24 04:07 MCHC 34.2 g/dL (30-55) 01/20/24 04:07 RDW 13.0 % (12.1-15.1) 01/20/24 04:07 Plt Count 327 10^3/cmm (157-399) 01/20/24 04:07 MPV 8.9 fL (7.4-10.4) 01/20/24 04:07 Neut % (Auto) 86.5 % 01/20/24 04:07 Lymph % (Auto) 5.5 % 01/20/24 04:07 [place] % (Auto) 7.1 % 01/20/24 04:07 Eos % (Auto) 0.1 % 01/20/24 04:07 Baso % (Auto) 0.3 % 01/20/24 04:07 Neut # (Auto) 11.04 10^3/uL (1.8-7.7) H 01/20/24 04:07 Lymph # (Auto) 0.7 10^3/uL (0.8-4.8) L 01/20/24 04:07 [place] # (Auto) 0.9 10^3/uL (0.2-0.9) 01/20/24 04:07 Eos # (Auto) 0.0 10^3/uL (0.0-0.8) 01/20/24 04:07 Baso # (Auto) 0.0 10^3/uL (0.0-0.1) 01/20/24 04:07 Nucleated RBC % (auto) 0 % 01/20/24 04:07 Nucleated RBCs # 0.0 /100WBC 01/20/24 04:07 Sodium 130 mmol/L (136-145) L 01/20/24 04:07 Potassium 4.4 mmol/L (3.5-5.1) 01/20/24 04:07 Chloride 94 mmol/L (98-107) L 01/20/24 04:07 Carbon Dioxide 25 mmol/L (22-29) 01/20/24 04:07 Anion Gap 15.4 (5-19) 01/20/24 04:07 BUN 13 mg/dL (8-23) 01/20/24 04:07 Creatinine 0.6 mg/dL (0.7-1.2) L 01/20/24 04:07 GFR Calculation 134.8 mL/min (90-130) H 01/20/24 04:07 Glucose 106 mg/dL (65-115) 01/20/24 04:07 Calculated Osmolality 271 mOsm/kg (285-295) L 01/20/24 04:07 Calcium 8.6 mg/dL (8.5-10.5) 01/20/24 04:07 Magnesium 1.7 mg/dL (1.7-2.3) 01/20/24 04:07 Iron 26 ug/dL (59-158) L 01/19/24 05:54 TIBC 199 mcg/dl 01/19/24 05:54 % Saturation 13.0 % (20-50) L 01/19/24 05:54 Unsat Iron Binding 173 ug/dL (112-347) 01/19/24 05:54 Ferritin 163 ng/mL (30-400) 01/19/24 05:54 Total Bilirubin 0.2 mg/dL (0.15-1.2) 01/20/24 04:07 AST 19 U/L (0-40) 01/20/24 04:07 ALT 18 U/L (0-41) 01/20/24 04:07 Alkaline Phosphatase 98 U/L (40-130) 01/20/24 04:07 Troponin T Baseline 23 ng/L (0-15) H 01/19/24 05:54 Troponin T 120 Minute 23.06 ng/L (0-15) H 01/19/24 07:47 Delta Troponin T 0.06 ABS# (0-10) 01/19/24 07:47 Troponin T Hi Sens 6Hr 22.13 ng/L (0-15) H 01/19/24 12:01 Troponin T Hi Sens 6Hr Delta -0.87 ng/L (0-12) L 01/19/24 12:01 Total Protein 5.7 g/dL (6.6-8.7) L 01/20/24 04:07 Albumin 3.0 g/dL (3.5-5.2) L 01/20/24 04:07 Globulin 2.7 g/dL (1.3-4.6) 01/20/24 04:07 Lipase 27 U/L (13-60) 01/19/24 05:54 Vitamin B12 420 pg/mL (232-1245) 01/19/24 05:54 Folate 12.7 ng/mL (4.5-32.2) 01/19/24 05:54 TSH 7.18 uIU/mL (0.27-4.20) H 01/19/24 05:54 Urine Color Yellow (Yellow) 01/19/24 13:36 Urine Appearance Clear (CLEAR) 01/19/24 13:36 Urine pH 8.0 (5-7) A 01/19/24 13:36 Ur Specific [place] 1.004 (1.005-1.030) L 01/19/24 13:36 Urine Protein Negative (Negative) 01/19/24 13:36 Urine Glucose (UA) Negative (Normal) 01/19/24 13:36 Urine Ketones Negative (Negative) 01/19/24 13:36 Urine Blood 2+ (Negative) A 01/19/24 13:36 Urine Nitrate Negative (Negative) 01/19/24 13:36 Urine Bilirubin Negative (Negative) 01/19/24 13:36 Urine Urobilinogen 0.2 mg/dL (Negative) 01/19/24 13:36 Ur Leukocyte Esterase Negative (Negative) 01/19/24 13:36 Urine RBC 21-50 /hpf (0-2) H 01/19/24 13:36 Urine WBC 0-5 /hpf (0-5) 01/19/24 13:36 Ur Squamous Epith Cells 0-5 /hpf (0-5) 01/19/24 13:36 Amorphous Sediment Not Reportable 01/19/24 13:36 Urine Bacteria None seen /hpf (NONE) 01/19/24 13:36 Hyaline Casts 0-4 /lpf H 01/19/24 13:36 Vitals Last Vital Signs Temp 98.2 F 01/20/24 04:00 Pulse 63 01/20/24 06:00 Resp 20 H 01/20/24 05:51 BP 135/61 01/20/24 04:00 Pulse Ox 93 01/20/24 05:51 O2 Del Method Nasal Cannula 01/20/24 05:51 O2 Flow Rate 2 01/20/24 05:51 Discharge Plan Discharge Patient Disposition: Home Condition: Stable Prescriptions: New albuterol sulfate 2.5 mg /3 mL (0.083 %) solution for nebulization 2.5 mg inhalation Q6H PRN (Reason: shortness of breath or wheezing) Qty: 180 0RF nicotine 21 mg/24 hr Patch 24 Hour 1 patch transdermal DAILY Qty: 14 0RF pantoprazole [Protonix] 40 mg tablet,delayed release (DR/EC) 40 mg PO DAILY Qty: 30 0RF prednisone 20 mg tablet 20 mg PO DAILY Qty: 3 0RF Continued trazodone 100 mg tablet 200 mg PO BEDTIME isosorbide mononitrate 30 mg Tablet Extended Release 24 Hr 30 mg PO DAILY 30 Days Qty: 30 2RF clopidogrel 75 mg Tablet 75 mg PO DAILY 30 Days Qty: 30 2RF aspirin 81 mg tablet,delayed release (DR/EC) 81 mg PO QAM lamotrigine 150 mg tablet 150 mg PO DAILY mirtazapine 15 mg tablet 15 mg PO DAILY albuterol sulfate 90 mcg/actuation HFA aerosol inhaler 1 - 2 puff INHALATION .Q4-6H PRN (Reason: COUGH/CONGESTION) hydroxyzine pamoate 25 mg capsule 25 - 50 mg PO BEDTIME varenicline 0.5 mg (11)- 1 mg (42) tablets,dose pack See Rx Instructions .ROUTE .COMPLEX Rx Instructions: TAKE DIRECTED PER PACKAGE INSTRUCTIONS paliperidone 6 mg tablet extended release 24 hr 6 mg PO DAILY Invega Sustenna 156 mg/mL syringe 156 mg IM .MONTHLY Invega Sustenna 234 mg/1.5 mL syringe 234 mg IM .MONTHLY Trelegy Ellipta 200-62.5-25 mcg blister with device 1 inh INHALATION DAILY Discontinued ibuprofen 800 mg tablet 800 mg PO Q8H PRN (Reason: PAIN OR INFLAMMATION) Discharge Orders: Discharge Order (Routine); Ordered 01/20/24 Ordered By: Dio Jordan Other Ambulatory Orders: DME: Nebulizer with Neb Kit (Order) Location: None Selected Ordered By: Dio Jordan Referrals: Angelica Alfaro NP [Primary Care Provider] - 4-7 days (CBC on follow-up, further evaluation of anemia) Nikkie Melendez FNP [Nurse Practitioner] - 2 weeks (Follow-up cardiomyopathy, ischemic) Discharge Diet: Cardiac Discharge Activity: Resume usual activity Patient Instructions: Opioid Safety Activity Restrictions/Additional Instructions: Stop ibuprofen. Take all medicine as prescribed Follow-up with your primary care provider 3 to 5 days ENT referral, history of laryngeal nodules Referral to urology, microscopic hematuria Return for any concerns Discharge Attestations Time Spent in Discharge Care*: greater than 30 min Quality Metrics Clinical Quality Measures [ No reported AMI, CVA or VTE this stay] Coding Level of Care Code 61631 Total time (in minutes) for Discharge: 35 Diagnoses Coronary artery disease I25.10 Nicotine dependence F17.200 Cardiomyopathy I42.9 Chest pain R07.9 Chest pain type: unspecified HTN (hypertension) I10
--- NOTE | 2024-01-20 08:22 | PC.SOCIAL ---
Nebulizer order faxed to HOME at this time.
[2024-01-20] MEDS: budesonide 0.5 mg/2 mL Neb INHALATION (08:44)
--- NOTE | 2024-01-20 08:57 | PC.CHAP ---
Pastoral Care Encounter/Spiritual Assessment Type of Contact [] Declined major case detective visit [] Patient/Family/Request visit [] Outpatient visit [] Follow-up visit [] Physician referral [] Code/Alert [x] Routine visit [] Staff referral [] Actively dying [] Patient sleeping [] Family support [] [] Out of room [] Palliative care [] [] Receiving care in room [] Pre-surgical visit [] Trauma [] Long length of stay [] ICU visit [] Other: Relational/Emotional Strength [x] Patient feels connected with others/family/visitors/staff [] Distress [] Loneliness/isolation [] Abandonment Spirituality of Patient [x] Person of [place] [] Attends [employer]ian of their [place] [x] Believes in Prayer [] Reads Bible or Christian materials [] There are Spiritual issues to be addressed Refuge Worker Interventions [x] Prayer [x] Active listening [x] Non-anxious presence [x] Spiritual/emotional support [] Crisis/trauma care [x] Spiritual counseling [] Bereavement support [] Provided bereavement packet [] Provided Bible/devotional materials [] Provided toy/stuffed animal, coloring book to patient or family member [] Provided Communion [] Anointing/[place] [] Salvation [x] Completed spiritual assessment [] Other: Impact on Illness or Injury [] Angry [] Fearful [] Anxious [] Often cries [] Exhaustion [] Unable to work [] Unable to attend presybeterian [] Unable to walk/stand [] Unable to read [] Unable to drive [] Unable to eat/drink [] Unable to sleep [] Unable to be with family [] Patient intubated [] Other: Summary Time spent with patient 10 min
[2024-01-20] MEDS: isosorbide mononitrate ER 30 mg Tablet PO (09:17)
[2024-01-20] MEDS: paliperidone ER 6 mg Tablet PO (09:17)
[2024-01-20] MEDS: lamoTRIgine 100 mg Tablet 150 MG PO (09:18)
[2024-01-20] MEDS: metoprolol tartrate 25 mg Tablet PO (09:19)
[2024-01-20] MEDS: mirtazapine 15 mg Tablet PO (09:19)
[2024-01-20] MEDS: predniSONE 20 mg Tablet 40 MG PO (09:19)
[2024-01-20] MEDS: aspirin 81 mg EC Tablet PO (09:19)
[2024-01-20] MEDS: clopidogrel 75 mg Tablet PO (09:19)
[2024-01-20] MEDS: nicotine 21 mg Patch 1 PATCH TRANSDERMA (09:20)
[2024-01-20] MEDS: enoxaparin 40 mg/0.4 mL Syringe SUBCUT (10:41)
[2024-01-20] MEDS: pantoprazole 40 mg SDV IVP (10:41)
--- NOTE | 2024-01-20 14:51 | PC.NURSE ---
Discharge instructions given and explained.pt verb understanding of instructions.discharged via w/c to exit.daughter to drive pt home.
== END 2024-01-20 14:30 | disposition home or self-care (01) ==
LOC: ER 06:33 → ICU 10:51 → CSU 01-20 05:41
PROVIDERS: Student in an Organized Health Care Education/Training Program; Admitting Provider Internal Medicine; Emergency Provider Family Medicine; PCP Nurse Practitioner Family; Visit Provider Internal Medicine
DX: I25.10 Atherosclerotic heart disease of native coronary artery without angina pectoris (principal); F17.200 Nicotine dependence, unspecified, uncomplicated; I42.9 Cardiomyopathy, unspecified; I10 Essential (primary) hypertension; F20.9 Schizophrenia, unspecified; Z86.73 Personal history of transient ischemic attack (TIA), and cerebral infarction without residual deficits; Z79.82 Long term (current) use of aspirin; J44.9 Chronic obstructive pulmonary disease, unspecified; D64.9 Anemia, unspecified; R79.89 Other specified abnormal findings of blood chemistry
CPT/HCPCS: 36415; 71045; 80053; 81001; 82607; 82728; 82746; 83540; 83550; 83690; 83735; 84443; 84484; 85025; 87086; 93005; 93306; 94640; 94760; 96365; 96372; 96375; 96376; 99285; G0378; J1650; J1756; J2270; J2470; J7512; J7626

== ENCOUNTER 2024-03-18 18:59 | Emergency (ER) | payer MEDICARE, SELFPAY ==
[2024-03-18] VITALS (8 sets, daily range): BP systolic 99–164; BP diastolic 52–105; PULSE 80–108; RESP 18–24; TEMP 36.6; O2SAT 82–97; BMI 22.6
--- NOTE | 2024-03-18 19:05 | W.ED.FALL ---
Documented by User: TAWNY Welch 03/19/24 00:18 HPI - Fall General: Chief Complaint: Fall Stated Complaint: Fall Time Seen by Provider: 03/18/24 19:01 History of Present Illness: 68-year-old male patient comes in today for injury secondary to a fall. Patient was walking down a hill on a gravel road when he tripped falling forward and striking his face against the ground. Patient states that he has difficulty with his balance and falls frequently. Patient denies loss of consciousness. Patient denies headache. Patient has multiple abrasions to the face, left nares, lower lip. Patient has significant swelling of the lower lip. Related Data Home Medications Medication Instructions Recorded Confirmed trazodone 100 mg tablet 200 mg PO BEDTIME 09/03/22 03/19/24 albuterol sulfate 90 mcg/actuation 1 - 2 puff inhalation .Q4-6H PRN 01/19/24 03/19/24 aerosol inhaler COUGH/CONGESTION aspirin 81 mg tablet,delayed 81 mg PO QAM 01/19/24 03/19/24 release fluticasone fur. 200 mcg-umeclid 1 inh inhalation DAILY 01/19/24 03/19/24 62.5 mcg-vilant 25 mcg inhalat.powder (Trelegy Ellipta) hydroxyzine pamoate 25 mg capsule 25 - 50 mg PO BEDTIME 01/19/24 03/19/24 mirtazapine 15 mg tablet 15 mg PO DAILY 01/19/24 03/19/24 paliperidone 6 mg tablet,extended 6 mg PO DAILY 01/19/24 03/19/24 release 24 hr varenicline 0.5 mg (11)-1 mg (42) See Rx Instructions .Route .COMPLEX 01/19/24 03/19/24 tablets in a dose pack Previous Rx's Medication Instructions Recorded clopidogrel 75 mg tablet 75 mg PO DAILY 30 days #30 tabs 09/07/22 albuterol sulfate 2.5 mg/3 mL 2.5 mg (3 mL) inhalation Q6H PRN 01/20/24 (0.083 %) solution for nebulization shortness of breath or wheezing #180 mL pantoprazole 40 mg tablet,delayed 40 mg PO DAILY #30 tabs 01/20/24 release (Protonix) hydrocodone 5 mg-acetaminophen 325 1 tab PO Q6H PRN pain #10 tabs 03/19/24 mg tablet levofloxacin 500 mg tablet 500 mg PO DAILY 7 days #7 tabs 03/19/24 Allergies Allergy/AdvReac Type Severity Reaction Status Date / Time shrimp Allergy Severe ALGY-Swell Verified 09/06/22 07:18 Lip/Tongue/Throat Penicillins Allergy Unknown Unknown Verified 09/12/22 11:18 Review of Systems General: Reports: 10 or more systems reviewed and unremarkable except in HPI and below PFSH ED PFSH: Medical History Schizophrenia Hyperlipidemia GERD (gastroesophageal reflux disease) Coronary artery disease Carotid artery disease Nicotine dependence Cardiomyopathy CVA (cerebral vascular accident) HTN (hypertension) Hx of completed stroke Surgical History S/P cholecystectomy S/P tonsillectomy Social History Smoking and tobacco/nicotine status: current every day tobacco/nicotine user Alcohol intake: never Substance/Drug Use: former Physical Exam Const: COMMON NORMALS: alert HENMT: HEAD & SCALP: no laceration NOSE: Epistaxis present on the left and Other nasal findings present (Large blood clot left nostril, superficial laceration left naris) GENERAL EAR: hearing grossly impaired MOUTH: other (Lower lip is swollen with bruising and hematoma) Neck/C-Spine: COMMON NORMALS: full ROM Chest: COMMONS NORMALS: normal inspection of the chest Resp: COMMON NORMALS: normal respiratory effort and clear to auscultation bilaterally AUSCULTATION: clear to auscultation bilaterally Cardio: COMMON NORMALS: regular rate RATE: regular rate Back/Pelvis: COMMON NORMALS: thoracic and lumbar spine normal to inspection Extremity: RIGHT UPPER EXTREMITY: Yes elbow joint (Lateral abrasion) and Yes wrist (Dorsal skin tear) Neuro: SENSORIUM/ORIENTATION: Yes alert Skin: NARRATIVE SKIN EXAM: Multiple abrasions to the face, lower lip, right elbow and forearm. Course Vital Signs: Vital signs: Vital Signs Temperature 98 F 03/18/24 19:05 Pulse Rate 85 03/19/24 08:22 Respiratory Rate 19 H 03/19/24 08:19 Blood Pressure 167/97 03/19/24 08:22 Pulse Oximetry 96 03/19/24 08:22 Oxygen Delivery Me thod Nasal Cannula 03/19/24 06:36 Oxygen Flow Rate 3 03/19/24 06:36 MDM - Fall Medical Decision Making 68-year-old male patient comes in today with injury to the face, head, and arm secondary to a fall. Patient tripped on some gravel and causing her to fall forward. Patient has some bleeding to the nostril on the left side, hematoma to the left lower lip, and abrasions to the left forearm and elbow. Differential diagnosis intracranial bleed, nasal bone fracture, nasal laceration, skin tears. CT of the head noted no intracranial abnormality. CT of cervical spine noted no cervical spine fracture. Facial CT noted a anterior nasal spine fracture and nasal bone fracture. Patient had a laceration of the nasal area with persistent bleeding. Patient does have a hematoma to the nasal septum. Patient also has a abrasion to the left lateral nose and a irregular laceration to the naris approximately 1 cm. 2009, patient saturations were noted to be in the 80s by nursing. Patient does routinely wear oxygen at home at 3 L per nasal cannula when needed. CT scan of the head came back negative for intracranial bleeding. Facial bones noted a nasal spine fracture and nasal bone fracture. Patient continued to have bleeding from the left naris. Laceration is noted to the naris. Probable septal hematoma is present. Hard to identify due to large amount of blood in the naris. Patient also has irregular laceration to the nare. Patient was advised external nose abrasion. Reviewed patient with Dr. Chicas about placing a Rhino Rocket he recommended consultation with [facility] ENT. Naris was packed with lidocaine and epinephrine impregnated gauze. 2029, 2% lidocaine with epinephrine saturated gauze was placed in the naris to help control bleeding. Some improvement was noted in the bleeding after placement of gauze. 2044, spoke with facial trauma at [facility] they recommended discussion further with ENT. 2099, bleeding persisted gauze was removed and a 7.5 cm AP Rhino Rocket was placed. 15 mL of air was placed in the reservoir. 2134, discussed patient with ENT at [facility], nurse practitioner Lianet, she recommended better control of patient's blood pressure and giving 1 g of TXA for better control of bleeding. At this time they did not accept patient for transfer stating the x-rays and fractures can be managed at a later date. 2349, bleeding is controlled. Patient's oxygen saturation is 97% on 3 L per nasal cannula. Patient is resting. Patient be discharged home with follow-up appointment for ear nose and throat at [facility]. They are to contact him in the morning to check on him in 2 give an appointment. Lab Data 03/19/24 05:51 03/18/24 20:25 Radiology Impressions Cervical Spine CT 03/18/24 19:06 IMPRESSION: 1. No acute cervical spine fracture. 2. Scarring versus bandlike consolidation in the right apex only partially visualized and incompletely assessed on this examination. If clinically indicated a dedicated chest CT on a nonemergent basis may be obtained for further evaluation. Elbow X-Ray 03/18/24 19:06 IMPRESSION: 1. There is a triangular shaped 4 mm density in the tissue just lateral to the lateral epicondyle. It is unclear whether this is a radiopaque foreign body or a chip of bone from the lateral epicondyle. Correlate clinically. 2. No joint effusion. 3. No fracture identified. Face CT 03/18/24 19:06 IMPRESSION: 1. Nasal bone fracture. 2. Anterior nasal spine fracture. 3. Soft tissue hematoma overlying the left mandible anteriorly with no underlying mandibular fracture. Head CT 03/18/24 19:06 IMPRESSION: 1. No acute intracranial abnormality. 2. Small-vessel ischemic disease. 3. Nasal bone fracture. Chest X-Ray 03/18/24 20:27 IMPRESSION: No acute findings. Hip/Pelvis X-Ray 03/18/24 22:40 IMPRESSION: 1. No acute fracture. 2. Severe degenerative changes in the right hip joint with sclerotic changes, severe joint space narrowing and osteophyte formations. Laboratory Results WBC 24.73 10^3/uL (3.29-11.43) H 03/19/24 05:51 RBC 2.68 10^6/uL (3.85-5.65) L 03/19/24 05:51 Hgb 8.70 g/dL (11.27-16.99) L 03/19/24 05:51 Hct 25.3 % (37-53) L 03/19/24 05:51 MCV 94.4 fl (82-101) 03/19/24 05:51 MCH 32.5 pg (27-33) 03/19/24 05:51 MCHC 34.4 g/dL (30-55) 03/19/24 05:51 RDW 13.7 % (12.1-15.1) 03/19/24 05:51 Plt Count 348 10^3/cmm (157-399) 03/19/24 05:51 MPV 9.3 fL (7.4-10.4) 03/19/24 05:51 Neut % (Auto) 93.6 % 03/19/24 05:51 Lymph % (Auto) 2.1 % 03/19/24 05:51 [place] % (Auto) 3.5 % 03/19/24 05:51 Eos % (Auto) 0.0 % 03/19/24 05:51 Baso % (Auto) 0.3 % 03/19/24 05:51 Neut # (Auto) 23.13 10^3/uL (1.8-7.7) H 03/19/24 05:51 Lymph # (Auto) 0.5 10^3/uL (0.8-4.8) L 03/19/24 05:51 [place] # (Auto) 0.9 10^3/uL (0.2-0.9) 03/19/24 05:51 Eos # (Auto) 0.0 10^3/uL (0.0-0.8) 03/19/24 05:51 Baso # (Auto) 0.1 10^3/uL (0.0-0.1) 03/19/24 05:51 Nucleated RBC % (auto) 0 % 03/19/24 05:51 Nucleated RBCs # 0.0 /100WBC 03/19/24 05:51 PT 14.70 SECONDS (12.1-14.9) 03/18/24 20:25 INR 1.12 (0.8-1.2) 03/18/24 20:25 Sodium 128 mmol/L (136-145) L 03/18/24 20:25 Potassium 4.4 mmol/L (3.5-5.1) 03/18/24 20:25 Chloride 92 mmol/L (98-107) L 03/18/24 20:25 Carbon Dioxide 26 mmol/L (22-29) 03/18/24 20:25 Anion Gap 14.4 (5-19) 03/18/24 20:25 BUN 13 mg/dL (8-23) 03/18/24 20:25 Creatinine 0.7 mg/dL (0.7-1.2) 03/18/24 20:25 GFR Calculation 112.8 mL/min (90-130) 03/18/24 20:25 Glucose 113 mg/dL (65-115) 03/18/24 20:25 Calculated Osmolality 267 mOsm/kg (285-295) L 03/18/24 20:25 Calcium 8.7 mg/dL (8.5-10.5) 03/18/24 20:25 Total Bilirubin 0.3 mg/dL (0.15-1.2) 03/18/24 20:25 AST 15 U/L (0-40) 03/18/24 20:25 ALT 9 U/L (0-41) 03/18/24 20:25 Alkaline Phosphatase 116 U/L (40-130) 03/18/24 20:25 Total Protein 6.7 g/dL (6.6-8.7) 03/18/24 20:25 Albumin 3.7 g/dL (3.5-5.2) 03/18/24 20:25 Globulin 3.0 g/dL (1.3-4.6) 03/18/24 20:25 Blood Type O Negative 03/18/24 20:51 Rho(D) Type Rh negative 03/18/24 20:51 Antibody Screen Negative 03/18/24 20:51 All radiology interpretation(s) finalized by discharge Discharge Plan Discharge Patient Disposition: Xfer Short-Term Hosp Clinical Impression: Epistaxis due to trauma Fracture of nasal bone Qualifiers: Encounter type: initial encounter Fracture type: open Qualified Code(s): S02.2XXB - Fracture of nasal bones, initial encounter for open fracture Fall Qualifiers: Encounter type: initial encounter Qualified Code(s): W19.XXXA - Unspecified fall, initial encounter Head injury Qualifiers: Encounter type: initial encounter Qualified Code(s): S09.90XA - Unspecified injury of head, initial encounter Condition: Stable Referrals: Angelica Alfaro NP [Primary Care Provider] - Wale Lacey DO [Referring] - Discharge Diet: Usual diet Discharge Activity: Increase activity as tolerated Patient Instructions: Epistaxis - Adult Activity Restrictions/Additional Instructions: meter supervisor prescription for antibiotics and take as directed. Use of medications for pain as needed. Allow the dried blood to flake off especially around the nose. Do not pick at your wounds. Soft diet until the laceration of the lip heals. May use ice or cold compresses for comfort. Drink plenty of water. The hearings reporter is to contact you in the morning to arrange for appointment for follow-up. Coding Level of Care Code ED Relocation Specialist for Chg Fwd Documented by User: Wiliam Robins DO 03/19/24 01:53 HPI - Fall General: Chief Complaint: Fall Stated Complaint: Fall Time Seen by Provider: 03/18/24 19:01 Related Data Home Medications Medication Instructions Recorded Confirmed trazodone 100 mg tablet 200 mg PO BEDTIME 09/03/22 03/19/24 albuterol sulfate 90 mcg/actuation 1 - 2 puff inhalation .Q4-6H PRN 01/19/24 03/19/24 aerosol inhaler COUGH/CONGESTION aspirin 81 mg tablet,delayed 81 mg PO QAM 01/19/24 03/19/24 release fluticasone fur. 200 mcg-umeclid 1 inh inhalation DAILY 01/19/24 03/19/24 62.5 mcg-vilant 25 mcg inhalat.powder (Trelegy Ellipta) hydroxyzine pamoate 25 mg capsule 25 - 50 mg PO BEDTIME 01/19/24 03/19/24 mirtazapine 15 mg tablet 15 mg PO DAILY 01/19/24 03/19/24 paliperidone 6 mg tablet,extended 6 mg PO DAILY 01/19/24 03/19/24 release 24 hr varenicline 0.5 mg (11)-1 mg (42) See Rx Instructions .Route .COMPLEX 01/19/24 03/19/24 tablets in a dose pack Previous Rx's Medication Instructions Recorded clopidogrel 75 mg tablet 75 mg PO DAILY 30 days #30 tabs 09/07/22 albuterol sulfate 2.5 mg/3 mL 2.5 mg (3 mL) inhalation Q6H PRN 01/20/24 (0.083 %) solution for nebulization shortness of breath or wheezing #180 mL pantoprazole 40 mg tablet,delayed 40 mg PO DAILY #30 tabs 01/20/24 release (Protonix) hydrocodone 5 mg-acetaminophen 325 1 tab PO Q6H PRN pain #10 tabs 03/19/24 mg tablet levofloxacin 500 mg tablet 500 mg PO DAILY 7 days #7 tabs 03/19/24 Allergies Allergy/AdvReac Type Severity Reaction Status Date / Time shrimp Allergy Severe ALGY-Swell Verified 09/06/22 07:18 Lip/Tongue/Throat Penicillins Allergy Unknown Unknown Verified 09/12/22 11:18 [facility]LY [facility] ED PFSH: Medical History Schizophrenia Hyperlipidemia GERD (gastroesophageal reflux disease) Coronary artery disease Carotid artery disease Nicotine dependence Cardiomyopathy CVA (cerebral vascular accident) HTN (hypertension) Hx of completed stroke Surgical History S/P cholecystectomy S/P tonsillectomy Social History Smoking and tobacco/nicotine status: current every day tobacco/nicotine user Alcohol intake: never Substance/Drug Use: former Course Vital Signs: Vital signs: Vital Signs Temperature 98 F 03/18/24 19:05 Pulse Rate 85 03/19/24 08:22 Respiratory Rate 19 H 03/19/24 08:19 Blood Pressure 167/97 03/19/24 08:22 Pulse Oximetry 96 03/19/24 08:22 Oxygen Delivery Me thod Nasal Cannula 03/19/24 06:36 Oxygen Flow Rate 3 03/19/24 06:36 MDM - Fall Medical Decision Making 68-year-old male patient comes in today with injury to the face, head, and arm secondary to a fall. Patient tripped on some gravel and causing her to fall forward. Patient has some bleeding to the nostril on the left side, hematoma to the left lower lip, and abrasions to the left forearm and elbow. Differential diagnosis intracranial bleed, nasal bone fracture, nasal laceration, skin tears. CT of the head noted no intracranial abnormality. CT of cervical spine noted no cervical spine fracture. Facial CT noted a anterior nasal spine fracture and nasal bone fracture. Patient had a laceration of the nasal area with persistent bleeding. Patient does have a hematoma to the nasal septum. Patient also has a abrasion to the left lateral nose and a irregular laceration to the naris approximately 1 cm. 2009, patient saturations were noted to be in the 80s by nursing. Patient does routinely wear oxygen at home at 3 L per nasal cannula when needed. CT scan of the head came back negative for intracranial bleeding. Facial bones noted a nasal spine fracture and nasal bone fracture. Patient continued to have bleeding from the left naris. Laceration is noted to the naris. Probable septal hematoma is present. Hard to identify due to large amount of blood in the naris. Patient also has irregular laceration to the nare. Patient was advised external nose abrasion. Reviewed patient with Dr. Chicas about placing a Rhino Rocket he recommended consultation with [facility] ENT. Naris was packed with lidocaine and epinephrine impregnated gauze. 2029, 2% lidocaine with epinephrine saturated gauze was placed in the naris to help control bleeding. Some improvement was noted in the bleeding after placement of gauze. 2044, spoke with facial trauma at [facility] they recommended discussion further with ENT. 2099, bleeding persisted gauze was removed and a 7.5 cm AP Rhino Rocket was placed. 15 mL of air was placed in the reservoir. 2134, discussed patient with ENT at [facility], nurse practitioner Lianet, she recommended better control of patient's blood pressure and giving 1 g of TXA for better control of bleeding. At this time they did not accept patient for transfer stating the x-rays and fractures can be managed at a later date. 2349, bleeding is controlled. Patient's oxygen saturation is 97% on 3 L per nasal cannula. Patient is resting. Patient be discharged home with follow-up appointment for ear nose and throat at [facility]. They are to contact him in the morning to check on him in 2 give an appointment. 0151 family presented to patient. Patient's left naris was still oozing blood, they felt uncomfortable to take him home because he lives by himself and is on a blood thinner. He is a very feeble in appearance. We do not have any ENT on-call right now per se however Dr. Marlow comes on shift at 8 AM. Family was consulted about this versus transfer. Family would like him to stay here if possible. Dr. Bernard was consulted, due to the lack of ENT coverage currently in the ill preparedness of the floor if he was to start bleeding again, we will keep the patient down here in the ER. Dr. Bernard said we could consult her for medical reasons. This was discussed with the family. We will keep him down here until Dr. Marlow can see him later on in the morning. Lab Data 03/19/24 05:51 03/18/24 20:25 Radiology Impressions Cervical Spine CT 03/18/24 19:06 IMPRESSION: 1. No acute cervical spine fracture. 2. Scarring versus bandlike consolidation in the right apex only partially visualized and incompletely assessed on this examination. If clinically indicated a dedicated chest CT on a nonemergent basis may be obtained for further evaluation. Elbow X-Ray 03/18/24 19:06 IMPRESSION: 1. There is a triangular shaped 4 mm density in the tissue just lateral to the lateral epicondyle. It is unclear whether this is a radiopaque foreign body or a chip of bone from the lateral epicondyle. Correlate clinically. 2. No joint effusion. 3. No fracture identified. Face CT 03/18/24 19:06 IMPRESSION: 1. Nasal bone fracture. 2. Anterior nasal spine fracture. 3. Soft tissue hematoma overlying the left mandible anteriorly with no underlying mandibular fracture. Head CT 03/18/24 19:06 IMPRESSION: 1. No acute intracranial abnormality. 2. Small-vessel ischemic disease. 3. Nasal bone fracture. Chest X-Ray 03/18/24 20:27 IMPRESSION: No acute findings. Hip/Pelvis X-Ray 03/18/24 22:40 IMPRESSION: 1. No acute fracture. 2. Severe degenerative changes in the right hip joint with sclerotic changes, severe joint space narrowing and osteophyte formations. Laboratory Results WBC 24.73 10^3/uL (3.29-11.43) H 03/19/24 05:51 RBC 2.68 10^6/uL (3.85-5.65) L 03/19/24 05:51 Hgb 8.70 g/dL (11.27-16.99) L 03/19/24 05:51 Hct 25.3 % (37-53) L 03/19/24 05:51 MCV 94.4 fl (82-101) 03/19/24 05:51 MCH 32.5 pg (27-33) 03/19/24 05:51 MCHC 34.4 g/dL (30-55) 03/19/24 05:51 RDW 13.7 % (12.1-15.1) 03/19/24 05:51 Plt Count 348 10^3/cmm (157-399) 03/19/24 05:51 MPV 9.3 fL (7.4-10.4) 03/19/24 05:51 Neut % (Auto) 93.6 % 03/19/24 05:51 Lymph % (Auto) 2.1 % 03/19/24 05:51 [place] % (Auto) 3.5 % 03/19/24 05:51 Eos % (Auto) 0.0 % 03/19/24 05:51 Baso % (Auto) 0.3 % 03/19/24 05:51 Neut # (Auto) 23.13 10^3/uL (1.8-7.7) H 03/19/24 05:51 Lymph # (Auto) 0.5 10^3/uL (0.8-4.8) L 03/19/24 05:51 [place] # (Auto) 0.9 10^3/uL (0.2-0.9) 03/19/24 05:51 Eos # (Auto) 0.0 10^3/uL (0.0-0.8) 03/19/24 05:51 Baso # (Auto) 0.1 10^3/uL (0.0-0.1) 03/19/24 05:51 Nucleated RBC % (auto) 0 % 03/19/24 05:51 Nucleated RBCs # 0.0 /100WBC 03/19/24 05:51 PT 14.70 SECONDS (12.1-14.9) 03/18/24 20:25 INR 1.12 (0.8-1.2) 03/18/24 20:25 Sodium 128 mmol/L (136-145) L 03/18/24 20:25 Potassium 4.4 mmol/L (3.5-5.1) 03/18/24 20:25 Chloride 92 mmol/L (98-107) L 03/18/24 20:25 Carbon Dioxide 26 mmol/L (22-29) 03/18/24 20:25 Anion Gap 14.4 (5-19) 03/18/24 20:25 BUN 13 mg/dL (8-23) 03/18/24 20:25 Creatinine 0.7 mg/dL (0.7-1.2) 03/18/24 20:25 GFR Calculation 112.8 mL/min (90-130) 03/18/24 20:25 Glucose 113 mg/dL (65-115) 03/18/24 20:25 Calculated Osmolality 267 mOsm/kg (285-295) L 03/18/24 20:25 Calcium 8.7 mg/dL (8.5-10.5) 03/18/24 20:25 Total Bilirubin 0.3 mg/dL (0.15-1.2) 03/18/24 20:25 AST 15 U/L (0-40) 03/18/24 20:25 ALT 9 U/L (0-41) 03/18/24 20:25 Alkaline Phosphatase 116 U/L (40-130) 03/18/24 20:25 Total Protein 6.7 g/dL (6.6-8.7) 03/18/24 20:25 Albumin 3.7 g/dL (3.5-5.2) 03/18/24 20:25 Globulin 3.0 g/dL (1.3-4.6) 03/18/24 20:25 Blood Type O Negative 03/18/24 20:51 Rho(D) Type Rh negative 03/18/24 20:51 Antibody Screen Negative 03/18/24 20:51 Discharge Plan Discharge Patient Disposition: Xfer Short-Term Hosp Clinical Impression: Epistaxis due to trauma Fracture of nasal bone Qualifiers: Encounter type: initial encounter Fracture type: open Qualified Code(s): S02.2XXB - Fracture of nasal bones, initial encounter for open fracture Fall Qualifiers: Encounter type: initial encounter Qualified Code(s): W19.XXXA - Unspecified fall, initial encounter Head injury Qualifiers: Encounter type: initial encounter Qualified Code(s): S09.90XA - Unspecified injury of head, initial encounter Condition: Stable Referrals: Angelica Alfaro NP [Primary Care Provider] - Wale Lacey DO [Referring] - Discharge Diet: Usual diet Discharge Activity: Increase activity as tolerated Patient Instructions: Epistaxis - Adult Activity Restrictions/Additional Instructions: meter supervisor prescription for antibiotics and take as directed. Use of medications for pain as needed. Allow the dried blood to flake off especially around the nose. Do not pick at your wounds. Soft diet until the laceration of the lip heals. May use ice or cold compresses for comfort. Drink plenty of water. The hearings reporter is to contact you in the morning to arrange for appointment for follow-up. Coding Level of Care Code ED Relocation Specialist for Chg Fwd Documented by User: Getachew Curtis DO 03/19/24 10:38 HPI - Fall General: Chief Complaint: Fall Stated Complaint: Fall Time Seen by Provider: 03/18/24 19:01 Related Data Home Medications Medication Instructions Recorded Confirmed trazodone 100 mg tablet 200 mg PO BEDTIME 09/03/22 03/19/24 albuterol sulfate 90 mcg/actuation 1 - 2 puff inhalation .Q4-6H PRN 01/19/24 03/19/24 aerosol inhaler COUGH/CONGESTION aspirin 81 mg tablet,delayed 81 mg PO QAM 01/19/24 03/19/24 release fluticasone fur. 200 mcg-umeclid 1 inh inhalation DAILY 01/19/24 03/19/24 62.5 mcg-vilant 25 mcg inhalat.powder (Trelegy Ellipta) hydroxyzine pamoate 25 mg capsule 25 - 50 mg PO BEDTIME 01/19/24 03/19/24 mirtazapine 15 mg tablet 15 mg PO DAILY 01/19/24 03/19/24 paliperidone 6 mg tablet,extended 6 mg PO DAILY 01/19/24 03/19/24 release 24 hr varenicline 0.5 mg (11)-1 mg (42) See Rx Instructions .Route .COMPLEX 01/19/24 03/19/24 tablets in a dose pack Previous Rx's Medication Instructions Recorded clopidogrel 75 mg tablet 75 mg PO DAILY 30 days #30 tabs 09/07/22 albuterol sulfate 2.5 mg/3 mL 2.5 mg (3 mL) inhalation Q6H PRN 01/20/24 (0.083 %) solution for nebulization shortness of breath or wheezing #180 mL pantoprazole 40 mg tablet,delayed 40 mg PO DAILY #30 tabs 01/20/24 release (Protonix) hydrocodone 5 mg-acetaminophen 325 1 tab PO Q6H PRN pain #10 tabs 03/19/24 mg tablet levofloxacin 500 mg tablet 500 mg PO DAILY 7 days #7 tabs 03/19/24 Allergies Allergy/AdvReac Type Severity Reaction Status Date / Time shrimp Allergy Severe ALGY-Swell Verified 09/06/22 07:18 Lip/Tongue/Throat Penicillins Allergy Unknown Unknown Verified 09/12/22 11:18 [facility]LY [facility] LAT[facility] ED PFSH: Medical History Schizophrenia Hyperlipidemia GERD (gastroesophageal reflux disease) Coronary artery disease Carotid artery disease Nicotine dependence Cardiomyopathy CVA (cerebral vascular accident) HTN (hypertension) Hx of completed stroke Surgical History S/P cholecystectomy S/P tonsillectomy Social History Smoking and tobacco/nicotine status: current every day tobacco/nicotine user Alcohol intake: never Substance/Drug Use: former Course Vital Signs: Vital signs: Vital Signs Temperature 98 F 03/18/24 19:05 Pulse Rate 85 03/19/24 08:22 Respiratory Rate 19 H 03/19/24 08:19 Blood Pressure 167/97 03/19/24 08:22 Pulse Oximetry 96 03/19/24 08:22 Oxygen Delivery Me thod Nasal Cannula 03/19/24 06:36 Oxygen Flow Rate 3 03/19/24 06:36 MDM - Fall Medical Decision Making 68-year-old male patient comes in today with injury to the face, head, and arm secondary to a fall. Patient tripped on some gravel and causing her to fall forward. Patient has some bleeding to the nostril on the left side, hematoma to the left lower lip, and abrasions to the left forearm and elbow. Differential diagnosis intracranial bleed, nasal bone fracture, nasal laceration, skin tears. CT of the head noted no intracranial abnormality. CT of cervical spine noted no cervical spine fracture. Facial CT noted a anterior nasal spine fracture and nasal bone fracture. Patient had a laceration of the nasal area with persistent bleeding. Patient does have a hematoma to the nasal septum. Patient also has a abrasion to the left lateral nose and a irregular laceration to the naris approximately 1 cm. 2009, patient saturations were noted to be in the 80s by nursing. Patient does routinely wear oxygen at home at 3 L per nasal cannula when needed. CT scan of the head came back negative for intracranial bleeding. Facial bones noted a nasal spine fracture and nasal bone fracture. Patient continued to have bleeding from the left naris. Laceration is noted to the naris. Probable septal hematoma is present. Hard to identify due to large amount of blood in the naris. Patient also has irregular laceration to the nare. Patient was advised external nose abrasion. Reviewed patient with Dr. Chicas about placing a Rhino Rocket he recommended consultation with [facility] ENT. Naris was packed with lidocaine and epinephrine impregnated gauze. 2029, 2% lidocaine with epinephrine saturated gauze was placed in the naris to help control bleeding. Some improvement was noted in the bleeding after placement of gauze. 2044, spoke with facial trauma at [facility] they recommended discussion further with ENT. 2099, bleeding persisted gauze was removed and a 7.5 cm AP Rhino Rocket was placed. 15 mL of air was placed in the reservoir. 2134, discussed patient with ENT at [facility], nurse practitioner Lianet, she recommended better control of patient's blood pressure and giving 1 g of TXA for better control of bleeding. At this time they did not accept patient for transfer stating the x-rays and fractures can be managed at a later date. 2348, bleeding is controlled. Patient's oxygen saturation is 97% on 3 L per nasal cannula. Patient is resting. Patient be discharged home with follow-up appointment for ear nose and throat at [facility]. They are to contact him in the morning to check on him in 2 give an appointment. 0151 family presented to patient. Patient's left naris was still oozing blood, they felt uncomfortable to take him home because he lives by himself and is on a blood thinner. He is a very feeble in appearance. We do not have any ENT on-call right now per se however Dr. Marlow comes on shift at 8 AM. Family was consulted about this versus transfer. Family would like him to stay here if possible. Dr. Bernard was consulted, due to the lack of ENT coverage currently in the ill preparedness of the floor if he was to start bleeding again, we will keep the patient down here in the ER. Dr. Bernard said we could consult her for medical reasons. This was discussed with the family. We will keep him down here until Dr. Marlow can see him later on in the morning. 0630 03/19/2024 Care assumed at change of shift patient is still have bleeding around the rhinal rockets and the hemostat gauze that was applied. TXA x 2 hemoglobin has decreased he has nasal bone fracture. Will transfer to [facility] Dr. Marrero will be the receiving for ER to ER trauma transfer. We do not have ENT at this time. There was a question of an elbow fracture however on palpation of elbows both are without significant pain or discomfort suspect that is a old osseous avulsion injury Medical Records I reviewed the patient's medical records. Lab Data I reviewed the patient's lab results. 03/19/24 05:51 03/18/24 20:25 Radiology Impressions Cervical Spine CT 03/18/24 19:06 IMPRESSION: 1. No acute cervical spine fracture. 2. Scarring versus bandlike consolidation in the right apex only partially visualized and incompletely assessed on this examination. If clinically indicated a dedicated chest CT on a nonemergent basis may be obtained for further evaluation. Elbow X-Ray 03/18/24 19:06 IMPRESSION: 1. There is a triangular shaped 4 mm density in the tissue just lateral to the lateral epicondyle. It is unclear whether this is a radiopaque foreign body or a chip of bone from the lateral epicondyle. Correlate clinically. 2. No joint effusion. 3. No fracture identified. Face CT 03/18/24 19:06 IMPRESSION: 1. Nasal bone fracture. 2. Anterior nasal spine fracture. 3. Soft tissue hematoma overlying the left mandible anteriorly with no underlying mandibular fracture. Head CT 03/18/24 19:06 IMPRESSION: 1. No acute intracranial abnormality. 2. Small-vessel ischemic disease. 3. Nasal bone fracture. Chest X-Ray 03/18/24 20:27 IMPRESSION: No acute findings. Hip/Pelvis X-Ray 03/18/24 22:40 IMPRESSION: 1. No acute fracture. 2. Severe degenerative changes in the right hip joint with sclerotic changes, severe joint space narrowing and osteophyte formations. Laboratory Results WBC 24.73 10^3/uL (3.29-11.43) H 03/19/24 05:51 RBC 2.68 10^6/uL (3.85-5.65) L 03/19/24 05:51 Hgb 8.70 g/dL (11.27-16.99) L 03/19/24 05:51 Hct 25.3 % (37-53) L 03/19/24 05:51 MCV 94.4 fl (82-101) 03/19/24 05:51 MCH 32.5 pg (27-33) 03/19/24 05:51 MCHC 34.4 g/dL (30-55) 03/19/24 05:51 RDW 13.7 % (12.1-15.1) 03/19/24 05:51 Plt Count 348 10^3/cmm (157-399) 03/19/24 05:51 MPV 9.3 fL (7.4-10.4) 03/19/24 05:51 Neut % (Auto) 93.6 % 03/19/24 05:51 Lymph % (Auto) 2.1 % 03/19/24 05:51 [place] % (Auto) 3.5 % 03/19/24 05:51 Eos % (Auto) 0.0 % 03/19/24 05:51 Baso % (Auto) 0.3 % 03/19/24 05:51 Neut # (Auto) 23.13 10^3/uL (1.8-7.7) H 03/19/24 05:51 Lymph # (Auto) 0.5 10^3/uL (0.8-4.8) L 03/19/24 05:51 [place] # (Auto) 0.9 10^3/uL (0.2-0.9) 03/19/24 05:51 Eos # (Auto) 0.0 10^3/uL (0.0-0.8) 03/19/24 05:51 Baso # (Auto) 0.1 10^3/uL (0.0-0.1) 03/19/24 05:51 Nucleated RBC % (auto) 0 % 03/19/24 05:51 Nucleated RBCs # 0.0 /100WBC 03/19/24 05:51 PT 14.70 SECONDS (12.1-14.9) 03/18/24 20:25 INR 1.12 (0.8-1.2) 03/18/24 20:25 Sodium 128 mmol/L (136-145) L 03/18/24 20:25 Potassium 4.4 mmol/L (3.5-5.1) 03/18/24 20:25 Chloride 92 mmol/L (98-107) L 03/18/24 20:25 Carbon Dioxide 26 mmol/L (22-29) 03/18/24 20:25 Anion Gap 14.4 (5-19) 03/18/24 20:25 BUN 13 mg/dL (8-23) 03/18/24 20:25 Creatinine 0.7 mg/dL (0.7-1.2) 03/18/24 20:25 GFR Calculation 112.8 mL/min (90-130) 03/18/24 20:25 Glucose 113 mg/dL (65-115) 03/18/24 20:25 Calculated Osmolality 267 mOsm/kg (285-295) L 03/18/24 20:25 Calcium 8.7 mg/dL (8.5-10.5) 03/18/24 20:25 Total Bilirubin 0.3 mg/dL (0.15-1.2) 03/18/24 20:25 AST 15 U/L (0-40) 03/18/24 20:25 ALT 9 U/L (0-41) 03/18/24 20:25 Alkaline Phosphatase 116 U/L (40-130) 03/18/24 20:25 Total Protein 6.7 g/dL (6.6-8.7) 10/03/24 20:25 Albumin 3.7 g/dL (3.5-5.2) 03/18/24 20:25 Globulin 3.0 g/dL (1.3-4.6) 03/18/24 20:25 Blood Type O Negative 03/18/24 20:51 Rho(D) Type Rh negative 03/18/24 20:51 Antibody Screen Negative 03/18/24 20:51 Discharge Plan Discharge Patient Disposition: Xfer Short-Term Hosp Clinical Impression: Epistaxis due to trauma Fracture of nasal bone Qualifiers: Encounter type: initial encounter Fracture type: open Qualified Code(s): S02.2XXB - Fracture of nasal bones, initial encounter for open fracture Fall Qualifiers: Encounter type: initial encounter Qualified Code(s): W19.XXXA - Unspecified fall, initial encounter Head injury Qualifiers: Encounter type: initial encounter Qualified Code(s): S09.90XA - Unspecified injury of head, initial encounter Condition: Stable Referrals: Angelica Alfaro NP [Primary Care Provider] - Wale Lacey DO [Referring] - Discharge Diet: Usual diet Discharge Activity: Increase activity as tolerated Patient Instructions: Epistaxis - Adult Activity Restrictions/Additional Instructions: meter supervisor prescription for antibiotics and take as directed. Use of medications for pain as needed. Allow the dried blood to flake off especially around the nose. Do not pick at your wounds. Soft diet until the laceration of the lip heals. May use ice or cold compresses for comfort. Drink plenty of water. The hearings reporter is to contact you in the morning to arrange for appointment for follow-up. Coding Level of Care Code ED Relocation Specialist for Lena Kenney
--- NOTE | 2024-03-18 19:06 | CTR_ITS ---
PROCEDURE INFORMATION: Exam: CT Maxillofacial Without Contrast Exam date and time: 03/18/2024 7:22 PM Age: 68 years old Clinical indication: Injury or trauma; Additional info: Fall injury TECHNIQUE: Imaging protocol: Computed tomography of the face without contrast. Radiation optimization: All CT scans at this facility use at least one of these dose optimization techniques: automated exposure control; mA and/or kV adjustment per patient size (includes targeted exams where dose is matched to clinical indication); or iterative reconstruction. COMPARISON: CT head wo con* [id number] 03/18/2024 7:22 PM RADIATION DOSE METRICS: Total DLP (mGy-cm): 651 FINDINGS: Orbital cavities: Orbits are normal. Globes are unremarkable. Paranasal sinuses: Large air-fluid level in the left maxillary sinus. Findings can be seen the setting acute sinusitis and blood. Moderate mucosal thickening in the right maxillary sinus. Bones: Nasal bone fracture. Anterior nasal spine fracture. Grade 1 posterior listhesis of C3 on C4 and grade 1 anterolisthesis of C4 on C5 and grade 1 posterior listhesis of C5 on C6. These may be chronic in nature. Soft tissues: Soft tissue hematoma overlying the left mandible anteriorly with no underlying mandibular fracture. CT/CT facial bones wo con* [id number] IMPRESSION: 1. Nasal bone fracture. 2. Anterior nasal spine fracture. 3. Soft tissue hematoma overlying the left mandible anteriorly with no underlying mandibular fracture.
--- NOTE | 2024-03-18 19:06 | CTR_ITS ---
PROCEDURE INFORMATION: Exam: CT Cervical Spine Without Contrast Exam date and time: 03/18/2024 7:22 PM Age: 68 years old Clinical indication: Injury or trauma; Additional info: Fall, injury TECHNIQUE: Imaging protocol: Computed tomography of the cervical spine without contrast. Radiation optimization: All CT scans at this facility use at least one of these dose optimization techniques: automated exposure control; mA and/or kV adjustment per patient size (includes targeted exams where dose is matched to clinical indication); or iterative reconstruction. COMPARISON: CT facial bones wo con* [id number] 03/18/2024 7:22 PM RADIATION DOSE METRICS: Total DLP (mGy-cm): 896 FINDINGS: Bones: Grade 1 posterior listhesis of C3 on C4 and C5 on C6 and grade 1 anterolisthesis C4 on C5. Severe degenerative disc disease at C4-C5 and C5-C6. Severe neural foraminal narrowing on the left at C3-C4, C4-C5, C5-C6. Lungs: Scarring versus bandlike consolidation in the right apex only partially visualized and incompletely assessed on this examination. If clinically indicated a dedicated chest CT on a nonemergent basis may be obtained for further evaluation. Soft tissues: Unremarkable. CT/CT cervical spin wo con* [id number] IMPRESSION: 1. No acute cervical spine fracture. 2. Scarring versus bandlike consolidation in the right apex only partially visualized and incompletely assessed on this examination. If clinically indicated a dedicated chest CT on a nonemergent basis may be obtained for further evaluation.
--- NOTE | 2024-03-18 19:06 | CTR_ITS ---
PROCEDURE INFORMATION: Exam: CT Head Without Contrast Exam date and time: 03/18/2024 7:22 PM Age: 68 years old Clinical indication: Injury or trauma; Additional info: Fall, injury TECHNIQUE: Imaging protocol: Computed tomography of the head without contrast. Radiation optimization: All CT scans at this facility use at least one of these dose optimization techniques: automated exposure control; mA and/or kV adjustment per patient size (includes targeted exams where dose is matched to clinical indication); or iterative reconstruction. COMPARISON: CT head thrombolytic [id number] 09/03/2022 10:59 AM RADIATION DOSE METRICS: Total DLP (mGy-cm): 1208 FINDINGS: Brain: Subcortical and periventricular white matter changes consistent with small-vessel ischemic disease in the appropriate clinical setting. Small-vessel ischemic disease. No acute intracranial abnormality. Cerebral ventricles: No ventriculomegaly. Paranasal sinuses: Air-fluid level in the left maxillary sinus. Mastoid air cells: Visualized mastoid air cells are well aerated. Bones: Nasal bone fracture. Soft tissues: Unremarkable. CT/CT head wo con* [id number] IMPRESSION: 1. No acute intracranial abnormality. 2. Small-vessel ischemic disease. 3. Nasal bone fracture.
--- NOTE | 2024-03-18 19:06 | XRR_ITS ---
PROCEDURE INFORMATION: Exam: XR Right Elbow Exam date and time: 03/18/2024 7:30 PM Age: 68 years old Clinical indication: Injury or trauma; Fall; Blunt trauma (contusions or hematomas); Elbow; Right; Additional info: Fall injury TECHNIQUE: Imaging protocol: Radiologic exam of the right elbow. Views: 3 or more views. COMPARISON: No relevant prior studies available. FINDINGS: Bones/joints: No joint effusion. No fracture identified. Soft tissues: There is a triangular shaped 4 mm density in the tissue just lateral to the lateral epicondyle. It is unclear whether this is a radiopaque foreign body or a chip of bone from the lateral epicondyle. Correlate clinically. XR/XR elbow RT min 3V* [id number] IMPRESSION: 1. There is a triangular shaped 4 mm density in the tissue just lateral to the lateral epicondyle. It is unclear whether this is a radiopaque foreign body or a chip of bone from the lateral epicondyle. Correlate clinically. 2. No joint effusion. 3. No fracture identified.
[2024-03-18] MEDS: fentaNYL 50 mcg/mL INJ 2mL IVP ×2 (20:26→21:13)
--- NOTE | 2024-03-18 20:27 | XRR_ITS ---
PROCEDURE INFORMATION: Exam: XR Chest Exam date and time: 03/18/2024 8:36 PM Age: 68 years old Clinical indication: Other: Copd TECHNIQUE: Imaging protocol: Radiologic exam of the chest. Views: 1 view. COMPARISON: CR XR chest 1V [id number] 01/19/2024 5:20 AM FINDINGS: Lungs: Unremarkable. No consolidation. Pleural spaces: Unremarkable. No pleural effusion. No pneumothorax. Heart/Mediastinum: Unremarkable. No cardiomegaly. Bones/joints: Unremarkable. XR/XR chest 1V portable [id number] IMPRESSION: No acute findings.
[2024-03-18 20:35] LABS: Basophils # 0.1 10^3/uL (0.0-0.1); Basophils % 0.3 %; Eosinophils # 0.2 10^3/uL (0.0-0.8); Eosinophils % 1.2 %; Lymphocytes # 0.8 10^3/uL (0.8-4.8); Lymphocytes % 3.9 %; Mean Corpuscular HGB Conc 32.9 g/dL (30-55); Mean Corpuscular Hemoglobin 31.8 pg (27-33); Mean Corpuscular Volume 96.9 fl (82-101); Mean Platelet Volume 8.7 fL (7.4-10.4); Monocytes # 0.9 10^3/uL (0.2-0.9); Monocytes % 4.4 %; Neutrophils # 18.01 10^3/uL (1.8-7.7); Neutrophils % 89.4 %; Nucleated Red Blood Cells % 0 %; Platelet Count 344 10^3/cmm (157-399); Red Blood Count 2.89 10^6/uL (3.85-5.65); Red Cell Distribution Width 13.5 % (12.1-15.1); White Blood Count 20.15 10^3/uL (3.29-11.43)
[2024-03-18 20:53] LABS: Alanine Aminotransferase 9 U/L (0-41); Albumin Level 3.7 g/dL (3.5-5.2); Alkaline Phosphatase 116 U/L (40-130); Anion Gap 14.4 (5-19); Aspartate Amino Transferase 15 U/L (0-40); Blood Urea Nitrogen 13 mg/dL (8-23); Calcium 8.7 mg/dL (8.5-10.5); Carbon Dioxide 26 mmol/L (22-29); Chloride 92 mmol/L (98-107); Creatinine Clr Calc Pharmacy 81.8127; Glomerular Filtration Rate 112.8 mL/min (90-130); Glucose 113 mg/dL (65-115); Osmolality Calculated 267 mOsm/kg (285-295); Potassium 4.4 mmol/L (3.5-5.1); Sodium 128 mmol/L (136-145); Total Bilirubin 0.3 mg/dL (0.15-1.2); Total Protein 6.7 g/dL (6.6-8.7)
[2024-03-18 21:10] LABS: INR 1.12 (0.8-1.2)
[2024-03-18] MEDS: ipratropium-albuterol 3 mL Neb INHALATION (21:13)
[2024-03-18] MEDS: lidocaine-epi 2% 20 mL INJ INJECTION (21:15)
[2024-03-18] MEDS: hyDRALAzine 20 mg/mL INJ 1 mL 10 MG IVP (21:42)
[2024-03-18] MEDS: tetanus-dipt-pertussis 0.5 mL SDV IM (21:51)
[2024-03-18] MEDS: ceFAZolin 2,000 mg SDV 2000 MG IVP (21:51)
[2024-03-18] MEDS: tranexamic acid 1,000 MG/100 ML PREMIX 600 MG IV (21:57)
[2024-03-18] MEDS: sodium chloride 0.9% 500 ML 999 ML IV (22:21)
--- NOTE | 2024-03-18 22:40 | XRR_ITS ---
PROCEDURE INFORMATION: Exam: XR Left Hip Exam date and time: 03/18/2024 10:49 PM Age: 68 years old Clinical indication: Injury or trauma; Fall; Blunt trauma (contusions or hematomas); Left; Hip and pelvic region; Additional info: Fall injury TECHNIQUE: Imaging protocol: Radiologic exam of the left hip. Views: 2 or 3 views hip with pelvis when performed. COMPARISON: No relevant prior studies available. FINDINGS: Bones/joints: Severe degenerative changes in the right hip joint with sclerotic changes, severe joint space narrowing and osteophyte formations. No acute fracture. Prominent bony protrusion along the superolateral aspect of the right femoral head and neck junction. Soft tissues: Unremarkable. XR/XR hip LT 2-3V wo/w pel* [id number] IMPRESSION: 1. No acute fracture. 2. Severe degenerative changes in the right hip joint with sclerotic changes, severe joint space narrowing and osteophyte formations.
[2024-03-19] VITALS (14 sets, daily range): BP systolic 119–182; BP diastolic 83–101; PULSE 78–99; RESP 18–20; O2SAT 94–98
[2024-03-19] MEDS: labetalol 5 mg/mL SDV 20mL 10 MG IVP ×2 (02:08→05:52)
[2024-03-19] MEDS: fentaNYL 50 mcg/mL INJ 2mL 25 MCG IVP (03:02)
[2024-03-19] MEDS: tranexamic acid 1,000 MG/100 ML PREMIX 600 MG IV (05:56)
[2024-03-19 06:16] LABS: Basophils # 0.1 10^3/uL (0.0-0.1); Basophils % 0.3 %; Hematocrit 25.3 % (37-53); Lymphocytes # 0.5 10^3/uL (0.8-4.8); Lymphocytes % 2.1 %; Mean Corpuscular HGB Conc 34.4 g/dL (30-55); Mean Corpuscular Hemoglobin 32.5 pg (27-33); Mean Corpuscular Volume 94.4 fl (82-101); Mean Platelet Volume 9.3 fL (7.4-10.4); Monocytes # 0.9 10^3/uL (0.2-0.9); Monocytes % 3.5 %; Neutrophils # 23.13 10^3/uL (1.8-7.7); Neutrophils % 93.6 %; Nucleated Red Blood Cells % 0 %; Platelet Count 348 10^3/cmm (157-399); Red Blood Count 2.68 10^6/uL (3.85-5.65); Red Cell Distribution Width 13.7 % (12.1-15.1); White Blood Count 24.73 10^3/uL (3.29-11.43)
--- NOTE | 2024-03-19 07:47 | PC.NURSE ---
THIS NURSE, CESAR PARRY, AND LAURA GILLETTE TECH, ATTEMPTED TO CLEAN BLOOD OFF OF PT FACE. PT UNABLE TO TOLERATE PROCEDURE FOR A FULL CLEAN UP.
[2024-03-19] MEDS: morphine 4 mg/mL SDV 1 mL 2 MG IVP (08:19)
== END 2024-03-19 09:41 | disposition short-term general hospital (02) ==
PROVIDERS: Emergency Medicine; Nurse Practitioner Family; Emergency Provider Family Medicine; PCP Nurse Practitioner Family
DX: R04.0 Epistaxis (principal); S02.2XXB Fracture of nasal bones, initial encounter for open fracture; S00.531A Contusion of lip, initial encounter; S00.81XA Abrasion of other part of head, initial encounter; S50.311A Abrasion of right elbow, initial encounter; S50.811A Abrasion of right forearm, initial encounter; E78.5 Hyperlipidemia, unspecified; I25.10 Atherosclerotic heart disease of native coronary artery without angina pectoris; I11.9 Hypertensive heart disease without heart failure; I43 Cardiomyopathy in diseases classified elsewhere; Z86.73 Personal history of transient ischemic attack (TIA), and cerebral infarction without residual deficits; Z72.0 Tobacco use; W01.0XXA Fall on same level from slipping, tripping and stumbling without subsequent striking against object, initial encounter; Y92.410 Unspecified street and highway as the place of occurrence of the external cause; Z23 Encounter for immunization
CPT/HCPCS: 36415; 70450; 70486; 71045; 72125; 73080; 73502; 80053; 85025; 85610; 86850; 86900; 90471; 90715; 94640; 96365; 96366; 96375; 96376; 99285; J0360; J0690; J2270; J3010; J3490; J7040